=== PATIENT | female | born 1950 | race Caucasian/White ===

== ENCOUNTER → 2018-12-07 | Outpatient (CLI) | payer BC, MEDICAID, SELFPAY ==
[2018-10-13 13:27] VITALS: BMI 35.2
[2018-12-07 11:23] LABS: AST(SGOT) 17 U/L (15-37); Alanine Aminotransfer ALT/SGPT 18 U/L (13-56); Albumin, Serum 3.9 g/dL (3.2-5.0); Alkaline Phosphatase 107 U/L (45-117); Anion Gap 4 (5-15); BUN 11 mg/dL (7-18); Calcium,Total 8.9 mg/dL (8.5-10.1); Chloride 107 mmol/L (98-107); Cholesterol 301 mg/dL (200); Creatinine, Serum 0.79 mg/dL (0.55-1.02); EST Glomerular Filtration Rate 77 mL/min (>60); Est Glom Filt Rate - Afr Amer 93 mL/min (>60); Globulin 4.1 g/dL (2.2-4.2); Glucose 105 mg/dL (74-106); High Density Lipoprotein 47 mg/dL; Potassium 3.7 mmol/L (3.5-5.1); Sodium Level 140 mmol/L (136-145); Triglycerides 137 mg/dL; Very Low Density Lipoprotein 27 mg/dL (5-40)
== END | disposition home or self-care (01) ==
LOC: LAB 09:51
PROVIDERS: Family Provider Family Medicine; PCP Family Medicine; Referring Provider Family Medicine; Visit Provider Family Medicine
DX: I10 Essential (primary) hypertension (principal); E78.00 Pure hypercholesterolemia, unspecified
CPT/HCPCS: 36415; 80053; 80061

== ENCOUNTER → 2019-06-09 | Outpatient (CLI) | payer BC, SELFPAY ==
[2019-06-09 09:52] VITALS: BMI 37.5
[2019-06-09 12:40] LABS: Cholesterol 184 mg/dL (200); High Density Lipoprotein 41 mg/dL; Triglycerides 148 mg/dL; Very Low Density Lipoprotein 30 mg/dL (5-40)
== END | disposition home or self-care (01) ==
LOC: BIMLAB 10:22
PROVIDERS: Family Provider Family Medicine; PCP Family Medicine; Visit Provider Family Medicine
DX: E78.00 Pure hypercholesterolemia, unspecified (principal)
CPT/HCPCS: 36415; 80061

== ENCOUNTER → 2020-01-20 | Outpatient (CLI) | payer BC, MEDICAID, SELFPAY ==
[2020-01-20 14:13] VITALS: BMI 37.5
[2020-01-20 16:53] LABS: ALB/GLOB Ratio 0.9 RATIO (0.9-2.4); AST(SGOT) 10 U/L (15-37); Alanine Aminotransfer ALT/SGPT 20 U/L (13-56); Alkaline Phosphatase 133 U/L (45-117); Anion Gap 8 (5-15); BUN 8 mg/dL (7-18); BUN/Creat Ratio 10.8 RATIO (10-20); Calcium,Total 9.2 mg/dL (8.5-10.1); Chloride 102 mmol/L (98-107); Cholesterol 190 mg/dL (200); Creatinine, Serum 0.74 mg/dL (0.55-1.02); EST Glomerular Filtration Rate 82 mL/min (>60); Est Glom Filt Rate - Afr Amer 99 mL/min (>60); Globulin 4.5 g/dL (2.2-4.2); Glucose 97 mg/dL (74-106); High Density Lipoprotein 41 mg/dL; Potassium 3.7 mmol/L (3.5-5.1); Protein, Total 8.5 g/dL (6.4-8.2); Sodium Level 138 mmol/L (136-145); Triglycerides 192 mg/dL; Very Low Density Lipoprotein 38 mg/dL (5-40)
== END | disposition home or self-care (01) ==
LOC: BIMLAB 14:30
PROVIDERS: PCP Family Medicine; Referring Provider Family Medicine; Visit Provider Family Medicine
DX: E78.00 Pure hypercholesterolemia, unspecified (principal)
CPT/HCPCS: 36415; 80053; 80061

== ENCOUNTER → 2020-01-31 10:42 | Outpatient (CLI) | payer MEDICARE, MEDICAID, SELFPAY ==
[2020-01-20 14:13] VITALS: BMI 37.5
== END ==
PROVIDERS: PCP Family Medicine; Referring Provider Family Medicine; Visit Provider Family Medicine
DX: R00.2 Palpitations (principal)
CPT/HCPCS: 93225; 93226

== ENCOUNTER 2020-06-01 12:57 | Emergency (ER) | payer MEDICARE, MEDICAID, SELFPAY ==
[2020-01-20 14:13] VITALS: BMI 37.5
[2020-06-01 12:58] VITALS: BP 162/101; PULSE 70; RESP 18; TEMP 37; O2SAT 97; BMI 36.1
--- NOTE | 2020-06-01 14:14 | ED.VIS.GEN ---
History of Present Illness Chief Complaint: Cold Sx Informant: Patient Onset: Days - 2 Narrative: Patient presents requesting Covid testing. 2 days noted slight tickle in her throat. She has really minimal dry cough. No fevers. No loss of taste or smell. No headache or dizziness. No vomiting or diarrhea. Denies asthma or COPD history. No direct Covid exposures that are known. She called her PCP office today and appointment at 4 PM however did not want a wait. Prior similar symptoms: No Past Medical History - Allergies and Home Meds Allergies/Adverse Reactions: Allergies No Known Allergies Allergy (Verified 06/01/20 12:58) Primary Care Physician: Mane Lugo DO [Primary Care Provider] - Past Medical History: - - Hypertension, hypercholesterolemia Smoking Status: Never smoker Review of Systems General: Denies: Chills, Fever, Sweats Eyes: Denies: Visual changes - bilaterally, Diplopia ENT: Denies: Rhinorrhea, Sore throat Cardiovascular: Denies: Chest pain, Palpitations Respiratory: Reports: Cough. Denies: Dyspnea, Dyspnea on exertion Gastrointestinal: Denies: Abdominal pain, Nausea, Vomiting, Diarrhea, Melena, Hematochezia Genitourinary: Denies: Dysuria, Hematuria, Frequency Musculoskeletal: Denies: Back pain, Extremity Pain Skin: Denies: Rash, Wounds Neurological: Denies: Headache, Weakness, Numbness Physical Exam Vital Signs/Narrative: Vital Signs Temp Pulse Resp BP Pulse Ox 06/01/20 12:58 98.6 F 70 18 162/101 H 97 Inital Vital Signs reviewed: Yes General: Well nourished, Well developed, No Acute Distress Head: Normocephalic, Atraumatic Eyes: Perrl, EOMI ENT: Moist mucous membranes, No rhinorrhea Neck: Supple, Nontender Cardiovascular: Regular rate, Regular rhythm, No murmurs Respiratory: No distress, CTA bilaterally, Chest nontender Abdomen: Soft, Nontender, Nondistended, Normal bowel sounds Back: Nontender, Normal Inspection Extremities: Nontender, No edema Skin: Normal color, No rash Neurological: Alert, Oriented x3, Cranial nerves II-XII grossly intact, Normal Strength, Normal Sensation Psychological: Normal affect, Normal Mood Diagnostic/Tx/Re-eval - Medical Decision Making Patient vitals stable nontoxic. Pulse ox stable no acute distress. Covid testing obtained and sent. I do not feel imaging studies are necessary at this time with very minimal symptoms. Strict signs and symptom discussed to return. All questions were answered. ED Disposition - Plan for ED Patient: Disposition: Home or Assisted Living Diagnosis: Suspected COVID-19 virus infection, Cough Referrals: Mane Lugo, DO [Primary Care Provider] - 3-5 Days if not improving Additional Instructions: Covid test pending
== END 2020-06-01 14:57 | disposition home or self-care (01) ==
LOC: ED 14:54
PROVIDERS: Emergency Provider Emergency Medicine; PCP Family Medicine
DX: U07.1 COVID-19 (principal); I10 Essential (primary) hypertension; E78.00 Pure hypercholesterolemia, unspecified
CPT/HCPCS: 87635; 99281; U0003

== ENCOUNTER → 2021-02-06 11:54 | Outpatient (CLI) | payer MEDICARE, MEDICAID, SELFPAY ==
[2021-02-06 11:26] VITALS: BMI 37.5
[2021-02-06 15:33] LABS: ALB/GLOB Ratio 0.9 RATIO (0.9-2.4); AST(SGOT) 11 U/L (15-37); Alanine Aminotransfer ALT/SGPT 17 U/L (13-56); Albumin, Serum 3.9 g/dL (3.2-5.0); Alkaline Phosphatase 127 U/L (45-117); Anion Gap 5 (5-15); BUN 8 mg/dL (7-18); BUN/Creat Ratio 9.9 RATIO (10-20); Calcium,Total 9.1 mg/dL (8.5-10.1); Chloride 105 mmol/L (98-107); Cholesterol 183 mg/dL (200); Creatinine, Serum 0.81 mg/dL (0.55-1.02); EST Glomerular Filtration Rate 74 mL/min (>60); Est Glom Filt Rate - Afr Amer 89 mL/min (>60); Globulin 4.4 g/dL (2.2-4.2); Glucose 140 mg/dL (74-106); High Density Lipoprotein 45 mg/dL; Potassium 3.6 mmol/L (3.5-5.1); Protein, Total 8.3 g/dL (6.4-8.2); Sodium Level 137 mmol/L (136-145); Triglycerides 124 mg/dL; Very Low Density Lipoprotein 25 mg/dL (5-40)
== END ==
PROVIDERS: PCP Family Medicine; Visit Provider Family Medicine
DX: E78.00 Pure hypercholesterolemia, unspecified (principal); I10 Essential (primary) hypertension
CPT/HCPCS: 36415; 80053; 80061

== ENCOUNTER → 2022-03-06 | Outpatient (CLI) | payer MEDICARE, MEDICAID, SELFPAY ==
[2022-03-06 14:58] LABS: Absolute Lymphocyte Count 2.08 X10^3/uL (0.83-4.51); Absolute Neutrophil Count 4.8 X10^3/uL (2.0-7.7); Basophil# 0.05 X10^3/uL; Basophil% 0.6 % (0-1); Eosinophil# 0.39 X10^3/uL; Eosinophils% 4.9 % (0-5); Hematocrit 39.9 % (37-47); Hemoglobin 13.5 g/dL (12.0-15.0); Lymphocyte # 2.08 X10^3/ul (0.83-4.51); Lymphocyte % 26.1 % (19-41); Mean Corp Hgb Conc 33.8 g/dL (32-36); Mean Corpuscular Volume 91.5 fL (81-99); Mean Platelet Vol. 10.6 fl (6.2-12.0); Monocyte# 0.59 X10^3/uL; Monocyte% 7.4 % (0-10); NRBC Flagged by Analyzer 0 % (0-5); Neutrophil # 4.82 X10^3/uL (2.7-7.7); Neutrophil % 60.5 % (47-70); Platelet Count 350 K/mm3 (150-450); RBC Distribution Width CV 12.2 % (11.6-14.6); RBC Distribution Width SD 40.6 fl (35.1-43.9); Red Blood Count 4.36 M/mm3 (4.2-5.4)
[2022-03-06 15:48] LABS: AST(SGOT) 15 U/L (15-37); Alanine Aminotransfer ALT/SGPT 20 U/L (13-56); Albumin, Serum 3.9 g/dL (3.2-5.0); Alkaline Phosphatase 109 U/L (45-117); Anion Gap 4 (5-15); BUN 16 mg/dL (7-18); BUN/Creat Ratio 15.4 RATIO (10-20); Calcium,Total 9.1 mg/dL (8.5-10.1); Chloride 108 mmol/L (98-107); Cholesterol 193 mg/dL (200); Creatinine, Serum 1.04 mg/dL (0.55-1.02); EST Glomerular Filtration Rate 55 mL/min (>60); Est Glom Filt Rate - Afr Amer 67 mL/min (>60); Glucose 110 mg/dL (74-106); High Density Lipoprotein 41 mg/dL; Potassium 4.1 mmol/L (3.5-5.1); Protein, Total 7.9 g/dL (6.4-8.2); Sodium Level 138 mmol/L (136-145); Thyroid Stim Hormone (TSH) 1.23 uIU/mL (0.358-3.74); Triglycerides 246 mg/dL; Very Low Density Lipoprotein 49 mg/dL (5-40)
== END | disposition home or self-care (01) ==
LOC: BIMLAB 14:24
PROVIDERS: PCP Family Medicine; Visit Provider Nurse Practitioner Family
DX: I10 Essential (primary) hypertension (principal); E78.00 Pure hypercholesterolemia, unspecified; H81.10 Benign paroxysmal vertigo, unspecified ear
CPT/HCPCS: 36415; 80053; 80061; 84443; 85025

== ENCOUNTER 2022-11-30 20:32 | Inpatient (IN) | payer MEDICARE, MEDICAID, SELFPAY ==
[2022-11-30] VITALS (12 sets, daily range): BP systolic 132–158; BP diastolic 83–113; PULSE 99–114; RESP 18–28; TEMP 36.6–37; O2SAT 93–97; BMI 37.0
--- NOTE | 2022-11-30 19:58 | NURSING ---
Patient states that a doctor not sure of which one? They told her to stop taking all of her medication and only take Cardizem and Losartan.
--- NOTE | 2022-11-30 20:36 | CT_ITS ---
STUDY: CTA CHEST REASON FOR EXAM: Female, 72 years old. hypoxia RADIATION DOSAGE (If Supplied By Facility): CTDIvol = ( 24.36 ) mGy, DLP = ( 714.18 ) mGycm TECHNIQUE: The examination was performed with the intravenous administration of IV 100mL Isovue-370. Post-processing of the angiographic images was performed, with multiplanar reformation and 3D reconstruction. Individualized dose optimization techniques were used for this CT. COMPARISON: None. FINDINGS: Normal enhancement of the main pulmonary artery and right and left pulmonary arteries. Normal enhancement of the bilateral peripheral pulmonary arteries. There is no demonstrated pulmonary embolism. Normal thoracic aorta and visualized great vessels. There is no demonstrated aortic dissection. Normal heart and pericardium. Normal mediastinum. Normal hilar regions. Normal visualized trachea and bronchi. The lungs are well expanded. Normal pulmonary parenchyma. Moderate bilateral pleural effusions with bibasilar atelectasis. Normal chest wall structures. Normal osseous structures. Normal visualized upper abdomen. CT/CTA Chest W/WO Contrast IMPRESSION: No CT evidence of pulmonary embolism. Moderate bilateral pleural effusions with bibasilar atelectasis. Electronically Signed: Koko Castillo MD at 22:26 EDT ,
--- NOTE | 2022-11-30 20:42 | HP.PCM.HOS_ITS ---
HPI - General General Date of Admission: 11/30/22 Date of Service: 11/30/22 Chief Complaint: Shortness of breath HPI Narrative LACI REDDING, is a 72 F who presented to [facility] emergency department complaining of acute onset shortness of breath that started at 2 PM this afternoon. She lives with her daughter and she states her daughter bathes and perfumes. She states when she was exposed today she developed acute shortness of breath. She has no history of asthma or COPD and was never smoker. She has been diagnosed with A-fib with RVR and was recently seen (approximately 1 month ago) and Dr. Gallo's office. Her heart rate at that time was 136 and he had recommended increasing her metoprolol to 100 mg daily and he added Cardizem 120 mg. She was on Xarelto at that time. Upon presentation over it [facility] ED she was only taking Cardizem and losartan. I did question her about this and she states that someone told her to stop the other medications but was unable to tell me who did so. She indicated it was not the lime vat tender. She reported she felt fine before that. She has had no chest pain. She was having no shortness of breath previous to that. She has had no swelling in her legs or significant cough, fevers, or chills. Upon my exam she has significant increased work of breathing with tachycardia and tachypnea. Vital signs on presentation here demonstrated temperature of 98.6, heart rate 114 (heart rate at outside hospital was between 110 and 140), blood pressure is 154/113, respiratory rate 26, oxygen saturation is 95% on room air. She was documented to be in the 80s on room air prior to being transferred. Her CBC on presentation outside facility was unremarkable, chemistry panel was unremarkable, troponin was 785.9 and coags were normal. Chest x-ray and brain natruretic peptide were not done outside facility however I have ordered a CTA of the chest and a BNP here. EKG shows atrial fibrillation with very mild lateral T wave flattening and normal intervals but no changes consistent with acute ischemia. She was started on a Cardizem drip and a heparin drip prior to transfer. [facility] Medical History Atrial fibrillation BPPV (benign paroxysmal positional vertigo) Confusion Dizziness Essential hypertension Gait disturbance High cholesterol Hyperlipidemia Hypertension Intermittent palpitations Near syncope Nevus Non-smoker Thyroid nodule Home Medications losartan 100 mg tablet 100 mg PO QDAY #90 tabs 10/31/22 [Rx Last Taken Unknown] diltiazem HCl 120 mg capsule,extended release 24 hr (Cardizem CD) 120 mg PO DAILY heart rate 11/30/22 [History Last Taken Unknown] Allergy/AdvReac Type Severity Reaction Status Date / Time No Known Allergies Allergy Verified 10/31/22 13:10 Family History Father Hypertension High cholesterol Brother Parkinson disease Sister Seizures Sister Seizures Surgical History History of appendectomy History of cholecystectomy History of D&C History of foot surgery History of hysterectomy Social History (Updated 11/30/22 @ 20:[address] Autumn Villarreal DO) household members: family housing: house Smoking Status: Never smoker alcohol intake: never substance use type: does not use caffeine: Yes Type: carbonated beverages and tea Number of servings: 1 what type of physical activity do you participate in: none ROS Constitutional Constitutional: Denies anorexia, change in weight, chills, fatigue, fever(s), m alaise, night sweats, weakness or other Eyes Eyes: Denies blurry vision, change in eye color, change in vision, discharge from eye(s), double vision, erythema, eye pain, loss of vision or other ENT HEENT: Denies abnormal hearing, dysphagia, ear pain, epistaxis, headache(s), hearing loss, nasal congestion, nasal discharge, post nasal drip, sinus pressure, sore throat or other Cardiovascular Cardiovascular: Reports dyspnea on exertion; Denies chest pain, claudication, edema, lightheadedness, orthopnea, palpitations, paroxysmal nocturnal dyspnea, rapid heart rate, syncope or other Respiratory/Chest Respiratory/Chest: Reports shortness of breath at rest and shortness of breath with exertion; Denies cough, dyspnea, excessive phlegm production, hemoptysis, productive cough, wheezing or other Gastrointestinal Gastrointestinal: Denies abdominal pain, coffee ground emesis, constipation, diarrhea, dyspepsia, hematemesis, hematochezia, loose stools, melena, nausea, vomiting or other Genitourinary Genitourinary: Denies burning urination, difficulty urinating, dysuria, hematuria, nocturia, urinary frequency, urinary hesitancy, urinary incontinence, urinary urgency or other Musculoskeletal Musculoskeletal: Denies arthralgias, back pain, joint pain, joint stiffness, joint swelling, myalgias, neck pain or other Neurologic Neurologic: Denies abnormal gait, abnormal speech, confusion, disequilibrium, di zziness, focal weakness, headache(s), numbness, paresthesias, seizure-like activity, seizures, syncope, tingling, tremor(s) or other Psychiatric Psychiatric: Denies anxiety, depression, homicidal ideation, suicidal ideation or other Endocrine Endocrinology: Denies change in body appearance, cold intolerance, excessive sweating, heat intolerance, polydipsia, polyuria or other Hematologic/Lymphatic Hematologic/Lymphatic: Denies anemia, easy bleeding, easy bruising, lymphadenopathy or other Allergic/Immunologic Allergic/Immunologic: Denies rhinitis, hives, eczemia, asthma or other Vital Signs Vital Signs Vital Signs: 11/30/22 20:00 Temperature 98.6 F Temperature Source Oral Pulse Rate 114 H Respiratory Rate 26 H Blood Pressure 154/113 H Blood Pressure Mean 126 Blood Pressure Source Monitor Blood Pressure Position Semi-Fowlers Blood Pressure Location Right Forearm Pulse Ox 95 Oxygen Delivery Method Nasal Cannula Oxygen Flow Rate (L/min) 4 Weight Weight: 110.7 kg Body Mass Index (BMI) 37.0 Physical Exam Const alert, oriented x3 and well nourished; Negative for no apparent distress Constitutional Narrative: Obese, older white female, sitting up in bed, patient is significantly dyspneic at rest and with conversation on exam however she is quite talkative General Appearance: cooperative HEENT normocephalic, head/scalp atraumatic, hearing grossly normal bilaterally and moist oral mucous membranes HEENT Narrative: Edentulous with dentures in place, Mallampati 2, no thrush Eyes PERRL, EOMs intact bilaterally and conjunctivae normal Eyes Narrative: No scleral icterus Neck no lymphadenopathy, supple, No no JVD and no carotid bruits Neck Narrative: Positive JVD Resp no retractions and no use of accessory muscles Resp Narrative: Patient is a mild aspiratory distress with no signs of extremis, significant conversational dyspnea and dyspnea at rest, bibasilar crackles Auscultation: crackles; Negative for rhonchi or wheezes Cardio S1 normal heart sound, S2 normal heart sound, no murmurs, no rub, no gallops and no clicks Cardio Narrative: Tachycardia with irregularly irregular rhythm GI normal to inspection, nondistended, normoactive bowel sounds, soft to palpation and non-tender Extremity no clubbing, cyanosis or edema Extremity Narrative: 2+ pedal pulses Skin no rashes or lesions noted, no wounds, skin turgor normal, no jaundice, no petechiae and no mottling Neuro oriented x3, CN's II-XII intact bilaterally, moves all extremities and no focal motor deficits Speech: speech normal Motor Exam: strength 5/5 throughout Psych affect normal Psych Narrative: Patient pleasant, appropriate but seems somewhat anxious Assessment & Plan Assessment/Plan (1) Atrial fibrillation: (2) NSTEMI, initial episode of care: (3) Acute respiratory failure with hypoxia: (4) Medical non-compliance: PLAN: Plan A-fib with RVR -We will start home medications with metoprolol and oral Cardizem in hopes that we can wean the Cardizem drip -Continue heparin drip for now with transition to Xarelto once definitive management for NSTEMI has been decided -Check TSH -Check echocardiogram -Consult cardiology -Patient follows with Dr. Gallo at baseline NSTEMI -Unclear if this is demand ischemia with a type II NSTEMI related to her A-fib with RVR versus type I -Cycle cardiac enzymes -Check echocardiogram -Check lipids -Start atorvastatin 80 mg -Start aspirin daily -Continue metoprolol -Consult cardiology--> if needs cardiac catheterization will need to wait till Friday and less symptomatic Acute hypoxic respiratory failure -Patient without history of asthma or COPD so I highly doubt that this is irritant mediated hypoxia -I am more suspicious with heart failure with the above -Stat BMP and CTA pending to rule out heart failure and PE -Patient has not been compliant with her Xarelto -Continue supplemental oxygen and wean as able -Currently requiring 4 L -If looks like heart failure we will go ahead and start Lasix -If PE patient is already on a heparin drip and will continue Hypertension -Continue metoprolol and Cardizem as ordered -Discontinue losartan BPPV -It appears that patient is supposed to be an outpatient meclizine -Daughter is bringing and home medications to help with medic reconciliation -We will start on discharge if she is on this medication Hyperlipidemia -Patient is not currently on any medication -Check lipids as above -Atorvastatin for NSTEMI DVT prophylaxis -Patient is fully anticoagulated with heparin drip and will be on Xarelto subsequently CODE STATUS -Full code as verified on admission Charges/Coding Visit Charges Inpatient E&M: 30046 Init Hosp L3
[2022-11-30] MEDS: Atorvastatin Calcium 80 MG Tablet PO (21:28)
[2022-11-30] MEDS: Metoprolol(XL)Succ 100 MG Tablet PO (21:28)
[2022-11-30] MEDS: dilTIAZem CD 120 MG Capsule PO (21:28)
[2022-11-30] MEDS: Albuterol 2.5 MG/3 ML VIAL.NEB. INHALATION (21:36)
[2022-11-30 21:45] LABS: Troponin-I HS 2934 pg/mL (3.0-54.0)
[2022-11-30 21:46] LABS: BNP,B-Type NATRIURETIC PEPTIDE 252.3 pg/mL (0-100)
[2022-11-30] MEDS: Furosemide 40 MG/4 ML Vial IV (22:46)
[2022-11-30] MEDS: 0.9% Saline Lock 10 ML Syringe IV (22:46)
[2022-12-01] VITALS (11 sets, daily range): BP systolic 111–146; BP diastolic 64–100; PULSE 68–115; RESP 16–20; TEMP 36.4–37.1; O2SAT 85–99; BMI 36.8
[2022-12-01 00:36] LABS: Partial Thromboplast Time 36.7 Seconds (24.1-36.2)
[2022-12-01] MEDS: MELATONIN 3 MG TABLET PO (00:50)
[2022-12-01] MEDS: Heparin Injection (Vial) 5,000 UNIT/ML VIAL IV (00:50)
[2022-12-01] MEDS: HEPARIN/D5w 25,000 UNITS 25,000 UNITS/250 ML IV.SOLN. 12 UNITS CONT INF ×2 (00:50→21:22)
[2022-12-01 00:57] LABS: Troponin-I HS 3271 pg/mL (3.0-54.0)
[2022-12-01 02:44] LABS: Absolute Lymphocyte Count 2.33 X10^3/uL (0.83-4.51); Absolute Neutrophil Count 7.1 X10^3/uL (2.0-7.7); Basophil# 0.04 X10^3/uL; Basophil% 0.4 % (0-1); Eosinophil# 0.16 X10^3/uL; Eosinophils% 1.5 % (0-5); Hematocrit 37.4 % (37-47); Hemoglobin 11.9 g/dL (12.0-15.0); Lymphocyte # 2.33 X10^3/ul (0.83-4.51); Lymphocyte % 22.2 % (19-41); Mean Corp Hgb Conc 31.8 g/dL (32-36); Mean Corpuscular Hgb 28.7 pg (27.0-32.0); Mean Corpuscular Volume 90.1 fL (81-99); Monocyte# 0.82 X10^3/uL; Monocyte% 7.8 % (0-10); NRBC Flagged by Analyzer 0 % (0-5); Neutrophil % 67.6 % (47-70); Platelet Count 373 K/mm3 (150-450); RBC Distribution Width CV 12.7 % (11.6-14.6); RBC Distribution Width SD 41.4 fl (35.1-43.9); Red Blood Count 4.15 M/mm3 (4.2-5.4); White Blood Count 10.5 K/mm3 (4.4-11.0)
[2022-12-01 03:06] LABS: ALB/GLOB Ratio 0.9 RATIO (0.9-2.4); AST(SGOT) 40 U/L (15-37); Alanine Aminotransfer ALT/SGPT 27 U/L (13-56); Albumin, Serum 3.3 g/dL (3.2-5.0); Alkaline Phosphatase 113 U/L (45-117); Anion Gap 6 (5-15); BUN 8 mg/dL (7-18); BUN/Creat Ratio 10.4 RATIO (10-20); Calcium,Total 8.5 mg/dL (8.5-10.1); Chloride 101 mmol/L (98-107); Cholesterol 209 mg/dL (200); Creatinine, Serum 0.77 mg/dL (0.55-1.02); EST Glomerular Filtration Rate 78 mL/min (>60); Est Glom Filt Rate - Afr Amer 94 mL/min (>60); Estimated Creatinine Clearance 49.79 ml/min; Globulin 3.7 g/dL (2.2-4.2); Glucose 138 mg/dL (74-106); High Density Lipoprotein 38 mg/dL; Magnesium 1.9 mg/dL (1.6-2.6); Phosphorus 3.7 mg/dL (2.5-4.9); Potassium 3.6 mmol/L (3.5-5.1); Sodium Level 132 mmol/L (136-145); Thyroid Stim Hormone (TSH) 1.26 uIU/mL (0.358-3.74); Triglycerides 122 mg/dL; Very Low Density Lipoprotein 24 mg/dL (5-40)
[2022-12-01 03:41] LABS: Troponin-I HS 3193 pg/mL (3.0-54.0)
--- NOTE | 2022-12-01 05:55 | ECHOD_ITS ---
Reason For Study: Afib/Flutter Procedure This was a 2D Doppler, Color Flow transthoracic echocardiogram. Exam performed portable in patient room. Left Ventricle Normal LV size. Moderate concentric left ventricular hypertrophy. Moderate global left ventricular systolic dysfunction. The left ventricular ejection fraction is 40 %. Right Ventricle Normal RV size. Mild to moderate global right ventricular systolic dysfunction. Atria The left atrium is severely enlarged. The right atrium is moderately enlarged. Mitral Valve Mild mitral annular calcification. Mild (1+) mitral valve insufficiency. Tricuspid Valve Moderate (2+) tricuspid valve insufficiency. Normal pulmonary artery pressure. Aortic Valve Aortic sclerosis, no stenosis. Mild (1+) aortic valve insufficiency. Pulmonic Valve The pulmonic valve is not well visualized. Great Vessels Normal sized aortic root. Pericardium/Pleural No pericardial effusion. MMode/2D Measurements & Calculations LVIDd: 4.7 cm IVSd: 1.7 cm Ao root diam: 3.3 cm LVIDs: 3.6 cm LVPWd: 1.3 cm LA dimension: 4.4 cm RVDd: 3.5 cm FS: 24.4 % LAV(MOD-bp): 82.7 ml LA A4 area: 27.4 cm2 RA A4 area: 22.3 cm2 LAV(MOD-bp) Indexed: 37.4 ml/m2 LAV(MOD-sp2): 62.6 ml LAV(MOD-sp4): 87.8 ml Doppler Measurements & Calculations MV E max joe: 73.3 cm/sec MV V2 max: 91.9 cm/sec Ao V2 max: 118.6 cm/sec MV max P.4 mmHg Ao max P.8 mmHg MV V2 mean: 45.1 cm/sec Ao V2 mean: 88.0 cm/sec MV mean P.0 mmHg Ao mean P.6 mmHg MV V2 VTI: 16.4 cm Ao V2 VTI: 22.0 cm AV (velocity ratio): 0.74 LV V1 max: 78.0 cm/sec PA V2 max: 59.9 cm/sec TR max joe: 267.6 cm/sec LV V1 max P.5 mmHg TR max P.6 mmHg LV V1 mean P.8 mmHg LV V1 mean: 63.1 cm/sec LV V1 VTI: 16.3 cm ECHO/Echo Complete Interpretation Summary Moderate concentric left ventricular hypertrophy. Moderate global left ventricular systolic dysfunction. The left ventricular ejection fraction is 40 %. Mild to moderate global right ventricular systolic dysfunction. The left atrium is severely enlarged. The right atrium is moderately enlarged. Mild mitral annular calcification. Mild (1+) mitral valve insufficiency. Moderate (2+) tricuspid valve insufficiency. Aortic sclerosis, no stenosis. Mild (1+) aortic valve insufficiency. Ordering Physician: Autumn Villarreal Referring Physician: Epi Lugo M.D. Performed By: Dino Devries RCS
[2022-12-01 06:42] LABS: Partial Thromboplast Time 56.5 Seconds (24.1-36.2)
[2022-12-01] MEDS: Aspirin E.C. 81 MG Tablet PO (09:00)
--- NOTE | 2022-12-01 09:04 | EKG12_ITS ---
Test Reason : INITIAL Blood Pressure : / mmHG Vent. Rate : 088 BPM Atrial Rate : 000 BPM P-R Int : 000 ms QRS Dur : 090 ms QT Int : 424 ms P-R-T Axes : 000 055 214 degrees QTc Int : 513 ms Atrial fibrillation T wave abnormality, consider anterolateral ischemia Prolonged QT Abnormal ECG No previous ECGs available Confirmed by MIKE PEARL, ANA ([id number]), development editor HARMONY MONTEMAYOR ([id number]) on 12/03/2022 11:48:54 AM Referred By: KINJAL Confirmed By:ANA MCKEON MD
--- NOTE | 2022-12-01 09:24 | PCM.CONS.C ---
Assessment & Plan Assessment/Plan (1) NSTEMI, initial episode of care: PLAN: Presently asymptomatic. Continue medications. Discussed with patient regarding further course of action. Coronary angiography with possible revascularization offered. Risks benefits and alternatives discussed. She understand these and wishes to proceed. We will schedule her for coronary angiography in the morning. (2) Atrial fibrillation: PLAN: Continue rate control with metoprolol and diltiazem. (3) Essential hypertension: PLAN: Controlled. Continue diltiazem and metoprolol. (4) Hyperlipidemia: PLAN: On atorvastatin. HPI Consult Data Date of Consult: 12/01/22 HPI Narrative Reason for Consultation: NSTEMI HPI Narrative: The patient presented to the emergency room with complaints of acute onset shortness of breath. Since, her blood work-up has revealed elevated troponins ruling her in for non-ST elevation myocardial infarction. Patient denies any chest pains. [facility] Medical History Atrial fibrillation BPPV (benign paroxysmal positional vertigo) Confusion Dizziness Essential hypertension Gait disturbance High cholesterol Hyperlipidemia Hypertension Intermittent palpitations Near syncope Nevus Non-smoker Thyroid nodule Home Medications losartan 100 mg tablet 100 mg PO QDAY #90 tabs 10/31/22 [Rx Last Taken Unknown] diltiazem HCl 120 mg capsule,extended release 24 hr (Cardizem CD) 120 mg PO DAILY heart rate 11/30/22 [History Last Taken Unknown] Allergy/AdvReac Type Severity Reaction Status Date / Time No Known Allergies Allergy Verified 10/31/22 13:10 Family History Father Hypertension High cholesterol Brother Parkinson disease Sister Seizures Sister Seizures Surgical History History of appendectomy History of cholecystectomy History of D&C History of foot surgery History of hysterectomy Social History (Updated 11/30/22 @ 20:[address] Autumn Villarreal DO) household members: family housing: house Smoking Status: Never smoker alcohol intake: never substance use type: does not use caffeine: Yes Type: carbonated beverages and tea Number of servings: 1 what type of physical activity do you participate in: none Physical Exam Narrative Comfortable. No distress. No JVD. Heart sounds 1 and 2 are noted. Irregularly irregular. Chest clear to auscultation bilaterally. Abdomen soft. Alert oriented x3. No ankle edema. Risk Stratification Risk Stratification Applicable: No Objective Data Vital Signs: Vital Signs Temp Pulse Resp BP Pulse Ox O2 Del Method O2 Flow Rate 98.8 F 70 18 126/72 H 99 Nasal Cannula 5 12/01/22 04:00 12/01/22 04:00 12/01/22 04:00 12/01/22 04:00 12/01/22 04:00 12/01/22 07:35 12/01/22 07:35 FiO2 96 11/30/22 21:55 Oxygen Flow Rate (L/min) 5 Oxygen Delivery Method Nasal Cannula Weight: 242 lb 4.608 oz Body Mass Index (BMI) 36.8 Intake & Output: Intake and Output for Last 24 Hours 11/29/22 11/30/22 12/01/22 23:59 23:59 23:59 Intake Total 229.25 / 229.25 Output Total 1800 / 1800 Balance -1570.75 / -1570.75 Lab / Micro Data Result Diagrams: 12/01/22 02:37 12/01/22 02:37 Labs: Laboratory Results - last 24 hr 11/30/22 21:05: B-Natriuretic Peptide 252.3 H 11/30/22 21:05: Troponin I High Sens 2934 H* 12/01/22 00:10: APTT 36.7 H 12/01/22 00:10: Troponin I High Sens 3271 H* 12/01/22 02:37: WBC 10.5, RBC 4.15 L, Hgb 11.9 L, Hct 37.4, MCV 90.1, MCH 28.7, MCHC 31.8 L, RDW Std Deviation 41.4, RDW Coeff of Brianna 12.7, Plt Count 373, MPV 10.0, Immature Gran % (Auto) 0.500, Neut % (Auto) 67.6, Lymph % (Auto) 22.2, Mcdonough % (Auto) 7.8, Eos % (Auto) 1.5, Baso % (Auto) 0.4, Absolute Neuts (auto) 7.1, Absolute Lymphs (auto) 2.33, Nucleated RBC % 0 12/01/22 02:37: Sodium 132 L, Potassium 3.6, Chloride 101, Carbon Dioxide 25.0, Anion Gap 6, BUN 8, Creatinine 0.77, Estim Creat Clear Calc 49.79, Est GFR (MDRD) Af Amer 94, Est GFR (MDRD) Non-Af 78, BUN/Creatinine Ratio 10.4, Glucose 138 H, Calcium 8.5, Phosphorus 3.7, Magnesium 1.9, Total Bilirubin 1.00, AST 40 H, ALT 27, Alkaline Phosphatase 113, Total Protein 7.0, Albumin 3.3, Globulin 3.7, Albumin/Globulin Ratio 0.9, Triglycerides 122, Cholesterol 209 H, LDL Cholesterol 147 H, VLDL Cholesterol 24, HDL Cholesterol 38 L, TSH 1.26 12/01/22 02:37: Troponin I High Sens 3193 H* 12/01/22 06:20: APTT 56.5 H Cardiology Labs/Tests 11/30/22 21:05: B-Natriuretic Peptide 252.3 H 12/01/22 00:10: APTT 36.7 H 12/01/22 02:37: WBC 10.5, RBC 4.15 L, Hgb 11.9 L, Hct 37.4, MCV 90.1, MCH 28.7, MCHC 31.8 L, Plt Count 373, MPV 10.0, Immature Gran % (Auto) 0.500, Neut % (Auto) 67.6, Lymph % (Auto) 22.2, Mcdonough % (Auto) 7.8, Eos % (Auto) 1.5, Baso % (Auto) 0.4, Absolute Neuts (auto) 7.1, Nucleated RBC % 0 12/01/22 02:37: Sodium 132 L, Potassium 3.6, Chloride 101, Carbon Dioxide 25.0, Anion Gap 6, BUN 8, Creatinine 0.77, Est GFR (MDRD) Af Amer 94, Est GFR (MDRD) Non-Af 78, BUN/Creatinine Ratio 10.4, Glucose 138 H, Calcium 8.5, Phosphorus 3.7, Magnesium 1.9, Total Bilirubin 1.00, Triglycerides 122, Cholesterol 209 H, LDL Cholesterol 147 H, VLDL Cholesterol 24, HDL Cholesterol 38 L 12/01/22 06:20: APTT 56.5 H Rhythm: EKG: ECHO: Stress Test: Cardiac Cath: PCI: CT Surgery: Holter monitor: EPS: PPM: CXR: Chest CT Scan: Radiography Diagnostic Testing: Radiology Impression Chest CTA 11/30/22 20:36 IMPRESSION: No CT evidence of pulmonary embolism. Moderate bilateral pleural effusions with bibasilar atelectasis. Electronically Signed: Koko Castillo MD at 22:26 EDT ,
[2022-12-01] MEDS: 0.9% Saline Lock 10 ML Syringe IV ×2 (10:47→21:22)
[2022-12-01] MEDS: Furosemide 40 MG/4 ML Vial IV ×2 (10:48→17:47)
[2022-12-01] MEDS: dilTIAZem CD 120 MG Capsule PO (10:48)
[2022-12-01] MEDS: Metoprolol(XL)Succ 100 MG Tablet PO (10:48)
--- NOTE | 2022-12-01 12:50 | PN.HOSP_ITS ---
Reason for Visit Reason for Visit: Diagnoses Hyperlipidemia, unspecified (11/30/22) Essential (primary) hypertension (11/30/22) Non-ST elevation (NSTEMI) myocardial infarction (11/30/22) Unspecified atrial fibrillation (11/30/22) Acute respiratory failure with hypoxia (11/30/22) Patient's noncompliance with other medical treatment and regimen due to unspecified reason (11/30/22) Subjective Subjective Patient was seen and examined today, she is currently on 5 L of oxygen via nasal cannula and appears comfortable, I talked briefly with cardiology about her care, they are planning on doing a heart catheterization tomorrow. Objective Data Objective Data Vital Signs: Vital Signs Temp Pulse Resp BP Pulse Ox O2 Del Method O2 Flow Rate 98.8 F 89 18 131/84 H 99 Nasal Cannula 5 12/01/22 04:00 12/01/22 10:48 12/01/22 04:00 12/01/22 10:48 12/01/22 04:00 12/01/22 07:35 12/01/22 07:35 FiO2 96 11/30/22 21:55 Oxygen Flow Rate (L/min) 5 Oxygen Delivery Method Nasal Cannula Weight: 109.9 kg Body Mass Index (BMI) 36.8 Intake & Output: Intake and Output for Last 24 Hours 11/29/22 11/30/22 12/01/22 23:59 23:59 23:59 Intake Total 229.25 / 229.25 Output Total 1800 / 1800 Balance -1570.75 / -1570.75 Lab / Micro Data Result Diagrams: 12/01/22 02:37 12/01/22 02:37 Labs: Laboratory Results - last 24 hr 11/30/22 21:05: B-Natriuretic Peptide 252.3 H 11/30/22 21:05: Troponin I High Sens 2934 H* 12/01/22 00:10: APTT 36.7 H 12/01/22 00:10: Troponin I High Sens 3271 H* 12/01/22 02:37: WBC 10.5, RBC 4.15 L, Hgb 11.9 L, Hct 37.4, MCV 90.1, MCH 28.7, MCHC 31.8 L, RDW Std Deviation 41.4, RDW Coeff of Brianna 12.7, Plt Count 373, MPV 10.0, Immature Gran % (Auto) 0.500, Neut % (Auto) 67.6, Lymph % (Auto) 22.2, Gaines % (Auto) 7.8, Eos % (Auto) 1.5, Baso % (Auto) 0.4, Absolute Neuts (auto) 7.1, Absolute Lymphs (auto) 2.33, Nucleated RBC % 0 12/01/22 02:37: Sodium 132 L, Potassium 3.6, Chloride 101, Carbon Dioxide 25.0, Anion Gap 6, BUN 8, Creatinine 0.77, Estim Creat Clear Calc 49.79, Est GFR (MDRD ) Af Amer 94, Est GFR (MDRD) Non-Af 78, BUN/Creatinine Ratio 10.4, Glucose 138 H , Calcium 8.5, Phosphorus 3.7, Magnesium 1.9, Total Bilirubin 1.00, AST 40 H, ALT 27, Alkaline Phosphatase 113, Total Protein 7.0, Albumin 3.3, Globulin 3.7, Albumin/Globulin Ratio 0.9, Triglycerides 122, Cholesterol 209 H, LDL Cholesterol 147 H, VLDL Cholesterol 24, HDL Cholesterol 38 L, TSH 1.26 12/01/22 02:37: Troponin I High Sens 3193 H* 12/01/22 06:20: APTT 56.5 H Radiography Diagnostic Testing: Radiology Impression Chest CTA 11/30/22 20:36 IMPRESSION: No CT evidence of pulmonary embolism. Moderate bilateral pleural effusions with bibasilar atelectasis. Electronically Signed: Koko Castillo MD at 22:26 EDT , Physical Exam Const alert, oriented x3, no apparent distress and healthy appearing General Appearance: cooperative, well kempt and well developed Orientation / Consciousness: awake, oriented to person, oriented to place and oriented to time HEENT normocephalic, head/scalp atraumatic and moist oral mucous membranes Eyes PERRL, EOMs intact bilaterally and conjunctivae normal Neck supple, no JVD, thyroid normal and no carotid bruits General: trachea midline Resp normal respiratory effort, no retractions and no use of accessory muscles Resp Narrative: Breath sounds are diminished bilaterally at the base Auscultation: Negative for rales, rhonchi or wheezes Cardio S1 normal heart sound, S2 normal heart sound, no murmurs, no rub and no gallops Cardio Narrative: Heart rate and rhythm is irregular GI normal to inspection, nondistended, normoactive bowel sounds, soft to palpation, non-tender and non-distended Extremity no clubbing, cyanosis or edema Skin no rashes or lesions noted General Skin Exam: no breakdown Neuro oriented x3, CN's II-XII intact bilaterally, moves all extremities, no focal motor deficits and no sensory deficits noted Sensorium / Orientation: awake, alert, oriented to person, oriented to place and oriented to time Speech: speech normal Psych affect normal Assessment & Plan Assessment/Plan (1) Acute respiratory failure with hypoxia: PLAN: Plan 1. [id number] was seen by cardiology today, she will undergo cardiac catheterization tomorrow, she is under full anticoagulation at the present time #2 acute hypoxic respiratory failure secondary to congestive heart failure- patient is currently on IV Lasix #3 chronic A-fib with RVR-patient is on rate control medication at this time and she is on IV heparin, patient is not on a Cardizem drip any longer, cardiology is participating in her care #4 essential hypertension-patient will remain on her current medications #5 hyperlipidemia-patient is on a statin Total clinical time spent by myself addressing the patient's medical issues, reviewing all of her data, and collaborating with patient's care team 35 minutes Charges/Coding Visit Charges Inpatient E&M: 74584 Subs Hosp L2
[2022-12-01 12:58] LABS: Partial Thromboplast Time 57.1 Seconds (24.1-36.2)
[2022-12-01] MEDS: Atorvastatin Calcium 80 MG Tablet PO (21:22)
[2022-12-02] VITALS (11 sets, daily range): BP systolic 111–133; BP diastolic 74–115; PULSE 77–94; RESP 17–24; TEMP 36.3–36.8; O2SAT 93–98; BMI 36.8
--- NOTE | 2022-12-02 05:00 | EKG12_ITS ---
Test Reason : AM EKG Blood Pressure : / mmHG Vent. Rate : 092 BPM Atrial Rate : 000 BPM P-R Int : 000 ms QRS Dur : 090 ms QT Int : 384 ms P-R-T Axes : 000 036 240 degrees QTc Int : 474 ms Atrial fibrillation T wave abnormality, consider inferior ischemia T wave abnormality, consider anterolateral ischemia Prolonged QT Abnormal ECG When compared with ECG of 01-DEC-2022 09:43, MANUAL COMPARISON REQUIRED, DATA IS UNCONFIRMED Confirmed by MIKE PEARL, ANA ([id number]), visual effects editor HARMONY MONTEMAYOR ([id number]) on 12/03/2022 11:45:41 AM Referred By: Confirmed By:ANA MCKEON MD
[2022-12-02] MEDS: 0.9% Saline Lock 10 ML Syringe IV (05:12)
[2022-12-02] MEDS: 0.9% Normal Saline 1,000 ML 15 ML IV (05:12)
[2022-12-02] MEDS: Metoprolol(XL)Succ 100 MG Tablet PO (05:14)
[2022-12-02] MEDS: Aspirin E.C. 81 MG Tablet PO (05:14)
[2022-12-02] MEDS: dilTIAZem CD 120 MG Capsule PO (05:15)
[2022-12-02 07:35] LABS: Anion Gap 6 (5-15); BUN 15 mg/dL (7-18); BUN/Creat Ratio 18.7 RATIO (10-20); Calcium,Total 9.2 mg/dL (8.5-10.1); Chloride 102 mmol/L (98-107); EST Glomerular Filtration Rate 74 mL/min (>60); Est Glom Filt Rate - Afr Amer 90 mL/min (>60); Estimated Creatinine Clearance 62.24 ml/min; Glucose 123 mg/dL (74-106); Potassium 3.4 mmol/L (3.5-5.1); Sodium Level 135 mmol/L (136-145)
--- NOTE | 2022-12-02 07:48 | PN.HOSP_ITS ---
Reason for Visit Reason for Visit: Diagnoses Hyperlipidemia, unspecified (11/30/22) Essential (primary) hypertension (11/30/22) Non-ST elevation (NSTEMI) myocardial infarction (11/30/22) Unspecified atrial fibrillation (11/30/22) Acute respiratory failure with hypoxia (11/30/22) Patient's noncompliance with other medical treatment and regimen due to unspecified reason (11/30/22) Subjective Subjective Follow-up for non-STEMI. Scheduled for cardiac cath in the morning today. Objective Data Objective Data Vital Signs: Vital Signs Temp Pulse Resp BP Pulse Ox O2 Del Method O2 Flow Rate 97.3 F L 93 18 133/97 H 96 Nasal Cannula 3 12/02/22 05:10 12/02/22 05:14 12/02/22 05:10 12/02/22 05:10 12/02/22 05:10 12/02/22 05:10 12/02/22 05:10 FiO2 96 11/30/22 21:55 Oxygen Flow Rate (L/min) 3 Oxygen Delivery Method Nasal Cannula Weight: 241 lb 13.553 oz Body Mass Index (BMI) 36.8 Intake & Output: Intake and Output for Last 24 Hours 11/30/22 12/01/22 12/02/22 23:59 23:59 23:59 Intake Total 895.65 / 1045.65 254.35 / 254.35 Output Total 2400 / 2400 Balance -1504.35 / -1354.35 254.35 / 254.35 Lab / Micro Data Result Diagrams: 12/01/22 02:37 12/02/22 06:40 Labs: Laboratory Results - last 24 hr 12/01/22 12:40: APTT 57.1 H 12/02/22 06:40: Sodium 135 L, Potassium 3.4 L, Chloride 102, Carbon Dioxide 27.0, Anion Gap 6, BUN 15, Creatinine 0.80, Estim Creat Clear Calc 62.24, Est GFR (MDRD) Af Amer 90, Est GFR (MDRD) Non-Af 74, BUN/Creatinine Ratio 18.7, Glucose 123 H, Calcium 9.2 Physical Exam Narrative Seen and examined. Patient was admitted with acute shortness of breath. Troponins elevated. She also has history of chronic A-fib heart failure. Currently patient does not have chest pain or shortness of breath. color television console monitor shows A-fib. Physical exam General: Alert, Oriented x3, Cooperative HEENT: Atraumatic, PERRLA, EOMI, Normocephalic Oral: Oral mucosa moist. No Gingival or Mucosal Lesions/ Ulcerations Neck: Supple, No JVD, Negative Carotid Bruits Lungs: Air entry diminished in bilateral lung bases. No crepitation/rhonchi Cardiovascular: A-fib, Normal S1, Normal S2, No murmurs Abdomen: Bowel Sounds Present, Soft, Non Tender, Non-Distended : No renal angle tenderness. No suprapubic tenderness. Extremities: No edema, Capillary Refill Less than 3 Seconds Skin: No rashes, No breakdown Musculoskeletal: No Tenderness to Palpation of Joints or Extremities. Range of motion intact. Neurological: Cranial nerves II-XII grossly intact, DTR 2+/4 and Symmetrical, Neuro grossly intact Psych/Mental Status: Normal Affect, Appropriate. Assessment & Plan Assessment/Plan (1) Acute respiratory failure with hypoxia: PLAN: Plan 1. [id number] was evaluated by pipeline construction inspector. Patient had cardiac cath. LAD tubular 40% mid lesion. Circumflex luminal 20% proximal, ramus 50%. Conclusion mild nonobstructive coronary artery disease medical therapy recommended. 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 Patient on room air pulse ox 93%. Normotensive. Mild hypokalemia potassium replaced. Creatinine normal. 2D echo reported EF 40%, mild to moderate global RV systolic dysfunction, LA severely enlarged RA moderately enlarged mild MR, moderate TR mild AI. #3 chronic A-fib with RVR: Patient on Eliquis. Hold tonight's dose as patient had cardiac catheter today. Rate is controlled.. Blood pressure is controlled. #4 essential hypertension-patient her current medications #5 hyperlipidemia-patient is on a statin Laboratory Results 12/02/22 06:40: Hemoglobin A1c 5.8 H 12/02/22 06:40: Sodium 135 L, Potassium 3.4 L, Chloride 102, Carbon Dioxide 27.0, Anion Gap 6, BUN 15, Creatinine 0.80, Estim Creat Clear Calc 62.24, Est GFR (MDRD) Af Amer 90, Est GFR (MDRD) Non-Af 74, BUN/Creatinine Ratio 18.7, Glucose 123 H, Calcium 9.2 Charges/Coding Visit Charges Inpatient E&M: 06717 Subs Hosp L2
[2022-12-02 07:49] LABS: Hemoglobin A1c 5.8 % (3.8-5.6)
[2022-12-02] MEDS: Potassium Chloride Oral Tablet 20 MEQ 40 MEQ PO ×2 (09:22→16:44)
--- NOTE | 2022-12-02 10:15 | CASEMGMT ---
RN CM Face to Face with patient for initial transition planning/care coordination assessment. RN CM introduced self and role at [facility]. Patient lying in bed, alert and oriented, daughters at bedside. Patient willing to participate in assessment and is able to answer all questions appropriately. Care providers, pharmacy, and demographics verified. Patient wishes to discharge home, denies need for home health at this time. Patient states she has no further needs or concerns at this time. CM to follow for discharge planning needs that may arise. PCP: Mane Lugo Specialists: Sabino, venetian blind machine operator Preferred Pharmacy: [facility] Insurance: TODD Najera Prescription Benefit: yes Living Will/HPOA: none LNOK: Daughters Living Arrangements: Patient lives with daughter in a single story home with ramp to enter. Patient states she is independent at home. Transportation: self, daughter DME/HHC: Thomas has shower chair, raised toilet, grab bars, walker at home. Will monitor for home oxygen, patient would like [employer]. No prevoius HHC or SNF. Disposition Plan: Patient to discharge home with family support and follow-up plans in place. Unique KINGSTON, RN, CM
--- NOTE | 2022-12-02 11:10 | NURSING ---
This RN called and gave report to FAINA Donovan at lab aide.
--- NOTE | 2022-12-02 12:31 | CL.D_ITS ---
Patient Name: LACI REDDING Study Date: 12/02/2022 Performing: Swetha Gallo MD Ht: 68 inches 172.72 cm : 1950 Wt: 241.85 lbs 109.7 kg Age: 72 Gender: female BSA: 2.22 PROCEDURE(S) PERFORMED [id number]-([id number])[facility] CLINICAL PROFILE AND INDICATIONS Indications: ACS > 24 hrs, Cardiomyopathy Heart Failure: None Angina Classification Anginal Classification w/in 2 Weeks: No symptoms CAD Presentations: Non-STEMI. Symptom onset Date/Time: Time Not Available CONCLUSIONS Mild non-obstructive CAD RECOMMENDATIONS Risk factor modification Medical therapy DESCRIPTION OF PROCEDURE The patient arrived to the procedure lab. The risks and benefits of the procedure as well as a full description of our services here and current unavailability of surgical backup were fully explained to the patient and/or their significant other prior to the catheterization. The Timeout was completed, verifying the correct patient and procedure. The patient's procedural site was prepped and draped in the usual fashion. Local anesthetic was given subcutaneously to right radial region with Lidocaine 2%. Using a modified Seldinger technique, Left Coronary Artery selective angiography was performed in multiple views using a 5 Fr. 4.0 [place] catheter. Right Coronary Artery selective angiography was then performed in multiple views using a 5 Fr. 4.0 [place] catheter.The arterial sheath was pulled and a TR Band was applied for hemostasis. 8cc air inserted. CORONARY ANGIOGRAPHY DOMINANCE: Right Dominant LEFT ANTERIOR DESCENDING ARTERY: LAD: Tubular 40% Mid lesion in LAD CIRCUMFLEX ARTERY: CIRCUMFLEX: Luminal Irregularities 20% Proximal lesion in Circumflex RAMUS: Tubular 50% Proximal lesion in Ramus COMPLICATIONS No Complications PROCEDURE MEDICATIONS Fentanyl 50 mcg IV Versed 1 mg IV Oxygen: 2 L/min via nasal cannula Heparin given IA 12/02/2022 12:10:36 Verapamil 2.5mg, Ntg 200mcgs, 2000 units of Heparin given IA 12/02/2022 12:10:36 SUMMARY OF HEMODYNAMIC DATA Time AIR REST ECG 11:38:56 AO 123/81 (98) SA 12:14:38 AIR REST 12:30:20 Signed By Swetha Gallo MD On 12/02/2022 12:31:08 Swetha Gallo MD
[2022-12-02] MEDS: Spironolactone 25 MG Tablet 12.5 MG PO (13:27)
[2022-12-02] MEDS: Empagliflozin 10 MG Tablet PO (13:28)
--- NOTE | 2022-12-02 16:20 | CHAPLAIN ---
Type of Pastoral Visit _x__ Initial Visit ___ Follow-up Visit ___ On-call Visit ___ General Patient Visit ___ Spiritual Assessment ___ Family Conference ___ Bereavement ___ Rapid Response ___ Code Blue ___ Other (describe below) Pastoral Care Referral From _x__ Patient _x__ Family ___ Nurse ___ Physician ___ Accounting Advisory Services Manager ___ Cigarette Making Machine Catcher ___ Other (describe below) Sacrament/Intervention ___ Active listening ___ Anointing ___ Islam ___ Bereavement ___ Communion ___ Macy exploration ___ ___ Life review _x__ Prayer ___ Reconciliation ___ Sacrament of Sick _x__ Supportive presence ___ Wedding ___ Other (describe below) Pastoral Comments patient was in the Potato [employer] at time of visit but two daughters were in the room; daughters state that pt was anxious and that prayer would be welcomed for her as she is in procedure now; offer of support for family and for pt in the future given
[2022-12-02] MEDS: APIXABAN 5 MG TABLET PO (21:44)
[2022-12-02] MEDS: Atorvastatin Calcium 80 MG Tablet PO (21:45)
[2022-12-03 04:00] VITALS: BP 132/78; PULSE 76; RESP 18; TEMP 36.5; O2SAT 97; BMI 36.6
[2022-12-03 07:48] VITALS: O2SAT 96
[2022-12-03 08:29] VITALS: BP 140/84; PULSE 99; RESP 18; TEMP 36.6; O2SAT 97
[2022-12-03 08:33] VITALS: BP 140/84; PULSE 99
[2022-12-03] MEDS: Metoprolol(XL)Succ 100 MG Tablet 200 MG PO (08:33)
[2022-12-03] MEDS: Empagliflozin 10 MG Tablet PO (08:33)
[2022-12-03] MEDS: Aspirin E.C. 81 MG Tablet PO (08:33)
[2022-12-03] MEDS: dilTIAZem CD 120 MG Capsule PO (08:34)
[2022-12-03] MEDS: Furosemide 40 MG Tablet PO (08:34)
[2022-12-03] MEDS: APIXABAN 5 MG TABLET PO (08:34)
[2022-12-03] MEDS: Spironolactone 25 MG Tablet 12.5 MG PO (08:34)
--- NOTE | 2022-12-03 09:25 | DCINST_ITS ---
Discharge Instructions Diet Discharge Diet: Low fat / Low cholesterol, 8 Cup Fluid Restriction and 2000 mg Sodium Diet Activity Discharge Activity: Return to Normal Activity Weight Bearing Status: Weight bearing as tolerated Dressing / Incision Call your doctor if you observe: Fever of 101 or Higher, Coldness, Increased Pain, Numbness or Tingling, Change in Color, Inability to urinate, Inability to have a bowel movement, Using more than 1 pad per hour, Shortness of breath, Dizziness, Fainting spells, Swelling in the ankles, Chest pain, Prolonged hiccupping, Increased palpitations (irregular heartbeat) and Calf discomfort Follow Up Care When: IN 2 WEEKS Test Results: Test results from this visit will be discussed in further detail at your follow- up appointment, if applicable. Discharge Plan Admission Admit Date/Time: 11/30/22 20:32 Primary Reason for Your Visit: NSTEMI, CHF exa Attending Provider: Devon Burleson Primary Care Provider: Mane Lugo Consulting Providers: Ashok Larson ; Autumn Villarreal ; Jerry Zelaya Discharge Orders/Prescriptions Prescriptions: New Eliquis 5 mg Tablet 5 mg PO BID 30 Days Qty: 60 2RF atorvastatin 80 mg Tablet 80 mg PO QHS 30 Days Qty: 30 2RF aspirin 81 mg Tablet,Delayed Release (Dr/Ec) 81 mg PO BREAKFAST 30 Days Qty: 30 2RF Jardiance 10 mg Tablet 10 mg PO DAILY 30 Days Qty: 30 2RF furosemide 40 mg Tablet 40 mg PO DAILY 30 Days Qty: 30 2RF metoprolol succinate 100 mg Tablet Extended Release 24 Hr 200 mg PO DAILY 30 Days Qty: 60 2RF Rx Instructions: Hold for heart less than 50 or systolic blood pressure less than 100 mmHg. spironolactone 25 mg Tablet 25 mg PO DAILY 30 Days Qty: 30 1RF Rx Instructions: Hold if potassium more than 5.0 Continued losartan 100 mg tablet 100 mg PO QDAY Qty: 90 1RF diltiazem HCl [Cardizem CD] 120 mg capsule,extended release 24hr 120 mg PO DAILY Referrals / Follow Up: Swetha Gallo MD [Med Staff - Active Staff] - Within 2 Weeks Mane Lugo DO [Primary Care Provider] - In 1 Week Disposition Disposition (needs filled in before D/C Order can be placed): Home, Self Care
[2022-12-03 09:31] VITALS: BP 134/63; PULSE 94; RESP 18; TEMP 36.4; O2SAT 93
--- NOTE | 2022-12-03 10:31 | PCM.DC.SUM ---
Providers Date of Admission: 11/30/22 Date of Discharge: 12/03/22 Primary Care Physician: Dr. Mane Lugo, DO Consultations 11/30/22 20:52 Consult: Cardiology Routine Consulting Provider: Ashok Larson Reason for Consult: NSTEMI EMERGENT Consult: No MD Notified: Yes Date Notified: 11/30/22 Time Notified: 20:37 Method of Notification: Text Reason For Visit: ACUTE HYPOXIC RESPIRATORY FAILURE/NSTEMI,AFIB Diagnosis Discharge Diagnosis (1) Acute respiratory failure with hypoxia: Status: Acute Code(s): J96.01 - Acute respiratory failure with hypoxia Plan This 72-year-old female admitted with acute shortness of breath from [facility] ED. Patient was recently diagnosed A-fib with RVR about a month ago and follows Dr. Smith. Patient on Cardizem CD, metoprolol XL 100 mg daily and losartan at home although was prescribed Xarelto also. 1. [id number] patient was admitted in PCU. Found to have non-STEMI with increased troponins.Twelve-lead EKG shows A-fib with mild T flattening in lateral leads but not remarkable for acute ischemia. Patient was evaluated by vp cardiovascular service line. Patient had cardiac cath. LAD tubular 40% mid lesion. Circumflex luminal 20% proximal, ramus 50%. Conclusion mild nonobstructive coronary artery disease medical therapy recommended. 5/2: Patient is discharged on aspirin, metoprolol XL 200 mg, high intensity statin, losartan and Eliquis. 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 Patient on room air pulse ox 93%. Normotensive. Mild hypokalemia potassium replaced. Creatinine normal. 2D echo reported EF 40%, mild to moderate global RV systolic dysfunction, LA severely enlarged RA moderately enlarged mild MR, moderate TR mild AI. 5/2: The patient is discharged on furosemide, spironolactone, and Jardiance. Advised to repeat BMP in 1 week and follow-up with PCP #3 chronic A-fib with RVR: Patient on Eliquis. Hold tonight's dose as patient had cardiac catheter today. Rate is controlled.. Blood pressure is controlled. #4 essential hypertension-patient her current medications #5 hyperlipidemia-patient is on a statin Medications at Discharge Home Medications losartan 100 mg tablet 100 mg PO QDAY #90 tabs 10/31/22 diltiazem HCl 120 mg capsule,extended release 24 hr (Cardizem CD) 120 mg PO DAILY heart rate 11/30/22 apixaban 5 mg tablet (Eliquis) 5 mg PO BID 30 days #60 tabs 12/03/22 aspirin 81 mg tablet,delayed release 81 mg PO BREAKFAST 30 days #30 tabs 12/03/22 atorvastatin 80 mg tablet 80 mg PO QHS 30 days #30 tabs 12/03/22 empagliflozin 10 mg tablet (Jardiance) 10 mg PO DAILY 30 days #30 tabs 12/03/22 furosemide 40 mg tablet 40 mg PO DAILY 30 days #30 tabs 12/03/22 metoprolol succinate 100 mg tablet,extended release 24 hr 200 mg PO DAILY 30 days #60 tabs 12/03/22 spironolactone 25 mg tablet 25 mg PO DAILY 30 days #30 tabs 12/03/22 Physical Exam Narrative Seen and examined. Shortness of breath is much improved. She also has history of chronic A-fib and biventricular heart failure. monitoring engineer shows A-fib, rate controlled. Physical exam General: Alert, Oriented x3, Cooperative HEENT: Atraumatic, PERRLA, EOMI, Normocephalic Oral: Oral mucosa moist. No Gingival or Mucosal Lesions/ Ulcerations Neck: Supple, No JVD, Negative Carotid Bruits Lungs: Air entry diminished in bilateral lung bases. No crepitation/rhonchi Cardiovascular: A-fib, Normal S1, Normal S2, systolic murmur LLSB and cardiac apex. Abdomen: Bowel Sounds Present, Soft, Non Tender, Non-Distended : No renal angle tenderness. No suprapubic tenderness. Extremities: Peripheral leg edema is improved, Capillary Refill Less than 3 Seconds Skin: No rashes, No breakdown Musculoskeletal: No Tenderness to Palpation of Joints or Extremities. Range of motion intact. Neurological: Cranial nerves II-XII grossly intact, DTR 2+/4 and Symmetrical, Neuro grossly intact Psych/Mental Status: Normal Affect, Appropriate. Weight / BMI Weight Weight: 241 lb 2.971 oz Body Mass Index (BMI) 36.6 ABG / Lab / Microbiology Data Result Diagrams: 12/01/22 02:37 12/02/22 06:40 Radiography Diagnostic Testing: Radiology Impression Echocardiogram 12/01/22 05:55 Interpretation Summary Moderate concentric left ventricular hypertrophy. Moderate global left ventricular systolic dysfunction. The left ventricular ejection fraction is 40 %. Mild to moderate global right ventricular systolic dysfunction. The left atrium is severely enlarged. The right atrium is moderately enlarged. Mild mitral annular calcification. Mild (1+) mitral valve insufficiency. Moderate (2+) tricuspid valve insufficiency. Aortic sclerosis, no stenosis. Mild (1+) aortic valve insufficiency. Ordering Physician: Autumn Villarreal Referring Physician: Epi Lugo M.D. Performed By: Dino Devries RCS Meaningful Use Info Meaningful Use Diagnoses (Choose all that apply): AMI and CHF AMI/Post PCI/Angioplasty Aspirin given w/in 24hrs of arrival?: Yes ASA at discharge?: Yes Statins at discharge?: Yes Shaka/ARB at discharge?: Yes Beta Andrew at discharge?: Yes Done w/ Acute NC measure.: Yes CHF SHAKA/ARB ordered at discharge?: Yes Documented LVEF (%): 40 Discharge Plan Admission Admit Date/Time: 11/30/22 20:32 Primary Reason for Your Visit: NSTEMI, CHF exa Attending Provider: Devon Burleson Primary Care Provider: Mane Lugo Consulting Providers: Ashok Larson ; Autumn Villarreal ; Jerry Zelaya Discharge Orders/Prescriptions Prescriptions: New Eliquis 5 mg Tablet 5 mg PO BID 30 Days Qty: 60 2RF atorvastatin 80 mg Tablet 80 mg PO QHS 30 Days Qty: 30 2RF aspirin 81 mg Tablet,Delayed Release (Dr/Ec) 81 mg PO BREAKFAST 30 Days Qty: 30 2RF Jardiance 10 mg Tablet 10 mg PO DAILY 30 Days Qty: 30 2RF furosemide 40 mg Tablet 40 mg PO DAILY 30 Days Qty: 30 2RF metoprolol succinate 100 mg Tablet Extended Release 24 Hr 200 mg PO DAILY 30 Days Qty: 60 2RF Rx Instructions: Hold for heart less than 50 or systolic blood pressure less than 100 mmHg. spironolactone 25 mg Tablet 25 mg PO DAILY 30 Days Qty: 30 1RF Rx Instructions: Hold if potassium more than 5.0 Continued losartan 100 mg tablet 100 mg PO QDAY Qty: 90 1RF diltiazem HCl [Cardizem CD] 120 mg capsule,extended release 24hr 120 mg PO DAILY Referrals / Follow Up: Swetha Gallo MD [Med Staff - Active Staff] - Within 2 Weeks Mane Lugo DO [Primary Care Provider] - In 1 Week Disposition Disposition (needs filled in before D/C Order can be placed): Home, Self Care Charges/Coding Visit Charges Inpatient E&M: 46134 Disch Hosp >30min
[2022-12-03 10:45] VITALS: O2SAT 97; O2SAT 99
--- NOTE | 2022-12-03 10:45 | CASEMGMT ---
RN CM called [facility] to verify cost for Jardiance and Eliquis. Per [facility] $0 cost for both medications. RN CM in to patient's room to discuss needs at discharge. Patient denied needs at discharge. Patient and daughter had no further questions or concerns at this time.
--- NOTE | 2022-12-03 11:40 | PHA.DC.MC ---
Pharmacy Service has performed discharge medication reconciliation and counseling for this patient. 1. APIXABAN 5MG PO BID 2. ASPIRIN 81MG PO BREAKFAST 3. FUROSEMIDE 40MG PO DAILY 4. SPIRONOLACTONE 25MG PO DAILY 5. EMPAGLIFLOZIN 10MG PO DAILY The patient's discharge medication list was reviewed for discrepancies and discrepancies were resolved. Home Medications losartan 100 mg tablet 100 mg PO QDAY #90 tabs 10/31/22 diltiazem HCl 120 mg capsule,extended release 24 hr (Cardizem CD) 120 mg PO DAILY heart rate 11/30/22 apixaban 5 mg tablet (Eliquis) 5 mg PO BID 30 days #60 tabs 12/03/22 aspirin 81 mg tablet,delayed release 81 mg PO BREAKFAST 30 days #30 tabs 12/03/22 atorvastatin 80 mg tablet 80 mg PO QHS 30 days #30 tabs 12/03/22 empagliflozin 10 mg tablet (Jardiance) 10 mg PO DAILY 30 days #30 tabs 12/03/22 furosemide 40 mg tablet 40 mg PO DAILY 30 days #30 tabs 12/03/22 metoprolol succinate 100 mg tablet,extended release 24 hr 200 mg PO DAILY 30 days #60 tabs 12/03/22 spironolactone 25 mg tablet 25 mg PO DAILY 30 days #30 tabs 12/03/22 The patient was counseled on the following discharge medications and changes in medications for homegoing were reviewed. The Reason for Use, instructions for use, and potential side effects were reviewed for all new medications. The patient's questions regarding all of their medications were answered. The patient was able to verbally demonstrate an understanding of their discharge medications.
== END 2022-12-03 11:48 | disposition home or self-care (01) | DRG 280 ==
PROVIDERS: Hospitalist; Admitting Provider Internal Medicine; PCP Family Medicine; Visit Provider Internal Medicine
DX: I21.4 Non-ST elevation (NSTEMI) myocardial infarction (principal); J96.01 Acute respiratory failure with hypoxia; I50.43 Acute on chronic combined systolic (congestive) and diastolic (congestive) heart failure; I48.20 Chronic atrial fibrillation, unspecified; I42.9 Cardiomyopathy, unspecified; I11.0 Hypertensive heart disease with heart failure; E78.00 Pure hypercholesterolemia, unspecified; I25.10 Atherosclerotic heart disease of native coronary artery without angina pectoris; E87.6 Hypokalemia; H81.10 Benign paroxysmal vertigo, unspecified ear; Z91.199 Patient's noncompliance with other medical treatment and regimen due to unspecified reason; Z79.899 Other long term (current) drug therapy
CPT/HCPCS: 36415; 71275; 80048; 80053; 80061; 83036; 83735; 83880; 84100; 84443; 84484; 85025; 85730; 93005; 93306; 93454; 94640; 99152; 99153; 99252; J7030; Q9967; A4216; C1769; C1894; G0463; J1940

== ENCOUNTER → 2023-07-02 | Outpatient (CLI) | payer MEDICARE, MEDICAID, SELFPAY ==
[2023-07-02 11:29] LABS: Mucous, Urine 0 SEEN /hpf (<or=2+)
[2023-07-02 12:37] LABS: Color, Urine Yellow (Yellow); Glucose, Dipstick Normal (Normal); Ketone-Dipstick Negative (Negative); Leukocyte Esterase-Dipstick 500 /ul (Negative); Nitrite-Dipstick Negative (Negative); Occult Blood-Urine 25 /ul (Negative); Protein-Dipstick 15 mg/dl (Negative); Specific Gravity, Urine 1.015 (1.002-1.030); Urine Bilirubin Dipstick Negative (Negative); Urine Clarity Sl. Cloudy (Clear); Urine Urobilinogen Normal (Normal)
[2023-07-02 12:54] LABS: Bacteria 1+ /hpf (None Seen); Red Blood Cells-Urine 0-5 SEEN /hpf (0-5); Squamous Epithelial Cells - UA 0-5 SEEN /hpf (5-10); White Blood Cells 25-50 SEEN /hpf (0-5)
== END | disposition home or self-care (01) ==
LOC: LABSPEC 11:10
PROVIDERS: PCP Family Medicine; Referring Provider Family Medicine; Visit Provider Family Medicine
DX: R41.3 Other amnesia (principal)
CPT/HCPCS: 81001

== ENCOUNTER → 2024-03-31 | Outpatient (CLI) | payer MEDICARE, MEDICAID, SELFPAY ==
[2024-03-31 17:40] LABS: AST(SGOT) 13 U/L (15-37); Alanine Aminotransfer ALT/SGPT 12 U/L (13-56); Albumin, Serum 3.8 g/dL (3.2-5.0); Alkaline Phosphatase 131 U/L (45-117); Anion Gap 8 (5-15); BUN 28 mg/dL (7-18); BUN/Creat Ratio 14.1 RATIO (10-20); Calcium,Total 9.3 mg/dL (8.5-10.1); Chloride 107 mmol/L (98-107); Cholesterol 112 mg/dL (200); Creatinine, Serum 1.98 mg/dL (0.55-1.02); EST Glomerular Filtration Rate 26 mL/min (>60); Est Glom Filt Rate - Afr Amer 32 mL/min (>60); Globulin 3.7 g/dL (2.2-4.2); Glucose 121 mg/dL (74-106); High Density Lipoprotein 42 mg/dL; Potassium 4.9 mmol/L (3.5-5.1); Protein, Total 7.5 g/dL (6.4-8.2); Sodium Level 137 mmol/L (136-145); Triglycerides 86 mg/dL; Very Low Density Lipoprotein 17 mg/dL (5-40)
== END | disposition home or self-care (01) ==
PROVIDERS: PCP Family Medicine; Referring Provider Family Medicine; Visit Provider Family Medicine
DX: I48.91 Unspecified atrial fibrillation (principal); E78.5 Hyperlipidemia, unspecified
CPT/HCPCS: 36415; 80053; 80061

== ENCOUNTER → 2024-06-23 | Outpatient (CLI) | payer MEDICARE, MEDICAID, SELFPAY ==
[2024-06-23 12:41] LABS: Absolute Lymphocyte Count 1.07 X10^3/uL (0.83-4.51); Absolute Neutrophil Count 8.1 X10^3/uL (2.0-7.7); Basophil# 0.04 X10^3/uL; Basophil% 0.4 % (0-1); Eosinophil# 0.09 X10^3/uL; Eosinophils% 0.9 % (0-5); Hematocrit 28.4 % (37-47); Hemoglobin 8.7 g/dL (12.0-15.0); Lymphocyte # 1.07 X10^3/ul (0.83-4.51); Lymphocyte % 10.8 % (19-41); Mean Corp Hgb Conc 30.6 g/dL (32-36); Mean Corpuscular Hgb 25.4 pg (27.0-32.0); Mean Platelet Vol. 10.3 fl (6.2-12.0); Monocyte# 0.49 X10^3/uL; Monocyte% 4.9 % (0-10); NRBC Flagged by Analyzer 0 % (0-5); Neutrophil # 8.14 X10^3/uL (2.7-7.7); Neutrophil % 82.3 % (47-70); Platelet Count 399 K/mm3 (150-450); RBC Distribution Width CV 13.7 % (11.6-14.6); RBC Distribution Width SD 41.8 fl (35.1-43.9); Red Blood Count 3.42 M/mm3 (4.2-5.4); White Blood Count 9.9 K/mm3 (4.4-11.0)
[2024-06-24 11:06] LABS: Anion Gap 10 (5-15); BUN 22 mg/dL (7-18); BUN/Creat Ratio 12.6 RATIO (10-20); Calcium,Total 9.2 mg/dL (8.5-10.1); Chloride 96 mmol/L (98-107); Creatinine, Serum 1.74 mg/dL (0.55-1.02); EST Glomerular Filtration Rate 30 mL/min (>60); Est Glom Filt Rate - Afr Amer 37 mL/min (>60); Glucose 152 mg/dL (74-106); Potassium 3.9 mmol/L (3.5-5.1); Sodium Level 129 mmol/L (136-145)
== END | disposition home or self-care (01) ==
LOC: BIMLAB 11:48
PROVIDERS: PCP Family Medicine; Referring Provider Family Medicine; Visit Provider Family Medicine
DX: I10 Essential (primary) hypertension (principal); R42 Dizziness and giddiness
CPT/HCPCS: 36415; 80048; 85025

== ENCOUNTER 2024-08-31 13:35 | Inpatient (IN) | payer MEDICARE, MEDICAID, SELFPAY ==
[2024-08-31] VITALS (9 sets, daily range): BP systolic 134–189; BP diastolic 52–105; PULSE 55–64; RESP 14–25; TEMP 36.8–37.1; O2SAT 93–100; BMI 32.5; BMI 32.8
--- NOTE | 2024-08-31 15:06 | EKG12_ITS ---
Test Reason : DIZZINESS Blood Pressure : */* mmHG Vent. Rate : 55 BPM Atrial Rate : 55 BPM P-R Int : 178 ms QRS Dur : 102 ms QT Int : 444 ms P-R-T Axes : 49 20 42 degrees QTcB Int : 424 ms Sinus bradycardia Nonspecific ST and T wave abnormality Abnormal ECG Confirmed by DEE PEARL, BREANNA ([id number]), photograph editor HARMONY MONTEMAYOR ([id number]) on 09/02/2024 6:37:49 AM Referred By: Confirmed By: BREANNA PRICE MD
--- NOTE | 2024-08-31 15:06 | CT_ITS ---
PROCEDURE: BRAIN/HEAD WITHOUT CONTRAST REASON FOR EXAM: Dizziness. Hypertension. TECHNIQUE: Contiguous axial scans of 3.75 mm slice thicknesses without intravenous contrast. Coronal and sagitt al reconstruction images were also obtained. IV CONTRAST: Not given. COMPARISON: No relevant prior. FINDINGS: An area of hypoattenuation in the right temporo-occipital region. No mass effect or midline shift. The ventricles are normal in size. No extra-axial fluid collections. Cerebellum is unremarkable. No other abnormalities in the posterior fossa. Mild senescent change. No vascular abnormalities. Paranasal sinuses unremarkable. Unremarkable calvariu m. Leftward deviation of the nasal septum. CT/Brain/Head without Contrast IMPRESSION: Right temporo-occipital nonhemorrhagic infarction. Mild senescent change. One or more dose reduction techniques were used (e.g., Automated exposure contr ol, adjustment of the mA and/or kV according to patient size, use of iterative reconstruction technique). Reading Location: [facility]
--- NOTE | 2024-08-31 15:23 | EX.ED.DYSGE1 ---
HPI History of Present Illness Chief Complaint: Dizziness Narrative Narrative: Patient is a 74-year-old female with a past medical history of CHF, CAD, atrial fibrillation on Eliquis, benign paroxysmal positional vertigo, hypertension, hypercholesteremia who presented to the emergency department from her family physician's office with a concern for low hemoglobin. According to family bedside they were at her primary care physician's office and had some blood work obtained and they noted that her hemoglobin was 7.8 therefore they advised them to come here for further evaluation management and potential transfusion. Patient is also complaining of dizziness as noted in the triage note but this has been going on for years patient states this is not new [facility] Medical History Memory loss, short term Chronic systolic (congestive) heart failure Coronary artery disease Nonrheumatic aortic (valve) insufficiency Non-rheumatic tricuspid valve insufficiency Non-rheumatic mitral regurgitation History of left heart catheterization (LHC) (~12/02/22) Medical non-compliance Non-smoker Thyroid nodule Essential hypertension Hyperlipidemia Near syncope Dizziness Gait disturbance Confusion Atrial fibrillation BPPV (benign paroxysmal positional vertigo) Nevus Intermittent palpitations High cholesterol Hypertension Home Medications ?Medication ?Instructions ?Recorded ?Last Taken ?Type aspirin 81 mg tablet,delayed 81 mg PO BREAKFAST 30 days #30 tabs 12/03/22 Unknown Rx release apixaban 5 mg tablet (Eliquis) 5 mg PO BID #180 tabs 04/23/23 Unknown Rx atorvastatin 80 mg tablet 80 mg PO QHS #90 tabs 04/23/23 Unknown Rx diltiazem HCl 120 mg 120 mg PO BID heart rate #180 caps 04/23/23 Unknown Rx capsule,extended release 24 hr (Cardizem CD) furosemide 40 mg tablet 40 mg PO DAILY #90 tabs 04/23/23 Unknown Rx losartan 100 mg tablet 100 mg PO QDAY #90 tabs 04/23/23 Unknown Rx donepezil 5 mg tablet (Aricept) 5 mg PO DAILY #30 tabs 04/24/23 Unknown Rx meclizine 50 mg tablet (Antivert) 50 mg PO BID PRN dizziness #30 tabs 07/24/23 Unknown Rx ferrous sulfate 325 mg (65 mg 325 mg PO BID #100 tabs 08/31/24 Unknown Rx iron) tablet Allergy/AdvReac Type Severity Reaction Status Date / Time No Known Allergies Allergy Verified 08/31/24 13:36 Family History Father Hypertension High cholesterol Brother Parkinson disease Sister Seizures Sister Seizures Surgical History History of cholecystectomy History of D&C History of foot surgery History of appendectomy History of hysterectomy Social History household members: family housing: house Smoking Status: Never smoker alcohol intake: never substance use type: does not use caffeine: Yes Type: carbonated beverages and tea Number of servings: 1 what type of physical activity do you participate in: none ROS ROS ED ROS Narrative Constitutional: Complains of dizziness as noted above denies any fevers or chills Eyes: Denies change in vision double vision blurry vision Cardiovascular: Denies chest pain or palpitations Respiratory: Denies coughing wheezing shortness of breath Abdomen: Denies abdominal pain nausea vomit diarrhea, denies black stools tarry stools, blood in her stool : Denies any urinary symptoms Neurological: Denies any numbness, weakness, tingling Musculoskeletal: Denies back pain Skin: Denies any rashes or lesions EXAM Physical Exam Narrative Exam Narrative: General: Patient lying in bed rest comfortably did not appear to be in acute distress Head: Atraumatic, normocephalic Eyes: PERRL bilaterally, EOMI bilaterally, no conjunctival injection noted Neck: Soft, supple, trachea midline Cardiovascular: Regular rate and rhythm no murmurs gallops rubs noted Respiratory: Clear to auscultation bilaterally no rales rhonchi or wheezes noted Abdomen: Soft, nondistended, no tenderness to palpation, bowel sounds present x 4 Extremities: +5/5 strength noted in the bilateral upper and lower extremities, radial pulses +2/4 in the bilateral extremities, no pedal edema on exam Neurological: Patient following commands knew that she was at [facility] year is 2024 Skin: Warm, dry, intact no rashes or lesions noted Const Vital Signs: 08/31/24 13:36 08/31/24 15:06 08/31/24 15:35 Temperature 98.7 F Temperature Source Oral Pulse Rate 64 55 L Respiratory Rate 18 14 Blood Pressure 134/78 H 154/105 H Blood Pressure Mean 96 121 Pulse Ox 98 94 Oxygen Delivery Method Room Air Room Air Room Air 08/31/24 17:00 Temperature Temperature Source Pulse Rate Respiratory Rate Blood Pressure 161/52 H Blood Pressure Mean 88 Pulse Ox Oxygen Delivery Method MDM MDM MDM Narrative Medical decision making narrative: Patient is a 74-year-old female who presents to the emergency department from her primary care physician office with a chief complaint of a hemoglobin of 7.8. On the differential diagnose includes but not limited to anemia, microcytic anemia, macrocytic anemia, electrolyte abnormality, benign paroxysmal positional vertigo. Once workup is obtained reviewed she will be reevaluated. Patient's EKG reviewed and independently turbid of myself showed sinus bradycardia with a rate of 55 bpm. Patient's CBC was reviewed and showed no evidence leukocytosis white blood count was 7.1, hemoglobin was noted to be 7.2 this was a drop from a previous blood draw on 06/23/2024 which was 8.7 then today was noted to be 7.8 and dropped down again. Patient's MCV was noted to be a microcytic anemia of 76.9. Patient sodium normal 137, potassium normal at 3.6, creatinine was 1.49 she has underlying chronic kidney disease. Patient's troponin was normal at 7. Patient TSH normal at 1.35. Patient's urinalysis pending. Patient's chest x-ray still pending as well as CT head and brain. Chest x-ray was reviewed by myself and overall showed no acute cardiopulmonary processes. I did perform rectal exam was brown stool noted however this was sent down for testing. Given the patient's CT scan chest x-ray and fecal occult as well as urinalysis are all pending did sign out the case to Dr. Dickinson to follow-up on these results. Once again the patient is on Eliquis with a significant drop in her hemoglobin. Lab Data Labs: Laboratory Results - last 24 hr 08/31/24 14:56 WBC 7.1 RBC 3.16 L Hgb 7.2 L Hct 24.3 L MCV 76.9 L MCH 22.8 L MCHC 29.6 L RDW Std Deviation 44.8 H RDW Coeff of Brianna 15.9 H Plt Count 410 MPV 10.0 Immature Gran % (Auto) 0.700 Neut % (Auto) 74.3 H Lymph % (Auto) 10.4 L [place] % (Auto) 10.3 H Eos % (Auto) 3.7 Baso % (Auto) 0.6 Absolute Neuts (auto) 5.3 Absolute Lymphs (auto) 0.74 L Nucleated RBC % 0 Sodium 137 Potassium 3.6 Chloride 104 Carbon Dioxide 23.0 Anion Gap 10 BUN 18 Creatinine 1.49 H Estim Creat Clear Calc 39.12 Est GFR (MDRD) Af Amer 44 L Est GFR (MDRD) Non-Af 36 L BUN/Creatinine Ratio 12.1 Glucose 149 H Calcium 9.0 Troponin I High Sens 7 TSH 1.350 Discharge Plan Triage Chief Complaint: Dizziness ED Provider: Eugenio Cullen Dx/Rx/DC Orders Prescriptions: No Action donepezil [Aricept] 5 mg tablet 5 mg PO DAILY Qty: 30 3RF meclizine [Antivert] 50 mg tablet 50 mg PO BID PRN (Reason: dizziness) Qty: 30 4RF ferrous sulfate 325 mg (65 mg iron) tablet 325 mg PO BID Qty: 100 4RF aspirin 81 mg Tablet,Delayed Release (Dr/Ec) 81 mg PO BREAKFAST 30 Days Qty: 30 2RF losartan 100 mg tablet 100 mg PO QDAY Qty: 90 3RF furosemide 40 mg tablet 40 mg PO DAILY Qty: 90 3RF atorvastatin 80 mg tablet 80 mg PO QHS Qty: 90 3RF Eliquis 5 mg tablet 5 mg PO BID Qty: 180 3RF diltiazem HCl [Cardizem CD] 120 mg capsule,extended release 24hr 120 mg PO BID Qty: 180 3RF Primary Care Provider: Mane Lugo Referrals: Mane Lugo, [Primary Care Provider] - Print Language: Bengali
[2024-08-31] MEDS: 0.9% Normal Saline (1000mL) 1,000 ML 999 ML IV (15:37)
[2024-08-31 16:00] LABS: Absolute Lymphocyte Count 0.74 X10^3/uL (0.83-4.51); Absolute Neutrophil Count 5.3 X10^3/uL (2.0-7.7); Basophil# 0.04 X10^3/uL; Basophil% 0.6 % (0-1); Eosinophil# 0.26 X10^3/uL; Eosinophils% 3.7 % (0-5); Hematocrit 24.3 % (37-47); Hemoglobin 7.2 g/dL (12.0-15.0); Lymphocyte # 0.74 X10^3/ul (0.83-4.51); Lymphocyte % 10.4 % (19-41); Mean Corp Hgb Conc 29.6 g/dL (32-36); Mean Corpuscular Hgb 22.8 pg (27.0-32.0); Mean Corpuscular Volume 76.9 fL (81-99); Monocyte# 0.73 X10^3/uL; Monocyte% 10.3 % (0-10); NRBC Flagged by Analyzer 0 % (0-5); Neutrophil % 74.3 % (47-70); Platelet Count 410 K/mm3 (150-450); RBC Distribution Width CV 15.9 % (11.6-14.6); RBC Distribution Width SD 44.8 fl (35.1-43.9); Red Blood Count 3.16 M/mm3 (4.2-5.4); White Blood Count 7.1 K/mm3 (4.4-11.0)
--- NOTE | 2024-08-31 16:15 | RAD_ITS ---
PROCEDURE: CHEST PA AND LATERAL REASON FOR EXAM: Chest pain. TECHNIQUE: Frontal and lateral views of the chest. COMPARISON: CTA chest from 11/30/2022. FINDINGS: Cardiac size and pulmonary vasculature are within normal limits. No consolidation, pleural effusion, or pneumothorax is present. Degenerative changes are identified. RAD/Chest PA and Lateral IMPRESSION: No acute cardiopulmonary process. Reading [facility]
[2024-08-31 16:22] LABS: Anion Gap 10 (5-15); BUN 18 mg/dL (7-18); BUN/Creat Ratio 12.1 RATIO (10-20); Chloride 104 mmol/L (98-107); Creatinine, Serum 1.49 mg/dL (0.55-1.02); EST Glomerular Filtration Rate 36 mL/min (>60); Est Glom Filt Rate - Afr Amer 44 mL/min (>60); Estimated Creatinine Clearance 39.12 ml/min; Glucose 149 mg/dL (74-106); Potassium 3.6 mmol/L (3.5-5.1); Sodium Level 137 mmol/L (136-145); Troponin-I HS 7 pg/mL (3.0-54.0)
[2024-08-31 16:46] LABS: Bacteria 0 SEEN /hpf (None Seen); Mucous, Urine 0 SEEN /hpf (<or=2+); Squamous Epithelial Cells - UA 0 SEEN /hpf (5-10)
--- NOTE | 2024-08-31 17:30 | ED.RN ---
This RN called lab about delay in hemoccult, they stated they needed 10 more minutes.
[2024-08-31 18:34] LABS: Color, Urine Yellow (Yellow); Glucose, Dipstick Normal (Normal); Ketone-Dipstick Negative (Negative); Leukocyte Esterase-Dipstick Negative /ul (Negative); Nitrite-Dipstick Negative (Negative); Occult Blood-Urine Negative /ul (Negative); Protein-Dipstick Negative (Negative); Urine Bilirubin Dipstick Negative (Negative); Urine Clarity Clear (Clear); Urine Urobilinogen Normal (Normal)
--- NOTE | 2024-08-31 18:41 | PCM.HP.STD ---
HPI - General General Date of Admission: 08/31/24 Date of Service: 08/31/24 Chief Complaint: Fatigue and dizziness, acute on chronic anemia HPI Narrative LACI REDDING, is a 74 F who presented to [facility] ED on 08/31/2024 with fatigue and dizziness and acute on chronic anemia. Patient saw her PCP earlier today and had labs that showed hemoglobin 7.8. Previous hemoglobin was 8.7 in June and around 12 back in 2022. Does not appear any anemia studies were done in June, though PCP plan to start patient on oral iron supplementation but patient never started this. Patient has chronic vertigo and states the dizziness is about at baseline but she is more fatigued than normal. She is on Eliquis for paroxysmal A-fib. Denies any dark or bloody stools. In the ED she was mildly hypertensive but otherwise hemodynamically stable on room air. Labs notable for hemoglobin 7.2, MCV 76. Stool guaiac was positive. Case was discussed with Dr. Davies who was agreeable with admission and recommended upper and lower scopes. Hospitalist was then contacted for admission. I saw the patient at bedside in the ED. Patient was mildly fatigued appearing but otherwise sitting up comfortably in bed and in no acute distress. Notably, nursing staff reported that patient had bedbugs found on her and she was placed on contact precautions. Patient was not aware that she had bedbugs. She did report feeling slightly more fatigued than normal but denied any other acute concerns currently. Her dizziness is stable at rest. Denies any fevers or chills. No other acute concerns this time. [facility] Medical History Memory loss, short term Chronic systolic (congestive) heart failure Coronary artery disease Nonrheumatic aortic (valve) insufficiency Non-rheumatic tricuspid valve insufficiency Non-rheumatic mitral regurgitation History of left heart catheterization (LHC) (~12/02/22) Medical non-compliance Non-smoker Thyroid nodule Essential hypertension Hyperlipidemia Near syncope Dizziness Gait disturbance Confusion Atrial fibrillation BPPV (benign paroxysmal positional vertigo) Nevus Intermittent palpitations High cholesterol Hypertension Home Medications ?Medication ?Instructions ?Recorded ?Last Taken ?Type aspirin 81 mg tablet,delayed 81 mg PO BREAKFAST 30 days #30 tabs 12/03/22 08/30/24 Rx release apixaban 5 mg tablet (Eliquis) 5 mg PO BID #180 tabs 04/23/23 08/30/24 Rx atorvastatin 80 mg tablet 80 mg PO QHS #90 tabs 04/23/23 08/30/24 Rx diltiazem HCl 120 mg 120 mg PO BID heart rate #180 caps 04/23/23 08/30/24 Rx capsule,extended release 24 hr (Cardizem CD) furosemide 40 mg tablet 40 mg PO DAILY #90 tabs 04/23/23 08/30/24 Rx donepezil 5 mg tablet (Aricept) 5 mg PO DAILY #30 tabs 04/24/23 08/30/24 Rx meclizine 50 mg tablet (Antivert) 50 mg PO BID PRN dizziness #30 tabs 07/24/23 Unknown Rx ferrous sulfate 325 mg (65 mg 325 mg PO BID #100 tabs 08/31/24 08/30/24 Rx iron) tablet losartan 100 mg tablet 100 mg PO DAILY 08/31/24 08/30/24 History metoprolol succinate 25 mg 25 mg PO DAILY 08/31/24 08/30/24 History tablet,extended release 24 hr Allergy/AdvReac Type Severity Reaction Status Date / Time No Known Allergies Allergy Verified 08/31/24 13:36 Family History Father Hypertension High cholesterol Brother Parkinson disease Sister Seizures Sister Seizures Surgical History History of cholecystectomy History of D&C History of foot surgery History of appendectomy History of hysterectomy Social History household members: family housing: house Smoking Status: Never smoker alcohol intake: never substance use type: does not use caffeine: Yes Type: carbonated beverages and tea Number of servings: 1 what type of physical activity do you participate in: none ROS Constitutional Constitutional: Reports fatigue; Denies chills, fever(s) or weakness Eyes Eyes: Denies change in vision Cardiovascular Cardiovascular: Denies chest pain Respiratory/Chest Respiratory/Chest: Denies shortness of breath at rest Gastrointestinal Gastrointestinal: Denies abdominal pain, constipation, diarrhea, hematochezia, loose stools, melena, nausea or vomiting Musculoskeletal Musculoskeletal: Denies arthralgias or myalgias Neurologic Neurologic: Denies dizziness, headache(s), numbness or paresthesias Vital Signs Vital Signs Vital Signs: 08/31/24 13:36 08/31/24 15:06 08/31/24 15:35 Temperature 98.7 F Temperature Source Oral Pulse Rate 64 55 L Respiratory Rate 18 14 Blood Pressure 134/78 H 154/105 H Blood Pressure Mean 96 121 Pulse Ox 98 94 Oxygen Delivery Method Room Air Room Air Room Air 08/31/24 17:00 Temperature Temperature Source Pulse Rate Respiratory Rate Blood Pressure 161/52 H Blood Pressure Mean 88 Pulse Ox Oxygen Delivery Method Weight Weight: 97 kg Body Mass Index (BMI) 32.5 Physical Exam Const alert and no apparent distress Constitutional Narrative: Elderly female, class I obesity, mildly fatigued appearing, alert and answering questions short appropriate responses, in no acute distress. General Appearance: cooperative and comfortable HEENT normocephalic, head/scalp atraumatic, hearing grossly normal bilaterally, nasal mucous membranes and turbinates normal and moist oral mucous membranes Eyes PERRL, EOMs intact bilaterally and conjunctivae normal Neck full ROM Chest inspection of chest normal Resp normal respiratory effort, normal air movement, no use of accessory muscles and clear to auscultation bilaterally Cardio regular rate, regular rhythm, no murmurs and peripheral pulses 2+ throughout GI normal to inspection, nondistended, normoactive bowel sounds, soft to palpation, non-tender and non-distended Back/Spine normal ROM Extremity normal to inspection, full ROM and no pedal edema Skin no rashes or lesions noted Neuro moves all extremities and no focal motor deficits Speech: speech normal Psych mental status grossly normal Results Lab / Micro Data 08/31/24 14:56 08/31/24 14:56 Labs: Laboratory Results - last 24 hr 08/31/24 14:56: WBC 7.1, RBC 3.16 L, Hgb 7.2 L, Hct 24.3 L, MCV 76.9 L, MCH 22.8 L, MCHC 29.6 L, RDW Std Deviation 44.8 H, RDW Coeff of Brianna 15.9 H, Plt Count 410, MPV 10.0, Immature Gran % (Auto) 0.700, Neut % (Auto) 74.3 H, Lymph % (Auto) 10.4 L, [place] % (Auto) 10.3 H, Eos % (Auto) 3.7, Baso % (Auto) 0.6, Absolute Neuts (auto) 5.3, Absolute Lymphs (auto) 0.74 L, Nucleated RBC % 0, Sodium 137, Potassium 3.6, Chloride 104, Carbon Dioxide 23.0, Anion Gap 10, BUN 18, Creatinine 1.49 H, Estim Creat Clear Calc 39.12, Est GFR (MDRD) Af Amer 44 L, Est GFR (MDRD) Non-Af 36 L, BUN/Creatinine Ratio 12.1, Glucose 149 H, Calcium 9.0, Troponin I High Sens 7, TSH 1.350 Micro: Microbiology 08/31/24 16:25 Stool Stool Occult Blood (MELISSA) - Final Occult Blood Positive Imaging Radiology Impression Brain CT 08/31/24 15:06 IMPRESSION: Right temporo-occipital nonhemorrhagic infarction. Mild senescent change. One or more dose reduction techniques were used (e.g., Automated exposure control, adjustment of the mA and/or kV according to patient size, use of iterative reconstruction technique). Reading Location: [facility] Chest X-Ray 08/31/24 16:15 IMPRESSION: No acute cardiopulmonary process. Reading Location: [facility] Assessment & Plan Assessment/Plan (1) Acute on chronic anemia: PLAN: Plan Patient is a 74-year-old female who presented [facility] ED on 08/31/2024 with fatigue with dizziness and acute on chronic anemia. 1. Acute on chronic anemia with concern for occult GI bleed ? Admit under inpatient status to PCU. GI consulted. Hemoglobin 7.2 on admit, appears to be slowly decreasing over past few months. Iron studies, B12 and folate ordered. Will keep n.p.o. with plan for upper and lower scopes tomorrow. Follow-up a.m. CBC. Given IV Protonix bolus in the ED, will start IV PPI twice daily for now. Holding home Eliquis. 2. Paroxysmal A-fib on Eliquis ? In normal sinus rhythm on admit. Holding Eliquis as above. Continue home Toprol and diltiazem. 3. History of CVA, nonobstructive CAD, HFrEF with nonischemic cardiomyopathy, hypertension, hyperlipidemia ? CT brain on admit showed right temporal occipital nonhemorrhagic infarction with mild senescent changes. On review of prior CT brain from 2022, appears this lesion was present at that time. Last echo in 2022 showed EF 40% with global LV dysfunction. Mildly hypertensive in the ED. Continue home aspirin, statin, diltiazem, losartan, Lasix and Toprol. 4. BPPV ? Suspected that dizziness on admit was due to vertigo as patient reports it is similar to her baseline. Could be mild exacerbated by worsening anemia. Continue home meclizine as needed. 5. Bedbug infestation ? Noted in the ED. Contact cautions in place. 6. Cognitive impairment ? Alert and answering questions appropriately on admit. Continue home donepezil. 7. Class I obesity ? BMI 32 on admit. Complicates hospital course, care and prognosis. DVT prophylaxis: SCDs CODE STATUS: Full code, verified Expected disposition: TBD Total clinical time spent by myself addressing the patient's medical issues, reviewing all the data, and collaborating with patient's care team: 75 minutes. Charges/Coding Visit Charges Inpatient E&M: 68290 Init Hosp L3
[2024-08-31] MEDS: Pantoprazole Sodium 80 MG in 0.9% Normal Saline (50mL Bag) 15 ML 420 MG IV BOLUS (19:00)
[2024-08-31 20:03] LABS: Red Blood Cells-Urine 0-5 SEEN /hpf (0-5); White Blood Cells 0-5 SEEN /hpf (0-5)
--- NOTE | 2024-08-31 21:33 | CON.PCM.GI_ITS ---
HPI Consult Data Date of Consult: 08/31/24 HPI Narrative Reason for Consultation: Anemia possible GI bleed HPI Narrative: LACI REDDING, is a 74 F who presented to [facility] ED on 08/31/2024 with fatigue and dizziness and acute on chronic anemia. Patient saw her PCP earlier today and had labs that showed hemoglobin 7.8. Previous hemoglobin was 8.7 in June and around 12 back in 2022. Does not appear any anemia studies were done in June, though PCP plan to start patient on oral iron supplementation but patient never started this. Patient has chronic vertigo and states the dizziness is about at baseline but she is more fatigued than normal. She is on Eliquis for paroxysmal A-fib. Denies any dark or bloody stools. In the ED she was mildly hypertensive but otherwise hemodynamically stable on room air. Labs notable for hemoglobin 7.2, MCV 76. Stool guaiac was positive. She has never had an upper or lower scope in the past. [facility] Medical History Memory loss, short term Chronic systolic (congestive) heart failure Coronary artery disease Nonrheumatic aortic (valve) insufficiency Non-rheumatic tricuspid valve insufficiency Non-rheumatic mitral regurgitation History of left heart catheterization (LHC) (~12/02/22) Medical non-compliance Non-smoker Thyroid nodule Essential hypertension Hyperlipidemia Near syncope Dizziness Gait disturbance Confusion Atrial fibrillation BPPV (benign paroxysmal positional vertigo) Nevus Intermittent palpitations High cholesterol Hypertension Home Medications ?Medication ?Instructions ?Recorded ?Last Taken ?Type apixaban 5 mg tablet (Eliquis) 5 mg PO BID #180 tabs 04/23/23 08/30/24 Rx atorvastatin 80 mg tablet 80 mg PO QHS #90 tabs 04/23/23 08/30/24 Rx donepezil 5 mg tablet (Aricept) 5 mg PO DAILY #30 tabs 04/24/23 08/30/24 Rx meclizine 50 mg tablet (Antivert) 50 mg PO BID PRN dizziness #30 tabs 07/24/23 Unknown Rx ferrous sulfate 325 mg (65 mg 325 mg PO BID #100 tabs 08/31/24 08/30/24 Rx iron) tablet losartan 100 mg tablet 100 mg PO DAILY 08/31/24 08/30/24 History metoprolol succinate 25 mg 25 mg PO DAILY 08/31/24 08/30/24 History tablet,extended release 24 hr amiodarone 200 mg tablet 200 mg PO DAILY hr 09/01/24 Unknown History spironolactone 50 mg tablet 50 mg PO DAILY hf 09/01/24 Unknown History Allergy/AdvReac Type Severity Reaction Status Date / Time No Known Allergies Allergy Verified 08/31/24 13:36 Family History Father Hypertension High cholesterol Brother Parkinson disease Sister Seizures Sister Seizures Surgical History History of cholecystectomy History of D&C History of foot surgery History of appendectomy History of hysterectomy Social History household members: family housing: house Smoking Status: Never smoker alcohol intake: never substance use type: does not use caffeine: Yes Type: carbonated beverages and tea Number of servings: 1 what type of physical activity do you participate in: none ROS Constitutional Constitutional: Reports fatigue; Denies chills, fever(s) or weakness Eyes Eyes: Denies change in vision Cardiovascular Cardiovascular: Denies chest pain Respiratory/Chest Respiratory/Chest: Denies shortness of breath at rest Gastrointestinal Gastrointestinal: Denies abdominal pain, constipation, diarrhea, hematochezia, loose stools, melena, nausea or vomiting Musculoskeletal Musculoskeletal: Denies arthralgias or myalgias Neurologic Neurologic: Denies dizziness, headache(s), numbness or paresthesias Physical Exam Narrative Seen and examined. Physical exam General: Alert, Oriented x3, Cooperative HEENT: Atraumatic, PERRLA, EOMI, Normocephalic Oral: Oral mucosa moist. No Gingival or Mucosal Lesions/ Ulcerations Neck: Supple, No JVD, Negative Carotid Bruits Lungs: Air entry diminished in bilateral lung bases. No crepitation/rhonchi Cardiovascular: A-fib, Normal S1, Normal S2, systolic murmur LLSB and cardiac apex. Abdomen: Bowel Sounds Present, Soft, Non Tender, Non-Distended : No renal angle tenderness. No suprapubic tenderness. Extremities: Peripheral leg edema is improved, Capillary Refill Less than 3 Seconds Skin: No rashes, No breakdown Musculoskeletal: No Tenderness to Palpation of Joints or Extremities. Range of motion intact. Neurological: Cranial nerves II-XII grossly intact, DTR 2+/4 and Symmetrical, Neuro grossly intact Psych/Mental Status: Normal Affect, Appropriate. Lab / Micro Data 09/01/24 05:30 09/01/24 05:30 Labs: Laboratory Results - last 24 hr 08/31/24 14:45: Blood Type A POSITIVE, Antibody Screen NEGATIVE, Crossmatch See Detail 08/31/24 14:56: WBC 7.1, RBC 3.16 L, Hgb 7.2 L, Hct 24.3 L, MCV 76.9 L, MCH 22.8 L, MCHC 29.6 L, RDW Std Deviation 44.8 H, RDW Coeff of Brianna 15.9 H, Plt Count 410, MPV 10.0, Immature Gran % (Auto) 0.700, Neut % (Auto) 74.3 H, Lymph % (Auto) 10.4 L, [place] % (Auto) 10.3 H, Eos % (Auto) 3.7, Baso % (Auto) 0.6, Absolute Neuts (auto) 5.3, Absolute Lymphs (auto) 0.74 L, Nucleated RBC % 0, Sodium 137, Potassium 3.6, Chloride 104, Carbon Dioxide 23.0, Anion Gap 10, BUN 18, Creatinine 1.49 H, Estim Creat Clear Calc 39.12, Est GFR (MDRD) Af Amer 44 L , Est GFR (MDRD) Non-Af 36 L, BUN/Creatinine Ratio 12.1, Glucose 149 H, Calcium 9.0, Iron 18 L, TIBC 373, Iron Saturation 4.8 L, Ferritin 6 L, Troponin I High Sens 7, Folate 10.60, TSH 1.350 08/31/24 16:33: Urine Color Yellow, Urine Clarity Clear, Urine pH 5.0, Ur Specific [place] 1.010, Urine Protein Negative, Urine Glucose (UA) Normal, Urine Ketones Negative, Urine Occult Blood Negative, Urine Nitrite Negative, Urine Bilirubin Negative, Urine Urobilinogen Normal, Ur Leukocyte Esterase Negative, Urine RBC 0-5 SEEN, Urine WBC 0-5 SEEN, Ur Squamous Epith Cells 0 SEEN, Urine Bacteria 0 SEEN, Urine Mucus 0 SEEN 09/01/24 05:30: WBC 6.4, RBC 2.71 L, Hgb 6.2 L, Hct 21.0 L, MCV 77.5 L, MCH 22.9 L, MCHC 29.5 L, RDW Std Deviation 45.2 H, RDW Coeff of Brianna 16.0 H, Plt Count 402, MPV 9.9, PT 15.9 H, INR 1.2, APTT 28.4, Sodium 140, Potassium 3.7, Chloride 110 H, Carbon Dioxide 21.0, Anion Gap 9, BUN 13, Creatinine 1.35 H, Estim Creat Clear Calc 41.93, Est GFR (MDRD) Af Amer 49 L, Est GFR (MDRD) Non-Af 41 L, B UN/Creatinine Ratio 9.6 L, Glucose 101, Calcium 8.5, Vitamin B12 229 Micro: Microbiology 08/31/24 16:33 Urine Catheter - Soto Urine Culture - Preliminary Culture exhibits no growth. 08/31/24 16:25 Stool Stool Occult Blood (MELISSA) - Final Occult Blood Positive Imaging Radiology Impression Brain CT 08/31/24 15:06 IMPRESSION: Right temporo-occipital nonhemorrhagic infarction. Mild senescent change. One or more dose reduction techniques were used (e.g., Automated exposure control, adjustment of the mA and/or kV according to patient size, use of iterative reconstruction technique). Reading Location: [facility] Chest X-Ray 08/31/24 16:15 IMPRESSION: No acute cardiopulmonary process. Reading Location: [facility] Assessment & Plan Assessment/Plan (1) Acute on chronic anemia: PLAN: Plan Patient is a 74-year-old female who presented [facility] ED on 08/31/2024 with fatigue with dizziness and acute on chronic anemia. Differential diagnosis for acute on chronic anemia would be occult GI malignancy, gastric antral vascular ectasia, telangiectasia, peptic ulcer disease, iron deficiency anemia secondary to celiac disease. Patient is at risk for GI bleed due to poor nutrition and administration of Eliquis. She should undergo an upper and lower endoscopy evaluate upper lower GI tract. She was explained alternatives, risk and benefits include understanding bleeding, infection, sepsis, perforation, need for emergent urgent . She have an ASA of 3. Charges/Coding Visit Charges Inpatient E&M: 60850 Init Hosp L2
[2024-08-31] MEDS: Bisacodyl 5 MG Tablet 20 MG PO (21:38)
[2024-08-31] MEDS: dilTIAZem CD 120 MG Capsule PO (21:38)
[2024-08-31] MEDS: Atorvastatin Calcium 80 MG Tablet PO (21:38)
[2024-08-31] MEDS: Pantoprazole Sodium 40 MG in 0.9% Normal Saline (100mL MB+) 100 ML 330 MG IV (21:44)
[2024-08-31] MEDS: 0.9% Saline Lock 10 ML Syringe IV (21:44)
[2024-08-31] MEDS: Polyethylene Glycol 3350 BOWEL PREP PO (22:32)
[2024-08-31 23:23] LABS: Ferritin 6 ng/mL (8-252); Iron 18 ug/dL (50-170); Iron Binding Capacity,Total 373 ug/dL (250-450); PERCENT IRON SATURATION 4.8 % (15.0-55.0)
[2024-09-01] VITALS (15 sets, daily range): BP systolic 111–157; BP diastolic 42–80; PULSE 46–79; RESP 16–18; TEMP 36.4–37.1; O2SAT 93–100; BMI 32.8
--- NOTE | 2024-09-01 05:55 | EKG12_ITS ---
Test Reason : PRE-OP Blood Pressure : */* mmHG Vent. Rate : 64 BPM Atrial Rate : 64 BPM P-R Int : 202 ms QRS Dur : 96 ms QT Int : 446 ms P-R-T Axes : 66 40 35 degrees QTcB Int : 460 ms Normal sinus rhythm Nonspecific ST and T wave abnormality Abnormal ECG When compared with ECG of 31-Aug-2024 15:30, MANUAL COMPARISON REQUIRED DATA IS UNCONFIRMED Confirmed by DEE PEARL, BREANNA ([id number]), photographic editor HARMONY MONTEMAYOR ([id number]) on 09/02/2024 6:41:43 AM Referred By: Confirmed By: BREANNA PRICE MD
[2024-09-01 06:36] LABS: Hemoglobin 6.2 g/dL (12.0-15.0); Mean Corp Hgb Conc 29.5 g/dL (32-36); Mean Corpuscular Hgb 22.9 pg (27.0-32.0); Mean Corpuscular Volume 77.5 fL (81-99); Mean Platelet Vol. 9.9 fl (6.2-12.0); Platelet Count 402 K/mm3 (150-450); RBC Distribution Width SD 45.2 fl (35.1-43.9); Red Blood Count 2.71 M/mm3 (4.2-5.4); White Blood Count 6.4 K/mm3 (4.4-11.0)
[2024-09-01 06:52] LABS: Anion Gap 9 (5-15); BUN 13 mg/dL (7-18); BUN/Creat Ratio 9.6 RATIO (10-20); Calcium,Total 8.5 mg/dL (8.5-10.1); Chloride 110 mmol/L (98-107); Creatinine, Serum 1.35 mg/dL (0.55-1.02); EST Glomerular Filtration Rate 41 mL/min (>60); Est Glom Filt Rate - Afr Amer 49 mL/min (>60); Estimated Creatinine Clearance 41.93 ml/min; Glucose 101 mg/dL (74-106); Potassium 3.7 mmol/L (3.5-5.1); Sodium Level 140 mmol/L (136-145)
[2024-09-01 07:47] LABS: Vitamin B12 229 pg/mL (211-911)
[2024-09-01 08:45] LABS: Partial Thromboplast Time 28.4 Seconds (24.1-36.2)
[2024-09-01 08:47] LABS: International Normalized Ratio 1.2; Prothrombin Time (Protime)PT. 15.9 SECONDS (11.7-14.9)
[2024-09-01] MEDS: Pantoprazole Sodium 40 MG in 0.9% Normal Saline (100mL MB+) 100 ML 330 MG IV ×2 (10:05→21:50)
[2024-09-01] MEDS: Donepezil HCl 5 MG Tablet PO (10:07)
[2024-09-01] MEDS: Metoprolol(XL)Succ 25 MG Tablet PO (10:07)
[2024-09-01] MEDS: dilTIAZem CD 120 MG Capsule PO (10:07)
[2024-09-01] MEDS: 0.9% Saline Lock 10 ML Syringe IV ×2 (10:10→21:48)
--- NOTE | 2024-09-01 11:40 | CASEMGMT ---
RN CM flame cutting machine operator CM to room to meet with patient for initial transition planning/care coordination assessment. RN CM introduced self and role at [facility]. Patient sitting up in chair in room, alert and oriented. DaughterAlexa, at bedside and pt agreeable to her being present during assessment. Patient willing to participate in assessment and is able to answer all questions appropriately. Care providers, pharmacy, and demographics verified. PCP: Dr Mane Lugo Specialists: Dr Escobar, insurance claims clerk @ [facility] Pharmacy: [facility] Pr[facility] Insurance: [facility] DUAL, [facility] Prescription Benefit: yes Living Will/HPOA: Pt does not have these. She was made aware AD can be completed as an In-patient or OP. She states she will think about it. LNOK: Daughters Ben and Alexa Living Arrangements: Patient lives with daughterBen, in a single story home with ramp to enter. Patient states she is independent with ADL's and IADL's. Dtr, Alexa, sets up monthly pill containers. Transportation: self, daughter DME: Thomas has shower chair, raised toilet, grab bars, walker (available, but does not use) at home. HHC/SNF: No prevoius HHC or SNF. Patient wishes to discharge home, denies need for home health at this time. Patient states she has no further needs or concerns at this time. CM to follow for discharge planning needs that may arise. Daria KINGSTON RN, CM
--- NOTE | 2024-09-01 13:49 | PCM.PRE.AN2 ---
ASA Classification* ASA Classification ASA Classification: 3 Assessment & Plan Anesthesia* Anesthesia Assessment Anesthesia Assessment: Discussed sedation and/or anesthesia options, risks, benefits, and alternatives with patient/parents/legal guardian/POA. Questions invited. The patient/parents/legal guardian/POA seems to understand and agrees to proceed with anesthesia plan. Reviewed the physical assessment, medical history, allergy history and patient home medications list prior to surgery/procedure/anesthetic and documented any changes. Performed airway and anesthesia risk assessments. Procedural Plan Add'l anesthesia plan details: Anemia: being transfused Anesthesia Type Anesthesia Type: MAC History Source History Obtained from:: Patient and Chart Anesthesia Focused Assessment* Temperature: 98.2 F Pulse Rate: 79 Blood Pressure: 130/68 Respiratory Rate: 18 Pulse Ox: 94 Oxygen Delivery Method: Room Air Airway Assessment Mouth opens: >3 cm Mallampati Score: II Teeth Condition: Dentures Neck Range of motion (ROM): Full ROM Focused Labs Anesthesia Preop lab: CBC WBC 6.4 K/mm3 (4.4-11.0) 09/01/24 05:30 RBC 2.71 M/mm3 (4.2-5.4) L 09/01/24 05:30 Hgb 6.2 g/dL (12.0-15.0) L 09/01/24 05:30 Hct 21.0 % (37-47) L 09/01/24 05:30 Plt Count 402 K/mm3 (150-450) 09/01/24 05:30 CHEMISTRY Potassium 3.7 mmol/L (3.5-5.1) 09/01/24 05:30 Sodium 140 mmol/L (136-145) 09/01/24 05:30 Magnesium 1.9 mg/dL (1.6-2.6) 12/01/22 02:37 Phosphorus 3.7 mg/dL (2.5-4.9) 12/01/22 02:37 BUN 13 mg/dL (7-18) 09/01/24 05:30 Creatinine 1.35 mg/dL (0.55-1.02) H 09/01/24 05:30 Glucose 101 mg/dL (74-106) 09/01/24 05:30 TSH 1.350 uIU/mL (0.358-3.740) 08/31/24 14:56 COAG PT 15.9 SECONDS (11.7-14.9) H 09/01/24 05:30 Pre-Assessment Diagnosis/Proposed Procedure Planned Operative Procedure(s): EGD/Colonoscopy Anesthesia History Anesthesia History - cyber ops planner: Anesthesia History - cyber ops planner Hx Hospitalization Any Problems With Anesthesia No 09/01/24 00:12 Cholinesterase deficiency No 09/01/24 00:12 You/Your Family Experience No 09/01/24 00:12 fever (hyperthermia) with Relationship Recent Exposure to Contagious No 09/01/24 00:12 Disease Does patient have nerve No 09/01/24 00:12 stimulator Patient instructed to have device shut off --Does patient have Pacemaker No 09/01/24 00:12 or ICD? When Was Last Pacemaker Check QUESTION #4 FULL TEXT: You/Your Family Experience fever (hyperthermia) with Anesthesia Last Oral Intake Last Oral intake: Last Oral Intake NPO since 00:00 09/01/24 00:12 Meds taken in AM with sips of No 09/01/24 00:12 water? Meds patient instructed to take am of surgery PONV PONV - cyber ops planner: PONV - cyber ops planner Female HX of Motion Sickness HX of N/V After Surgery Non-Smoker Duration of Surgery greater than 60 minutes Number of Risk Factors PONV Score Height & Weight Height & Weight: Anesthesia: Height & Weight Height 5 ft 7 in 09/01/24 12:54 Weight: 94.9 kg 09/01/24 12:54 Body Mass Index (BMI) 32.8 09/01/24 00:12 Respiratory Assessment Respiratory Assessment - cyber ops planner: Respiratory Tract Infection Hx - cyber ops planner Hx Respiratory Tract Infection No 09/01/24 00:12 STOP Sleep Apnea STOP Sleep Apnea - cyber ops planner: STOP Sleep Apnea - cyber ops planner Hx Hypertension Yes 09/01/24 12:43 Hx Sleep Apnea No 08/31/24 19:55 CPAP BIPAP Do you snore loudly (louder No 08/31/24 19:55 than talking or can be heard Do you often feel tired/ No 08/31/24 19:55 fatigued/ sleepy during daytime? Has anyone observed you stop No 08/31/24 19:55 breathing during sleep? STOP Results Negative 08/31/24 19:55 QUESTION #5 FULL TEXT : Do you snore loudly (louder than talking or can be heard through closed doors)? Tobacco Use History Tobacco Use History - cyber ops planner: Tobacco Use History - cyber ops planner Tobacco Use Smoking Status Never smoker 08/31/24 19:55 Hx Tobacco Use No 08/31/24 19:55 Years Smoking Packs Smoked per Day Smoking Cessation Date was within the last 15 years Hx Smoking Cessation Date Hx Smoking Cessation Counseling Hematologic Medial History Hematologic Hx - cyber ops planner: Hematologic Medical Hx - police officer Hx of Blood Transfusion No 08/31/24 19:55 Hx of Transfusion in last 3 No 08/31/24 19:55 Months Date of Last Transfusion (if within last 3 months) Ever experience any problems No 08/31/24 19:55 with transfusion(s)? Specify any problems Hx of Preganancy in last 3 No 08/31/24 19:55 Months Nurse Filling Out Transfusion DCORPORAL 08/31/24 19:55 & Questions: Date: 08/31/24 08/31/24 19:55 Time: 19:56 08/31/24 19:55 Patient unable to answer at this time (ie. confused, unrespo /Reproduction History /Reproductive History - cyber ops planner: /Reproductive Hx- cyber ops planner Hx Now No 09/01/24 00:12 Gestational Age (in weeks): EDC: Hx Hx Para Hx Section SAB No 09/01/24 00:12 Active Medications Active Medications: Current Medications Generic Name Dose Route Start Last Admin Trade Name Freq PRN Reason Stop Dose Admin Acetaminophen 650 mg 08/31/24 19:45 Acetaminophen 325 Mg Tablet PO Q6H PRN PRN Pain 1-10 Or Fever>100.7 Aspirin 81 mg 09/01/24 08:00 09/01/24 09:55 Aspirin E.C. 81 Mg Tablet PO Not Given BREAKFAST DON Atorvastatin Calcium 80 mg 08/31/24 22:00 08/31/24 21:38 Atorvastatin Calcium 80 Mg Tablet PO 80 mg QHS DON Administration Diltiazem HCl 120 mg 08/31/24 22:00 09/01/24 10:07 Diltiazem Cd 120 Mg Capsule PO 120 mg BID DON Administration Protocol Donepezil HCl 5 mg 09/01/24 10:00 09/01/24 10:07 Donepezil Hcl 5 Mg Tablet PO 5 mg DAILY DON Administration Furosemide 40 mg 09/01/24 10:00 09/01/24 09:55 Furosemide 40 Mg Tablet PO Not Given DAILY DON Protocol Pantoprazole Sodium 40 mg/ 110 mls @ 330 mls/hr 08/31/24 22:00 09/01/24 11:13 Sodium Chloride IV Infused Q12 DON Infusion Sodium Chloride 100 mls @ 15 mls/hr 08/31/24 19:46 IV .Q6H40M PRN Saline Flush Sodium Chloride 100 mls @ 15 mls/hr 08/31/24 19:46 IV .Q6H40M PRN Additional IVPB Infusion Meclizine HCl 50 mg 08/31/24 19:59 Meclizine Hcl 25 Mg Tablet PO BID PRN dizziness Melatonin 3 mg 08/31/24 19:45 Melatonin 3 Mg Tablet PO QHS PRN PRN INSOMNIA Metoprolol Succinate 25 mg 09/01/24 10:00 09/01/24 10:07 Metoprolol(Xl)Succ 25 Mg Tablet PO 25 mg DAILY DON Administration Protocol Ondansetron HCl 4 mg 08/31/24 19:45 Ondansetron 4 Mg/2 Ml Vial IV Q8H PRN PRN NAUSEA/VOMITING Sodium Chloride 10 - 40 ml 08/31/24 19:46 09/01/24 10:10 0.9% Saline Lock 10 Ml Syringe IV 10 ml UD PRN Administration SALINE FLUSH PFSH Medical History Memory loss, short term Chronic systolic (congestive) heart failure Coronary artery disease Nonrheumatic aortic (valve) insufficiency Non-rheumatic tricuspid valve insufficiency Non-rheumatic mitral regurgitation History of left heart catheterization (LHC) (~12/02/22) Medical non-compliance Non-smoker Thyroid nodule Essential hypertension Hyperlipidemia Near syncope Dizziness Gait disturbance Confusion Atrial fibrillation BPPV (benign paroxysmal positional vertigo) Nevus Intermittent palpitations High cholesterol Hypertension Home Medications ?Medication ?Instructions ?Recorded ?Last Taken ?Type apixaban 5 mg tablet (Eliquis) 5 mg PO BID #180 tabs 04/23/23 08/30/24 Rx atorvastatin 80 mg tablet 80 mg PO QHS #90 tabs 04/23/23 08/30/24 Rx donepezil 5 mg tablet (Aricept) 5 mg PO DAILY #30 tabs 04/24/23 08/30/24 Rx meclizine 50 mg tablet (Antivert) 50 mg PO BID PRN dizziness #30 tabs 07/24/23 Unknown Rx ferrous sulfate 325 mg (65 mg 325 mg PO BID #100 tabs 08/31/24 08/30/24 Rx iron) tablet losartan 100 mg tablet 100 mg PO DAILY 08/31/24 08/30/24 History metoprolol succinate 25 mg 25 mg PO DAILY 08/31/24 08/30/24 History tablet,extended release 24 hr amiodarone 200 mg tablet 200 mg PO DAILY hr 09/01/24 Unknown History spironolactone 50 mg tablet 50 mg PO DAILY hf 09/01/24 Unknown History Allergy/AdvReac Type Severity Reaction Status Date / Time No Known Allergies Allergy Verified 08/31/24 13:36 Family History Father Hypertension High cholesterol Brother Parkinson disease Sister Seizures Sister Seizures Surgical History History of cholecystectomy History of D&C History of foot surgery History of appendectomy History of hysterectomy Social History household members: family housing: house Smoking Status: Never smoker alcohol intake: never substance use type: does not use caffeine: Yes Type: carbonated beverages and tea Number of servings: 1 what type of physical activity do you participate in: none Review of Systems (Anesthesia) ROS Narrative System reviewed and no additional complaints, except as documented.
--- NOTE | 2024-09-01 14:00 | COLBX_PTH ---
PATIENT: LACI REDDING LOC: [facility] U#:[id number] AGE/SX: 74/F ROOM: [facility] RE08/31/[address]: Dr. Devon Burleson MD : [id number] BED: 1 DIS: 09/04/2024 SPEC #: [id number] RECD: 09/02/24 08:03 STATUS: YONATAN REAnupam #: [id number] BALJEET: 09/01/24 14:[address]: Victor Manuel Davies DEPT: SURGICAL PATHOLOGY RECD BY: Jennifer Romero ENTERED: 09/02/24 10:54 SP TYPE: COLON BX OTHR DR: Dr. Otilio Abel, DO Dr. Mane Lugo, MD Dr. Devon Hussein Dr., MD Tissues: COLON BIOPSY Procedures: Surgery Specimen Level IV Comments: @ Ordering doctor for SUIV edited from to @ by MORENO at 09/02/24 1116 @ Submitting doctor edited from to @ by MORENO at 09/02/24 1116 HEADER OPERATION: Colonoscopy, EGD, biopsy PRE-OP DIAGNOSIS: Occult GI bleeding TISSUE SUBMITTED: Hepatic flexure polyp biopsy MICROSCOPIC DIAGNOSIS Hepatic flexure polyp, biopsy: Tubular adenoma, focal mild cryptitis. No dysplasia identified. 09/03/2024 MICROSCOPIC DESCRIPTION Slides are reviewed. GROSS DESCRIPTION Received in fixative is one container labeled with the patient's name and designated Hepatic flexure polyp biopsy. The specimen consists of one irregular fragment of light barnett soft tissue that measures 0.5 x 0.4 x 0.1 cm. The specimen is totally submitted in one cassette. MS/ 09/02/2024 TC:1 CPT:12462
--- NOTE | 2024-09-01 14:36 | PN.GI_ITS ---
Subjective Subjective Patient prep was not clear as per nursing. I requested that she get 3 subset enemas. Objective Data Objective Data Vital Signs: Vital Signs Temp Pulse Resp BP Pulse Ox O2 Del Method 98.2 F 79 18 130/68 H 94 Room Air 09/01/24 13:53 09/01/24 13:53 09/01/24 13:53 09/01/24 13:53 09/01/24 13:53 09/01/24 13:53 Oxygen Delivery Method Room Air Weight: 209 lb 3.499 oz Body Mass Index (BMI) 32.8 Intake & Output: Intake and Output for Last 24 Hours 08/30/24 08/31/24 09/01/24 23:59 23:59 23:59 Intake Total 1145 / 1145 110 / 110 Balance 1145 / 1145 110 / 110 Lab / Micro Data 09/01/24 05:30 09/01/24 05:30 Labs: Laboratory Results - last 24 hr 08/31/24 14:45: Blood Type A POSITIVE, Antibody Screen NEGATIVE, Crossmatch See Detail 08/31/24 14:56: WBC 7.1, RBC 3.16 L, Hgb 7.2 L, Hct 24.3 L, MCV 76.9 L, MCH 22.8 L, MCHC 29.6 L, RDW Std Deviation 44.8 H, RDW Coeff of Brianna 15.9 H, Plt Count 410, MPV 10.0, Immature Gran % (Auto) 0.700, Neut % (Auto) 74.3 H, Lymph % (Auto) 10.4 L, [place] % (Auto) 10.3 H, Eos % (Auto) 3.7, Baso % (Auto) 0.6, Absolute Neuts (auto) 5.3, Absolute Lymphs (auto) 0.74 L, Nucleated RBC % 0, Sodium 137, Potassium 3.6, Chloride 104, Carbon Dioxide 23.0, Anion Gap 10, BUN 18, Creatinine 1.49 H, Estim Creat Clear Calc 39.12, Est GFR (MDRD) Af Amer 44 L , Est GFR (MDRD) Non-Af 36 L, BUN/Creatinine Ratio 12.1, Glucose 149 H, Calcium 9.0, Iron 18 L, TIBC 373, Iron Saturation 4.8 L, Ferritin 6 L, Troponin I High Sens 7, Folate 10.60, TSH 1.350 08/31/24 16:33: Urine Color Yellow, Urine Clarity Clear, Urine pH 5.0, Ur Specific [place] 1.010, Urine Protein Negative, Urine Glucose (UA) Normal, Urine Ketones Negative, Urine Occult Blood Negative, Urine Nitrite Negative, Urine Bilirubin Negative, Urine Urobilinogen Normal, Ur Leukocyte Esterase Negative, Urine RBC 0-5 SEEN, Urine WBC 0-5 SEEN, Ur Squamous Epith Cells 0 SEEN, Urine Bacteria 0 SEEN, Urine Mucus 0 SEEN 09/01/24 05:30: WBC 6.4, RBC 2.71 L, Hgb 6.2 L, Hct 21.0 L, MCV 77.5 L, MCH 22.9 L, MCHC 29.5 L, RDW Std Deviation 45.2 H, RDW Coeff of Brianna 16.0 H, Plt Count 402, MPV 9.9, PT 15.9 H, INR 1.2, APTT 28.4, Sodium 140, Potassium 3.7, Chloride 110 H, Carbon Dioxide 21.0, Anion Gap 9, BUN 13, Creatinine 1.35 H, Estim Creat Clear Calc 41.93, Est GFR (MDRD) Af Amer 49 L, Est GFR (MDRD) Non-Af 41 L, B UN/Creatinine Ratio 9.6 L, Glucose 101, Calcium 8.5, Vitamin B12 229 Micro: Microbiology 08/31/24 16:33 Urine Catheter - [place] Urine Culture - Preliminary Culture exhibits no growth. 08/31/24 16:25 Stool Stool Occult Blood (MELISSA) - Final Occult Blood Positive Radiography Diagnostic Testing: Radiology Impression Brain CT 08/31/24 15:06 IMPRESSION: Right temporo-occipital nonhemorrhagic infarction. Mild senescent change. One or more dose reduction techniques were used (e.g., Automated exposure control, adjustment of the mA and/or kV according to patient size, use of iterative reconstruction technique). Reading Location: [facility] Chest X-Ray 08/31/24 16:15 IMPRESSION: No acute cardiopulmonary process. Reading [facility] Physical Exam Narrative Seen and examined. Physical exam General: Alert, Oriented x3, Cooperative HEENT: Atraumatic, PERRLA, EOMI, Normocephalic Oral: Oral mucosa moist. No Gingival or Mucosal Lesions/ Ulcerations Neck: Supple, No JVD, Negative Carotid Bruits Lungs: Air entry diminished in bilateral lung bases. No crepitation/rhonchi Cardiovascular: A-fib, Normal S1, Normal S2, systolic murmur LLSB and cardiac apex. Abdomen: Bowel Sounds Present, Soft, Non Tender, Non-Distended : No renal angle tenderness. No suprapubic tenderness. Extremities: Peripheral leg edema is improved, Capillary Refill Less than 3 Seconds Skin: No rashes, No breakdown Musculoskeletal: No Tenderness to Palpation of Joints or Extremities. Range of motion intact. Neurological: Cranial nerves II-XII grossly intact, DTR 2+/4 and Symmetrical, Neuro grossly intact Psych/Mental Status: Normal Affect, Appropriate. Assessment & Plan Assessment/Plan (1) Acute on chronic anemia: PLAN: Plan Patient is a 74-year-old female who presented [facility] [place] ED on 08/31/2024 with fatigue with dizziness and acute on chronic anemia. Differential diagnosis for acute on chronic anemia would be occult GI malignancy, gastric antral vascular ectasia, telangiectasia, peptic ulcer disease, iron deficiency anemia secondary to celiac disease. Patient is at risk for GI bleed due to poor nutrition and administration of Eliquis. She should undergo an upper and lower endoscopy evaluate upper lower GI tract. She was explained alternatives, risk and benefits include understanding bleeding, infection, sepsis, perforation, need for emergent urgent . She have an ASA of 3. Charges/Coding Visit Charges Inpatient E&M: 03777 Subs Hosp L2
--- NOTE | 2024-09-01 15:12 | PCM.POST.ANE ---
Anesthesia: Postop Eval I Current Vital Signs Temperature: 97.8 F Pulse Rate: 67 Blood Pressure: 118/47 Respiratory Rate: 18 Pulse Ox: 98 Oxygen Delivery Method: Room Air Assessment Airway patent: Yes Spontaneous unlabored respirations: Yes Mental status: Asleep nausea: No Vomiting: No Anesthesia Complication: No Fluid Hydration Crystalloid volume administer (ml): 60 Total IV fluid infused: 60 Progress Note Anesthesia document: Postop Eval 1 completed: Yes
--- NOTE | 2024-09-01 15:25 | PCM.POSTANE2 ---
Anesthesia Postop Eval I Sum Postop Eval Completion status Anesthesia document: Postop Eval 1 completed: Yes Anesthesia Postop Eval I Summary Anesthesia Postop Eval I Summary: Anesthesia Postop Eval I: Assessment Summary Airway patent Yes 09/01/24 15:13 [email or web address] Spontaneous unlabored Yes 09/01/24 15:13 [email or web address] respirations Mental status Asleep 09/01/24 15:13 [email or web address] nausea No 09/01/24 15:13 [email or web address] Vomiting No 09/01/24 15:13 [email or web address] Anesthesia Postop Eval I: Fluid Summary Crystalloid volume administer 60 09/01/24 15:13 [email or web address] (ml) Colloids volume administered ( ml) Blood Product volume administered (ml) Total IV fluid infused 60 09/01/24 15:13 [email or web address] Anesthesia Postop Eval I: Summary Notes Anesthesia Complication No 09/01/24 15:13 [email or web address] Anesthesia Complication Comment: Post-operative progress note Anesthesia: Postop Eval II Evaluation Mental status: Awake Pain Level: 0 nausea: No Vomiting: No Complications Anesthesia Complication: No
--- NOTE | 2024-09-01 15:50 | PCM.PN.HOSP ---
Reason for Visit Reason for Visit: Diagnoses Anemia, unspecified (08/31/24) Objective Data Objective Data Vital Signs: Vital Signs Temp Pulse Resp BP Pulse Ox O2 Del Method 98.1 F 58 L 16 126/43 H 98 Room Air 09/01/24 15:30 09/01/24 15:30 09/01/24 15:30 09/01/24 15:30 09/01/24 15:30 09/01/24 15:30 Oxygen Delivery Method Room Air Weight: 209 lb 3.499 oz Body Mass Index (BMI) 32.8 Intake & Output: Intake and Output for Last 24 Hours 08/30/24 08/31/24 09/01/24 23:59 23:59 23:59 Intake Total 1145 / 1145 610 / 610 Balance 1145 / 1145 610 / 610 Lab / Micro Data 09/01/24 05:30 09/01/24 05:30 Labs: Laboratory Results - last 24 hr 08/31/24 14:45: Blood Type A POSITIVE, Antibody Screen NEGATIVE, Crossmatch See Detail 08/31/24 14:56: WBC 7.1, RBC 3.16 L, Hgb 7.2 L, Hct 24.3 L, MCV 76.9 L, MCH 22.8 L, MCHC 29.6 L, RDW Std Deviation 44.8 H, RDW Coeff of Brianna 15.9 H, Plt Count 410, MPV 10.0, Immature Gran % (Auto) 0.700, Neut % (Auto) 74.3 H, Lymph % (Auto) 10.4 L, [place] % (Auto) 10.3 H, Eos % (Auto) 3.7, Baso % (Auto) 0.6, Absolute Neuts (auto) 5.3, Absolute Lymphs (auto) 0.74 L, Nucleated RBC % 0, Sodium 137, Potassium 3.6, Chloride 104, Carbon Dioxide 23.0, Anion Gap 10, BUN 18, Creatinine 1.49 H, Estim Creat Clear Calc 39.12, Est GFR (MDRD) Af Amer 44 L, Est GFR (MDRD) Non-Af 36 L, BUN/Creatinine Ratio 12.1, Glucose 149 H, Calcium 9.0, Iron 18 L, TIBC 373, Iron Saturation 4.8 L, Ferritin 6 L, Troponin I High Sens 7, Folate 10.60, TSH 1.350 08/31/24 16:33: Urine Color Yellow, Urine Clarity Clear, Urine pH 5.0, Ur Specific [place] 1.010, Urine Protein Negative, Urine Glucose (UA) Normal, Urine Ketones Negative, Urine Occult Blood Negative, Urine Nitrite Negative, Urine Bilirubin Negative, Urine Urobilinogen Normal, Ur Leukocyte Esterase Negative, Urine RBC 0-5 SEEN, Urine WBC 0-5 SEEN, Ur Squamous Epith Cells 0 SEEN, Urine Bacteria 0 SEEN, Urine Mucus 0 SEEN 09/01/24 05:30: WBC 6.4, RBC 2.71 L, Hgb 6.2 L, Hct 21.0 L, MCV 77.5 L, MCH 22.9 L, MCHC 29.5 L, RDW Std Deviation 45.2 H, RDW Coeff of Brianna 16.0 H, Plt Count 402, MPV 9.9, PT 15.9 H, INR 1.2, APTT 28.4, Sodium 140, Potassium 3.7, Chloride 110 H, Carbon Dioxide 21.0, Anion Gap 9, BUN 13, Creatinine 1.35 H, Estim Creat Clear Calc 41.93, Est GFR (MDRD) Af Amer 49 L, Est GFR (MDRD) Non-Af 41 L, BUN/Creatinine Ratio 9.6 L, Glucose 101, Calcium 8.5, Vitamin B12 229 Micro: Microbiology 08/31/24 16:33 Urine Catheter - [place] Urine Culture - Preliminary Culture exhibits no growth. 08/31/24 16:25 Stool Stool Occult Blood (MELISSA) - Final Occult Blood Positive Radiography Diagnostic Testing: Radiology Impression Brain CT 08/31/24 15:06 IMPRESSION: Right temporo-occipital nonhemorrhagic infarction. Mild senescent change. One or more dose reduction techniques were used (e.g., Automated exposure control, adjustment of the mA and/or kV according to patient size, use of iterative reconstruction technique). Reading Location: [facility] Chest X-Ray 08/31/24 16:15 IMPRESSION: No acute cardiopulmonary process. Reading Location: [facility] Physical Exam Narrative Seen and examined. Patient denies any external obvious bleeding including hematemesis, hematochezia/melena. No hematuria/menorrhagia/ bleed or other epistaxis Hemoglobin dropped to 6.2. No abdominal pain. Physical exam General: Alert, Oriented x3, Cooperative HEENT: Atraumatic, PERRLA, EOMI, Normocephalic Oral: No Gingival or Mucosal Lesions/ Ulcerations Neck: Supple, No JVD, Negative Carotid Bruits Chest wall/Lungs: Air entry diminished in bilateral lung bases. No crepitation/rhonchi Cardiovascular: Regular rate, Regular Rhythm, Normal S1, Normal S2, No M/G/R Abdomen: Bowel Sounds Present, Soft, Non Tender, Non-Distended : No dysuria. No renal angle tenderness. No suprapubic tenderness. Extremities: No edema, Capillary Refill Less than 3 Seconds Skin: No rashes, No breakdown Musculoskeletal: No Tenderness to Palpation of Joints or Extremities Neurological: Cranial nerves II-XII grossly intact, DTR 2+/4. No acute focal neurological deficit. Psych/Mental Status: Normal Affect, Appropriate. Assessment & Plan Assessment/Plan (1) Acute on chronic anemia: PLAN: Plan Patient is a 74-year-old female who presented [facility] ED on 08/31/2024 with fatigue with dizziness and acute on chronic anemia. Denies bleeding 1. Acute on chronic anemia with concern for occult GI bleed ? Admit under inpatient status to PCU. GI consulted. Hemoglobin 7.2 on admit, appears to be slowly decreasing over past few months. 09/01: Hemoglobin dropped to 6.2 g%. 1 unit PRBC ordered. Her hemoglobin was about 12 g in 2022 then dropped to 8.7 in July 2024. Hemodynamically blood pressure and heart rate in acceptable range. No hypoxia Iron studies shows very low ferritin 6, iron saturation 4.8%. Serum iron 18. Suggestive of iron deficiency anemia. B12 low at 229. Folic acid normal TSH normal. Continue IV PPI twice daily for now. Holding home Eliquis. Plan for EGD and colonoscopy 2. Paroxysmal A-fib on Eliquis ? In normal sinus rhythm on admit. Holding Eliquis as above. Continue home Toprol and diltiazem. 3. History of CVA, nonobstructive CAD, HFrEF with nonischemic cardiomyopathy, hypertension, hyperlipidemia ? CT brain on admit showed right temporal occipital nonhemorrhagic infarction with mild senescent changes. On review of prior CT brain from 2022, appears this lesion was present at that time. Last echo in 2022 showed EF 40% with global LV dysfunction. Mildly hypertensive in the ED. Continue home aspirin, statin, diltiazem, losartan, Lasix and Toprol. 4. BPPV ? Suspected that dizziness on admit was due to vertigo as patient reports it is similar to her baseline. Could be mild exacerbated by worsening anemia. Continue home meclizine as needed. 5. Bedbug infestation ? Noted in the ED. Contact cautions in place. 6. Cognitive impairment ? Alert and answering questions appropriately on admit. Continue home donepezil. 7. Class I obesity ? BMI 32 on admit. Complicates hospital course, care and prognosis. DVT prophylaxis: SCDs CODE STATUS: Full code, verified Charges/Coding Visit Charges Inpatient E&M: 91821 Subs Hosp L2
[2024-09-01 20:46] LABS: Hemoglobin 7.5 g/dL (12.0-15.0)
[2024-09-01] MEDS: Atorvastatin Calcium 80 MG Tablet PO (21:48)
[2024-09-02] VITALS (9 sets, daily range): BP systolic 96–120; BP diastolic 39–54; PULSE 40–49; RESP 14–27; TEMP 36.2–36.9; O2SAT 92–100
[2024-09-02 07:20] LABS: Absolute Lymphocyte Count 1.02 X10^3/uL (0.83-4.51); Absolute Neutrophil Count 4.5 X10^3/uL (2.0-7.7); Basophil# 0.05 X10^3/uL; Basophil% 0.7 % (0-1); Eosinophil# 0.41 X10^3/uL; Hematocrit 22.8 % (37-47); Hemoglobin 7.1 g/dL (12.0-15.0); Lymphocyte # 1.02 X10^3/ul (0.83-4.51); Mean Corp Hgb Conc 31.1 g/dL (32-36); Mean Corpuscular Hgb 24.2 pg (27.0-32.0); Mean Corpuscular Volume 77.8 fL (81-99); Mean Platelet Vol. 9.9 fl (6.2-12.0); Monocyte% 11.8 % (0-10); NRBC Flagged by Analyzer 0 % (0-5); Neutrophil # 4.48 X10^3/uL (2.7-7.7); Neutrophil % 65.9 % (47-70); Platelet Count 385 K/mm3 (150-450); RBC Distribution Width CV 16.1 % (11.6-14.6); RBC Distribution Width SD 45.7 fl (35.1-43.9); Red Blood Count 2.93 M/mm3 (4.2-5.4); White Blood Count 6.8 K/mm3 (4.4-11.0)
[2024-09-02 07:50] LABS: Anion Gap 7 (5-15); BUN 10 mg/dL (7-18); BUN/Creat Ratio 6.9 RATIO (10-20); Calcium,Total 8.5 mg/dL (8.5-10.1); Chloride 110 mmol/L (98-107); Creatinine, Serum 1.45 mg/dL (0.55-1.02); EST Glomerular Filtration Rate 37 mL/min (>60); Est Glom Filt Rate - Afr Amer 45 mL/min (>60); Estimated Creatinine Clearance 39.04 ml/min; Glucose 102 mg/dL (74-106); Potassium 3.7 mmol/L (3.5-5.1); Sodium Level 138 mmol/L (136-145)
[2024-09-02] MEDS: Pantoprazole Sodium 40 MG in 0.9% Normal Saline (100mL MB+) 100 ML 330 MG IV ×2 (09:16→22:45)
[2024-09-02] MEDS: Lactated Ringers 500 ML 999 ML IV (10:23)
[2024-09-02] MEDS: Aspirin E.C. 81 MG Tablet PO (10:23)
--- NOTE | 2024-09-02 12:26 | PCM.CONS.C ---
Assessment & Plan Assessment/Plan (1) Atrial fibrillation: QUALIFIERS: Atrial fibrillation type: paroxysmal Qualified Code(s): I48.0 - Paroxysmal atrial fibrillation PLAN: Patient has been in sinus rhythm for the most part. Occasionally she goes into junctional rhythm. We are holding the Toprol-XL, Cardizem and Aricept for now. Once the heart rate recovers we can add medications slowly at a lower dose. We can start with Toprol-XL at 25 mg p.o. daily, continuing to hold Cardizem. (2) Bradycardia: PLAN: Could be related to patient's medications. We are holding her medications as described above. It is unclear if her symptoms are from her bradycardia. HPI Consult Data Date of Consult: 09/02/24 HPI Narrative Reason for Consultation: Bradycardia, dizziness HPI Narrative: LACI REDDING, is a 74 F who presents after she was found to have significantly low hemoglobin and testing done by her primary care physician. Patient was seen by her PCP on August 23, 2024. At the time she complained of dizziness. Blood work was ordered and her metoprolol was stopped according to the PCP notes. Patient went for follow-up on the and was found to have severe anemia and was sent to the emergency room where she was found to be Hemoccult positive. She was admitted to the PCU. It is unclear if she ever stopped her metoprolol or if she was continuing to take it. On August 23 patient's heart rate was in the low 50s and she was complaining of dizziness. On her follow-up visit also it was around the same. Going by PCP notes it appears that she was on Cardizem CD as well. Prior notes indicate that she was taking Cardizem CD. Upon admission patient was started on Cardizem CD 120 mg daily and Toprol-XL. Her heart rate was in the low 50s to 60s upon presentation and she has had further worsening of her bradycardia with a heart rate sometimes going to the 30s. Her Cardizem, Toprol and Aricept are on hold. Patient's dizziness has been going on for a long time. There is a note from her PCP in July 2023 when she was complaining of dizziness as well. At that time it appeared to be vertigo from her description. [facility] Medical History Memory loss, short term Chronic systolic (congestive) heart failure Coronary artery disease Nonrheumatic aortic (valve) insufficiency Non-rheumatic tricuspid valve insufficiency Non-rheumatic mitral regurgitation History of left heart catheterization (LHC) (~12/02/22) Medical non-compliance Non-smoker Thyroid nodule Essential hypertension Hyperlipidemia Near syncope Dizziness Gait disturbance Confusion Atrial fibrillation BPPV (benign paroxysmal positional vertigo) Nevus Intermittent palpitations High cholesterol Hypertension Home Medications ?Medication ?Instructions ?Recorded ?Last Taken ?Type apixaban 5 mg tablet (Eliquis) 5 mg PO BID #180 tabs 04/23/23 08/30/24 Rx atorvastatin 80 mg tablet 80 mg PO QHS #90 tabs 04/23/23 08/30/24 Rx donepezil 5 mg tablet (Aricept) 5 mg PO DAILY #30 tabs 04/24/23 08/30/24 Rx meclizine 50 mg tablet (Antivert) 50 mg PO BID PRN dizziness #30 tabs 07/24/23 Unknown Rx ferrous sulfate 325 mg (65 mg 325 mg PO BID #100 tabs 08/31/24 08/30/24 Rx iron) tablet losartan 100 mg tablet 100 mg PO DAILY 08/31/24 08/30/24 History metoprolol succinate 25 mg 25 mg PO DAILY 08/31/24 08/30/24 History tablet,extended release 24 hr amiodarone 200 mg tablet 200 mg PO DAILY hr 09/01/24 Unknown History spironolactone 50 mg tablet 50 mg PO DAILY hf 09/01/24 Unknown History Allergy/AdvReac Type Severity Reaction Status Date / Time No Known Allergies Allergy Verified 08/31/24 13:36 Family History Father Hypertension High cholesterol Brother Parkinson disease Sister Seizures Sister Seizures Surgical History History of cholecystectomy History of D&C History of foot surgery History of appendectomy History of hysterectomy Social History household members: family housing: house Smoking Status: Never smoker alcohol intake: never substance use type: does not use caffeine: Yes Type: carbonated beverages and tea Number of servings: 1 what type of physical activity do you participate in: none Physical Exam Narrative Patient was not examined and consult was provided based on review of the chart, talking to patient's hospitalist and review of telemetry and other records. Risk Stratification Risk Stratification Applicable: No Objective Data Vital Signs: Vital Signs Temp Pulse Resp BP Pulse Ox O2 Del Method 98.4 F 42 L 14 108/50 L 97 Room Air 09/02/24 09:12 09/02/24 09:12 09/02/24 09:12 09/02/24 09:12 09/02/24 09:12 09/02/24 09:12 Oxygen Delivery Method Room Air Weight: 209 lb 3.499 oz Body Mass Index (BMI) 32.8 Intake & Output: Intake and Output for Last 24 Hours 08/31/24 09/01/24 09/02/24 23:59 23:59 23:59 Intake Total 1145 / 1145 1240 / 1240 610 / 610 Balance 1145 / 1145 1240 / 1240 610 / 610 Lab / Micro Data 09/02/24 04:48 09/02/24 04:48 Labs: Laboratory Results - last 24 hr 08/31/24 14:45: Blood Type A POSITIVE, Antibody Screen NEGATIVE, Crossmatch See Detail 08/31/24 14:45: Crossmatch See Detail 09/01/24 20:32: Hgb 7.5 L, Hct 24.0 L 09/02/24 04:48: WBC 6.8, RBC 2.93 L, Hgb 7.1 L, Hct 22.8 L, MCV 77.8 L, MCH 24.2 L, MCHC 31.1 L D, RDW Std Deviation 45.7 H, RDW Coeff of Brianna 16.1 H, Plt Count 385, MPV 9.9, Immature Gran % (Auto) 0.600, Neut % (Auto) 65.9, Lymph % (Auto) 15.0 L, [place] % (Auto) 11.8 H, Eos % (Auto) 6.0 H, Baso % (Auto) 0.7, Absolute Neuts (auto) 4.5, Absolute Lymphs (auto) 1.02, Nucleated RBC % 0, Sodium 138, Potassium 3.7, Chloride 110 H, Carbon Dioxide 22.0, Anion Gap 7, BUN 10, Creatinine 1.45 H, Estim Creat Clear Calc 39.04, Est GFR (MDRD) Af Amer 45 L, Est GFR (MDRD) Non-Af 37 L, BUN/Creatinine Ratio 6.9 L, Glucose 102, Calcium 8.5 Micro: Microbiology 08/31/24 16:33 Urine Catheter - [place] Urine Culture - Preliminary Culture exhibits no growth. Cardiology Labs/Tests 09/01/24 20:32: Hgb 7.5 L, Hct 24.0 L 09/02/24 04:48: WBC 6.8, RBC 2.93 L, Hgb 7.1 L, Hct 22.8 L, MCV 77.8 L, MCH 24.2 L, MCHC 31.1 L D, Plt Count 385, MPV 9.9, Immature Gran % (Auto) 0.600, Neut % (Auto) 65.9, Lymph % (Auto) 15.0 L, [place] % (Auto) 11.8 H, Eos % (Auto) 6.0 H, Baso % (Auto) 0.7, Absolute Neuts (auto) 4.5, Nucleated RBC % 0, Sodium 138, Potassium 3.7, Chloride 110 H, Carbon Dioxide 22.0, Anion Gap 7, BUN 10, Creatinine 1.45 H, Est GFR (MDRD) Af Amer 45 L, Est GFR (MDRD) Non-Af 37 L, BUN/Creatinine Ratio 6.9 L, Glucose 102, Calcium 8.5 Rhythm: EKG: ECHO: Stress Test: Cardiac Cath: PCI: CT Surgery: Holter monitor: EPS: PPM: CXR: Chest CT Scan:
--- NOTE | 2024-09-02 16:40 | PCM.PN.HOSP ---
Reason for Visit Reason for Visit: Diagnoses Anemia, unspecified (08/31/24) Paroxysmal atrial fibrillation (08/31/24) Bradycardia, unspecified (08/31/24) Objective Data Objective Data Vital Signs: Vital Signs Temp Pulse Resp BP Pulse Ox O2 Del Method 98.5 F 40 L 24 H 108/39 L 95 Room Air 09/02/24 14:00 09/02/24 15:00 09/02/24 15:00 09/02/24 15:00 09/02/24 15:00 09/02/24 15:00 Oxygen Delivery Method Room Air Weight: 209 lb 3.499 oz Body Mass Index (BMI) 32.8 Intake & Output: Intake and Output for Last 24 Hours 08/31/24 09/01/24 09/02/24 23:59 23:59 23:59 Intake Total 1145 / 1145 1240 / 1240 1360 / 1360 Balance 1145 / 1145 1240 / 1240 1360 / 1360 Lab / Micro Data 09/02/24 04:48 09/02/24 04:48 Labs: Laboratory Results - last 24 hr 08/31/24 14:45: Crossmatch See Detail 09/01/24 20:32: Hgb 7.5 L, Hct 24.0 L 09/02/24 04:48: WBC 6.8, RBC 2.93 L, Hgb 7.1 L, Hct 22.8 L, MCV 77.8 L, MCH 24.2 L, MCHC 31.1 L D, RDW Std Deviation 45.7 H, RDW Coeff of Brianna 16.1 H, Plt Count 385, MPV 9.9, Immature Gran % (Auto) 0.600, Neut % (Auto) 65.9, Lymph % (Auto) 15.0 L, [place] % (Auto) 11.8 H, Eos % (Auto) 6.0 H, Baso % (Auto) 0.7, Absolute Neuts (auto) 4.5, Absolute Lymphs (auto) 1.02, Nucleated RBC % 0, Sodium 138, Potassium 3.7, Chloride 110 H, Carbon Dioxide 22.0, Anion Gap 7, BUN 10, Creatinine 1.45 H, Estim Creat Clear Calc 39.04, Est GFR (MDRD) Af Amer 45 L, Est GFR (MDRD) Non-Af 37 L, BUN/Creatinine Ratio 6.9 L, Glucose 102, Calcium 8.5 Micro: Microbiology 08/31/24 16:33 Urine Catheter - Soto Urine Culture - Preliminary Culture exhibits no growth. 08/31/24 16:25 Stool Stool Occult Blood (MELISSA) - Final Occult Blood Positive Physical Exam Narrative Seen and examined. Patient heart rate in low 40s. Toprol-XL, Cardizem and Aricept held. Claim Review Medical Director consulted and discussed with him. As per nursing staff, she felt mildly dizzy. BP was 108/50., 96/54 Patient denies any external obvious bleeding including hematemesis, hematochezia/melena. No hematuria/menorrhagia/ bleed or other epistaxis Hemoglobin 7.1. No abdominal pain. Physical exam General: Alert, Oriented x3, Cooperative HEENT: Atraumatic, PERRLA, EOMI, Normocephalic Oral: No Gingival or Mucosal Lesions/ Ulcerations Neck: Supple, No JVD, Negative Carotid Bruits Chest wall/Lungs: Air entry diminished in bilateral lung bases. No crepitation/rhonchi Cardiovascular: Sinus bradycardia sometimes junctional rhythm. Normal S1, Normal S2, No M/G/R Abdomen: Bowel Sounds Present, Soft, Non Tender, Non-Distended : No dysuria. No renal angle tenderness. No suprapubic tenderness. Extremities: No edema, Capillary Refill Less than 3 Seconds Skin: No rashes, No breakdown Musculoskeletal: No Tenderness to Palpation of Joints or Extremities Neurological: Cranial nerves II-XII grossly intact, DTR 2+/4. No acute focal neurological deficit. Psych/Mental Status: Normal Affect, Appropriate. Assessment & Plan Assessment/Plan (1) Acute on chronic anemia: PLAN: Plan Patient is a 74-year-old female who presented [facility] ED on 08/31/2024 with fatigue with dizziness and acute on chronic anemia. Denies bleeding 1. Acute on chronic anemia with concern for occult GI bleed ? Admit under inpatient status to PCU. GI consulted. Hemoglobin 7.2 on admit, appears to be slowly decreasing over past few months. 09/01: Hemoglobin dropped to 6.2 g%. 1 unit PRBC ordered. Her hemoglobin was about 12 g in 2022 then dropped to 8.7 in July 2024. Hemodynamically blood pressure and heart rate in acceptable range. No hypoxia Iron studies shows very low ferritin 6, iron saturation 4.8%. Serum iron 18. Suggestive of iron deficiency anemia. B12 low at 229. Folic acid normal TSH normal. Continue IV PPI twice daily for now. Holding home Eliquis. Plan for EGD and colonoscopy 09/02: Hemoglobin 7.1. 1 more unit of PRBC ordered. 2. Paroxysmal A-fib on Eliquis ? In normal sinus rhythm on admit. Holding Eliquis as above. Continue home Toprol and diltiazem. 09/02: Severe bradycardia, heart rate in 40s with low blood pressure 100/50, 96/54.BP 108/60 mmHg after 500 mL bolus. Toprol, diltiazem and Aricept held. Claim Review Medical Director consult reviewed and appreciated. No need to repeat echo 3. History of CVA, nonobstructive CAD, HFrEF with nonischemic cardiomyopathy, hypertension, hyperlipidemia ? CT brain on admit showed right temporal occipital nonhemorrhagic infarction with mild senescent changes. On review of prior CT brain from 2022, appears this lesion was present at that time. Last echo in 2022 showed EF 40% with global LV dysfunction. Mildly hypertensive in the ED. Continue home aspirin, statin, diltiazem, losartan, Lasix and Toprol. 4. BPPV ? Suspected that dizziness on admit was due to vertigo as patient reports it is similar to her baseline. Could be mild exacerbated by worsening anemia. Continue home meclizine as needed. 5. Bedbug infestation ? Noted in the ED. Contact cautions in place. 6. Cognitive impairment ? Alert and answering questions appropriately on admit. Continue home donepezil. 7. Class I obesity ? BMI 32 on admit. Complicates hospital course, care and prognosis. DVT prophylaxis: SCDs CODE STATUS: Full code, verified Total time of the visit including total time spent in counseling or coordination of care, (more than 50% of the total time, spent in obtaining medical information from nurses and other ancillary care providers ,explaining to the patient about labs, imaging, diagnosis and management of active complex medical conditions), discussion with cardiology, review of labs and imaging is 40 minutes. Charges/Coding Visit Charges Inpatient E&M: 18214 Subs Hosp L3
--- NOTE | 2024-09-02 17:24 | OP.CCLET_ITS ---
09/02/2024 Mane Lugo Re : Upper GI endoscopy procedure for Tea Aguilar Dear Dr. Lugo This procedure was performed on Sunday, September 01, 2024. My impressions and recommendations are as follows: Impressions : - Normal esophagus. - Medium-sized hiatal hernia. - Normal fourth portion of the duodenum. - No specimens collected. Recommendations : - [facility]. - Resume previous diet. - Continue present medications. My findings are described in the full procedure note, which is enclosed. If I can be of further assistance, please feel free to contact me at . Sincerely, Victor Manuel Davies, 09/02/2024 5:23:44 PM This report has been signed electronically.
--- NOTE | 2024-09-02 17:24 | OP.EGD_ITS ---
Patient Name: Tea Aguilar Procedure Date: 09/01/2024 2:22 PM Date of : 1950 Age: 74 Procedure: Upper GI endoscopy Indications: Epigastric abdominal pain, Iron deficiency anemia, Melena, Recent gastrointestinal bleeding, Suspected upper gastrointestinal bleeding Providers: Victor Manuel Davies DO Medicines: Monitored Anesthesia Care Patient Profile: This is a 74 year old female. Refer to note in patient chart for documentation of history and physical. Patient has symptoms of acute epigastric abdominal pain. Complications: No immediate complications. Procedure: Pre-Anesthesia Assessment: - Prior to the procedure, a History and Physical was performed, and patient medications and allergies were reviewed. The patient is competent. The risks and benefits of the procedure and the sedation options and risks were discussed with the patient. All questions were answered and informed consent was obtained. Patient identification and proposed procedure were verified by the physician in the pre-procedure area. Mental Status Examination: alert and oriented. Respiratory Examination: clear to auscultation. CV Examination: normal. Prophylactic Antibiotics: The patient does not require prophylactic antibiotics. Prior Anticoagulants: The patient has taken no anticoagulant or antiplatelet agents. ASA Grade Assessment: II - A patient with mild systemic disease. After reviewing the risks and benefits, the patient was deemed in satisfactory condition to undergo the procedure. The anesthesia plan was to use monitored anesthesia care (MAC). Immediately prior to administration of medications, the patient was re-assessed for adequacy to receive sedatives. The heart rate, respiratory rate, oxygen saturations, blood pressure, adequacy of pulmonary ventilation, and response to care were monitored throughout the procedure. The physical status of the patient was re-assessed after the procedure. After obtaining informed consent, the endoscope was passed under direct vision. Throughout the procedure, the patient's blood pressure, pulse, and oxygen saturations were monitored continuously. The Colonoscope was introduced through the mouth, and advanced to the fourth part of the duodenum. Small bowel enteroscopy was deemed necessary. The upper GI endoscopy was accomplished without difficulty. The patient tolerated the procedure well. Scope In: 2:48:00 PM Scope Out: 2:49:09 PM Total Procedure Duration Time 0 hours 1 minute 9 seconds Findings: The examined esophagus was normal. A medium-sized hiatal hernia was present. The fourth portion of the duodenum was normal. Impression: - Normal esophagus. - Medium-sized hiatal hernia. - Normal fourth portion of the duodenum. - No specimens collected. Recommendation: - Return patient to [facility] for ongoing care. - Resume previous diet. - Continue present medications. Procedure Code(s): --- Professional --- 45191, Small intestinal endoscopy, enteroscopy beyond second portion of duodenum, not including ileum; diagnostic, including collection of specimen(s) by brushing or washing, when performed (separate procedure) CPT copyright 2021 [employer] [place] [employer]. All rights reserved. The codes documented in this report are preliminary and upon alterations workroom clerk review may be revised to meet current compliance requirements. Victor Manuel Davies DO 09/02/2024 5:23:44 PM This report has been signed electronically. Number of Addenda: 0 Note Initiated On: 09/01/2024 2:22 PM
--- NOTE | 2024-09-02 17:26 | PN.GI_ITS ---
Subjective Subjective The patient underwent upper and lower endoscopy yesterday for fatigue. There is no signs of acute or chronic GI blood loss see upper and lower endoscopy. He has not had any signs and symptoms of bleeding overnight. She is on Objective Data Objective Data Vital Signs: Vital Signs Temp Pulse Resp BP Pulse Ox O2 Del Method 98.5 F 40 L 24 H 108/39 L 95 Room Air 09/02/24 14:00 09/02/24 15:00 09/02/24 15:00 09/02/24 15:00 09/02/24 15:00 09/02/24 15:00 Oxygen Delivery Method Room Air Weight: 209 lb 3.499 oz Body Mass Index (BMI) 32.8 Intake & Output: Intake and Output for Last 24 Hours 08/31/24 09/01/24 09/02/24 23:59 23:59 23:59 Intake Total 1145 / 1145 1240 / 1240 1360 / 1360 Balance 1145 / 1145 1240 / 1240 1360 / 1360 Lab / Micro Data 09/02/24 04:48 09/02/24 04:48 Labs: Laboratory Results - last 24 hr 08/31/24 14:45: Crossmatch See Detail 09/01/24 20:32: Hgb 7.5 L, Hct 24.0 L 09/02/24 04:48: WBC 6.8, RBC 2.93 L, Hgb 7.1 L, Hct 22.8 L, MCV 77.8 L, MCH 24.2 L, MCHC 31.1 L D, RDW Std Deviation 45.7 H, RDW Coeff of Brianna 16.1 H, Plt Count 385, MPV 9.9, Immature Gran % (Auto) 0.600, Neut % (Auto) 65.9, Lymph % (Auto) 15.0 L, [place] % (Auto) 11.8 H, Eos % (Auto) 6.0 H, Baso % (Auto) 0.7, Absolute Neuts (auto) 4.5, Absolute Lymphs (auto) 1.02, Nucleated RBC % 0, Sodium 138, Potassium 3.7, Chloride 110 H, Carbon Dioxide 22.0, Anion Gap 7, BUN 10, C reatinine 1.45 H, Estim Creat Clear Calc 39.04, Est GFR (MDRD) Af Amer 45 L, Est GFR (MDRD) Non-Af 37 L, BUN/Creatinine Ratio 6.9 L, Glucose 102, Calcium 8.5 Micro: Microbiology 08/31/24 16:33 Urine Catheter - Soto Urine Culture - Preliminary Culture exhibits no growth. 08/31/24 16:25 Stool Stool Occult Blood (MELISSA) - Final Occult Blood Positive Assessment & Plan Assessment/Plan (1) Acute on chronic anemia: PLAN: . PLAN: Plan Patient is a 74-year-old female who presented [facility] ED on 08/31/2024 with fatigue with dizziness and acute on chronic anemia. Differential diagnosis for acute on chronic anemia would be occult GI malignancy, gastric antral vascular ectasia, telangiectasia, peptic ulcer disease, iron deficiency anemia secondary to celiac disease. Patient is at risk for GI bleed due to poor nutrition and administration of Eliquis. She should undergo an upper and lower endoscopy evaluate upper lower GI tract. She was explained alternatives, risk and benefits include understanding bleeding, infection, sepsis, perforation, need for emergent urgent . 09/02/2024- She denies any swelling. Hemoglobin is Currently 7.1 from 7.5. Charges/Coding Visit Charges Inpatient E&M: 82949 Subs Hosp L2
--- NOTE | 2024-09-02 17:26 | OP.CCLET_ITS ---
09/02/2024 Mane Lugo Re : Colonoscopy procedure for Tea Aguilar Dear Dr. Lugo This procedure was performed on Sunday, September 01, 2024. My impressions and recommendations are as follows: Impressions : - Diverticulosis in the recto-sigmoid colon and in the sigmoid colon. - The examined portion of the ileum was normal. Biopsied. Recommendations : - Discharge patient to home. - Resume previous diet. - Continue present medications. - Repeat colonoscopy in 5 years for surveillance. My findings are described in the full procedure note, which is enclosed. If I can be of further assistance, please feel free to contact me at . Sincerely, Victor Manuel Davies, 09/02/2024 5:26:08 PM This report has been signed electronically.
--- NOTE | 2024-09-02 17:26 | OP.COLON_ITS ---
Patient Name: Tea Aguilar Procedure Date: 09/01/2024 2:49 PM Date of : 1950 Age: 74 Procedure: Colonoscopy Indications: Iron deficiency anemia Providers: Victor Manuel Davies DO Medicines: Monitored Anesthesia Care Patient Profile: This is a 74 year old female. Refer to note in patient chart for documentation of history and physical. Patient has symptoms of acute epigastric abdominal pain. Last Colonoscopy: several years ago. Complications: No immediate complications. Procedure: Pre-Anesthesia Assessment: - Prior to the procedure, a History and Physical was performed, and patient medications and allergies were reviewed. The patient is competent. The risks and benefits of the procedure and the sedation options and risks were discussed with the patient. All questions were answered and informed consent was obtained. Patient identification and proposed procedure were verified by the physician in the pre-procedure area. Mental Status Examination: alert and oriented. Respiratory Examination: clear to auscultation. CV Examination: normal. Prophylactic Antibiotics: The patient does not require prophylactic antibiotics. Prior Anticoagulants: The patient has taken no anticoagulant or antiplatelet agents. ASA Grade Assessment: II - A patient with mild systemic disease. After reviewing the risks and benefits, the patient was deemed in satisfactory condition to undergo the procedure. The anesthesia plan was to use monitored anesthesia care (MAC). Immediately prior to administration of medications, the patient was re-assessed for adequacy to receive sedatives. The heart rate, respiratory rate, oxygen saturations, blood pressure, adequacy of pulmonary ventilation, and response to care were monitored throughout the procedure. The physical status of the patient was re-assessed after the procedure. After I obtained informed consent, the scope was passed under direct vision. Throughout the procedure, the patient's blood pressure, pulse, and oxygen saturations were monitored continuously. The Colonoscope was introduced through the anus and advanced to the terminal ileum. The colonoscopy was performed without difficulty. The patient tolerated the procedure well. The quality of the bowel preparation was adequate. The terminal ileum, ileocecal valve, appendiceal orifice, and rectum were photographed. Moderate Sedation: Moderate (conscious) sedation was personally administered by an anesthesia professional. The following parameters were monitored: oxygen saturation, heart rate, blood pressure, respiratory rate, EKG, adequacy of pulmonary ventilation, and response to care. Scope In: 2:51:34 PM Scope Withdrawal Time 0 hours 7 minutes 2 seconds Scope Out: 3:02:08 PM Total Procedure Duration Time 0 hours 10 minutes 34 seconds Findings: A few small and large-mouthed diverticula were found in the recto-sigmoid colon and sigmoid colon. The terminal ileum appeared normal. Biopsies were taken with a cold forceps for histology. Verification of patient identification for the specimen was done. Estimated blood loss was minimal. Impression: - Diverticulosis in the recto-sigmoid colon and in the sigmoid colon. - The examined portion of the ileum was normal. Biopsied. Recommendation: - Discharge patient to home. - Resume previous diet. - Continue present medications. - Repeat colonoscopy in 5 years for surveillance. Procedure Code(s): --- Professional --- 49380, Colonoscopy, flexible; with biopsy, single or multiple CPT copyright 2021 [employer]. All rights reserved. The codes documented in this report are preliminary and upon treating plant operator review may be revised to meet current compliance requirements. Victor Manuel Davies DO 09/02/2024 5:26:08 PM This report has been signed electronically. Number of Addenda: 0 Note Initiated On: 09/01/2024 2:49 PM
[2024-09-02] MEDS: Atorvastatin Calcium 80 MG Tablet PO (22:45)
[2024-09-03 03:35] VITALS: BP 106/45; PULSE 50; RESP 16; TEMP 36.8; O2SAT 97
[2024-09-03 07:30] LABS: Absolute Lymphocyte Count 0.96 X10^3/uL (0.83-4.51); Absolute Neutrophil Count 4.2 X10^3/uL (2.0-7.7); Basophil# 0.04 X10^3/uL; Basophil% 0.6 % (0-1); Eosinophils% 4.8 % (0-5); Hematocrit 25.1 % (37-47); Hemoglobin 7.8 g/dL (12.0-15.0); Lymphocyte # 0.96 X10^3/ul (0.83-4.51); Lymphocyte % 15.2 % (19-41); Mean Corp Hgb Conc 31.1 g/dL (32-36); Mean Corpuscular Hgb 24.4 pg (27.0-32.0); Mean Corpuscular Volume 78.4 fL (81-99); Mean Platelet Vol. 9.4 fl (6.2-12.0); Monocyte# 0.74 X10^3/uL; Monocyte% 11.7 % (0-10); NRBC Flagged by Analyzer 0 % (0-5); Neutrophil # 4.22 X10^3/uL (2.7-7.7); Neutrophil % 67.1 % (47-70); Platelet Count 365 K/mm3 (150-450); RBC Distribution Width CV 16.4 % (11.6-14.6); RBC Distribution Width SD 46.8 fl (35.1-43.9); White Blood Count 6.3 K/mm3 (4.4-11.0)
[2024-09-03 07:53] LABS: Anion Gap 5 (5-15); BUN 9 mg/dL (7-18); BUN/Creat Ratio 6.7 RATIO (10-20); Calcium,Total 8.3 mg/dL (8.5-10.1); Chloride 111 mmol/L (98-107); Creatinine, Serum 1.35 mg/dL (0.55-1.02); EST Glomerular Filtration Rate 41 mL/min (>60); Est Glom Filt Rate - Afr Amer 49 mL/min (>60); Estimated Creatinine Clearance 41.93 ml/min; Glucose 100 mg/dL (74-106); Potassium 3.9 mmol/L (3.5-5.1); Sodium Level 138 mmol/L (136-145)
[2024-09-03 08:14] VITALS: O2SAT 95
--- NOTE | 2024-09-03 08:39 | PN.CARD_ITS ---
<Statement entered by Tracy Ewing MD - 09/03/24 12:37> Pt seen & evaluated w/SANDEEP. I personally interviewed & exam the pt. I was involved in all aspects of pt's orders, interpretation of results & treatment To follow-up as an outpatient with event monitor versus loop recorder medical therapy Possibly evaluation for pacemaker We reviewed echocardiogram prior to discharge. Subjective Subjective Patient is not symptomatic currently. She does not have any lightheadedness or dizziness or worsening shortness of breath. Overnight it was noted that her heart rate did dip into the mid 20s. She has not been on any of her rate limiting medications. She is on her rate limiting medications for her atrial fibrillation. She also does have a history of mild coronary artery disease. Echocardiogram in 2022 demonstrated an ejection fraction of 40%. Objective Data Vital Signs: Vital Signs Temp Pulse Resp BP Pulse Ox O2 Del Method 98.2 F 50 L 16 106/45 L 95 Room Air 09/03/24 03:35 09/03/24 03:35 09/03/24 03:35 09/03/24 03:35 09/03/24 08:14 09/03/24 08:14 Oxygen Delivery Method Room Air Weight: 209 lb 3.499 oz Body Mass Index (BMI) 32.8 Intake & Output: Intake and Output for Last 24 Hours 09/01/24 09/02/24 09/03/24 23:59 23:59 23:59 Intake Total 1240 / 1240 1770 / 1770 Output Total 0 / 0 Balance 1240 / 1240 1770 / 1770 0 / 0 Lab / Micro Data 09/03/24 07:11 09/03/24 07:11 Labs: Laboratory Results - last 24 hr 08/31/24 14:45: Crossmatch See Detail 09/03/24 07:11: WBC 6.3, RBC 3.20 L, Hgb 7.8 L, Hct 25.1 L, MCV 78.4 L, MCH 24.4 L, MCHC 31.1 L, RDW Std Deviation 46.8 H, RDW Coeff of Brianna 16.4 H, Plt Count 365, MPV 9.4, Immature Gran % (Auto) 0.600, Neut % (Auto) 67.1, Lymph % (Auto) 15.2 L, [place] % (Auto) 11.7 H, Eos % (Auto) 4.8, Baso % (Auto) 0.6, Absolute Neuts (auto) 4.2, Absolute Lymphs (auto) 0.96, Nucleated RBC % 0, Sodium 138, Potassium 3.9, Chloride 111 H, Carbon Dioxide 22.0, Anion Gap 5, BUN 9, C reatinine 1.35 H, Estim Creat Clear Calc 41.93, Est GFR (MDRD) Af Amer 49 L, Est GFR (MDRD) Non-Af 41 L, BUN/Creatinine Ratio 6.7 L, Glucose 100, Calcium 8.3 L Rhythm Strip Rhythm Strip: Sinus bradycardia with a heart rate of 57. Cardiology Labs/Tests 09/03/24 07:11: WBC 6.3, RBC 3.20 L, Hgb 7.8 L, Hct 25.1 L, MCV 78.4 L, MCH 24.4 L, MCHC 31.1 L, Plt Count 365, MPV 9.4, Immature Gran % (Auto) 0.600, Neut % (Auto) 67.1, Lymph % (Auto) 15.2 L, [place] % (Auto) 11.7 H, Eos % (Auto) 4.8, Baso % (Auto) 0.6, Absolute Neuts (auto) 4.2, Nucleated RBC % 0, Sodium 138, Potassium 3.9, Chloride 111 H, Carbon Dioxide 22.0, Anion Gap 5, BUN 9, C reatinine 1.35 H, Est GFR (MDRD) Af Amer 49 L, Est GFR (MDRD) Non-Af 41 L, B UN/Creatinine Ratio 6.7 L, Glucose 100, Calcium 8.3 L Physical Exam Const alert, oriented x3 and no apparent distress HEENT normocephalic Head and Scalp: normal to inspection Face and Sinus: normal facial exam Nose: external nose normal General Ear: No hearing grossly impaired External Ear: external ears normal Eyes PERRL, EOMs intact bilaterally, conjunctivae normal and no scleral icterus Resp normal respiratory effort and clear to auscultation bilaterally Cardio Cardio Narrative: Bradycardic with a 2/6 systolic ejection murmur GI normal to inspection, nondistended, normoactive bowel sounds and soft to palpation Neuro oriented x3, CN's II-XII intact bilaterally and moves all extremities Assessment & Plan Assessment/Plan (1) Bradycardia: (2) Chronic systolic (congestive) heart failure: (3) Non-rheumatic mitral regurgitation: (4) Essential hypertension: (5) Atrial fibrillation: QUALIFIERS: Atrial fibrillation type: paroxysmal Qualified Code(s): I48.0 - Paroxysmal atrial fibrillation (6) Hyperlipidemia: PLAN: Plan * Recommend that we currently hold her rate limiting medications. Will continue to monitor her heart rate. Would recommend at discharge that we obtain a 14- day event monitor to continue to monitor her rhythm to make sure she does not require a pacemaker. * Patient does have history of congestive heart failure with a decreased ejection fraction of 40%. Would like to repeat an echocardiogram while she is here in the hospital so that we can further assess this. This will help us reinstitute which medications to start her on. She is not currently symptomatic. Her furosemide is currently on hold. * Patient does have a history of atrial fibrillation. She is currently in sinus rhythm with bradycardia. She is not anticoagulated due to her anemia and GI bleed. * Will follow-up with patient on an outpatient basis. Charges/Coding Visit Charges Inpatient E&M: 67757 Init Hosp L2
[2024-09-03 08:57] VITALS: BP 116/85; PULSE 97; RESP 16; TEMP 36.7; O2SAT 99
[2024-09-03] MEDS: Pantoprazole Sodium 40 MG in 0.9% Normal Saline (100mL MB+) 100 ML 330 MG IV ×2 (09:01→21:40)
[2024-09-03] MEDS: Aspirin E.C. 81 MG Tablet PO (09:01)
[2024-09-03 09:49] VITALS: O2SAT 97
--- NOTE | 2024-09-03 10:22 | ECHOCS_ITS ---
Reason For Study: MURMUR Procedure This was a 2D Doppler, Color Flow transthoracic echocardiogram. The study was technically difficult. Exam performed portable in patient room. Left Ventricle Mildly dilated left ventricle. The estimated ejection fraction is 45-50 %. Right Ventricle Normal right ventricle. Atria Normal left atrium. Normal right atrium. Mitral Valve There is mild mitral annular calcification. Tricuspid Valve The tricuspid valve is not well visualized. Aortic Valve The aortic valve is not well visualized. Pulmonic Valve The pulmonic valve is not well visualized. Great Vessels Normal aortic root. Medication Diluted definity 3ml given slow IV push to enhance endocardial definition. MMode/2D Measurements & Calculations LVIDd: 4.9 cm IVSd: 0.96 cm Ao root diam: 3.1 cm LVIDs: 3.5 cm LVPWd: 1.2 cm RVDd: 3.8 cm FS: 28.8 % _ LAV(MOD-bp): 52.9 ml LVAd ap4: 32.3 cm2 SV(MOD- sp4): 58.6 ml LAV(MOD-bp) Indexed: 25.7 ml/m2 LVLd ap4: 7.3 cm SI(MOD- sp4): 28.5 ml/m2 LAV(MOD-sp2): 55.7 ml EDV(MOD-sp4): 115.5 ml LAV(MOD-sp4): 51.7 ml EDV(sp4-el): 121.1 ml LVAs ap4: 20.6 cm2 LVLs ap4: 6.2 cm ESV(MOD-sp4): 56.9 ml ESV(sp4-el): 57.8 ml EF(MOD-sp4): 50.7 % EF(sp4-el): 52.2 % _ SV(sp4-el): 63.3 ml LA A4 area: 18.4 cm2 LA dimension(2D): 3.4 cm _ RA A4 area: 16.0 cm2 TAPSE: 2.2 cm Time Measurements MV dec time: 0.18 sec Doppler Measurements & Calculations MV E max iftikhar: 81.3 cm/sec Lat Peak E' Iftikhar: 16.4 cm/sec Med Peak E' Iftikhar: 12.6 cm/sec MV A max iftikhar: 59.0 cm/sec E/E' lat: 5.0 E/E' med: 6.5 MV E/A: 1.4 _ Ao V2 max: 184.3 cm/sec AI max iftikhar: 281.1 cm/sec LV V1 max: 111.2 cm/sec Ao max P.6 mmHg AI max P.6 mmHg LV V1 max P.9 mmHg AI dec slope: 166.5 cm/sec2 AI P1/2t: 494.6 msec _ PA V2 max: 94.2 cm/sec TR max iftikhar: 283.9 cm/sec TR max P.2 mmHg ECHO/Echo Complete W/ Contrast Interpretation Summary The estimated ejection fraction is 45-50 %. Mild LV dilatation With mild LV systolic dysfunction Contrast echo used/Definity. Ordering Physician: [place] Macario Referring Physician: WILL MARK Performed By: Maria Fernanda Hammond RDCS
--- NOTE | 2024-09-03 12:00 | CASEMGMT ---
RN CM in to discuss needs at discharge. Patient denies needs at discharge. Patient declining HHC or outpatient therapy at discharge. Patient states she has family to assist her at home. Patient denied further questions or concerns.
[2024-09-03 14:26] VITALS: BP 134/42; PULSE 58; RESP 18; TEMP 36.7; O2SAT 99
--- NOTE | 2024-09-03 16:34 | PN.HOSP_ITS ---
Reason for Visit Reason for Visit: Diagnoses Anemia, unspecified (08/31/24) Paroxysmal atrial fibrillation (08/31/24) Bradycardia, unspecified (08/31/24) Objective Data Objective Data Vital Signs: Vital Signs Temp Pulse Resp BP Pulse Ox O2 Del Method 98.1 F 58 L 18 134/42 H 99 Room Air 09/03/24 14:26 09/03/24 14:26 09/03/24 14:26 09/03/24 14:26 09/03/24 14:26 09/03/24 14:26 Oxygen Delivery Method Room Air Weight: 209 lb 3.499 oz Body Mass Index (BMI) 32.8 Intake & Output: Intake and Output for Last 24 Hours 09/01/24 09/02/24 09/03/24 23:59 23:59 23:59 Intake Total 1240 / 1240 1770 / 1770 360 / 360 Output Total 0 / 0 Balance 1240 / 1240 1770 / 1770 360 / 360 Lab / Micro Data 09/03/24 07:11 09/03/24 07:11 Labs: Laboratory Results - last 24 hr 09/03/24 07:11: WBC 6.3, RBC 3.20 L, Hgb 7.8 L, Hct 25.1 L, MCV 78.4 L, MCH 24.4 L, MCHC 31.1 L, RDW Std Deviation 46.8 H, RDW Coeff of Brianna 16.4 H, Plt Count 365, MPV 9.4, Immature Gran % (Auto) 0.600, Neut % (Auto) 67.1, Lymph % (Auto) 15.2 L, [place] % (Auto) 11.7 H, Eos % (Auto) 4.8, Baso % (Auto) 0.6, Absolute Neuts (auto) 4.2, Absolute Lymphs (auto) 0.96, Nucleated RBC % 0, Sodium 138, Potassium 3.9, Chloride 111 H, Carbon Dioxide 22.0, Anion Gap 5, BUN 9, Creatinine 1.35 H, Estim Creat Clear Calc 41.93, Est GFR (MDRD) Af Amer 49 L, Est GFR (MDRD) Non-Af 41 L, BUN/Creatinine Ratio 6.7 L, Glucose 100, Calcium 8.3 L Micro: Microbiology 08/31/24 16:33 Urine Catheter - Soto Urine Culture - Final Culture exhibits no growth. 08/31/24 16:25 Stool Stool Occult Blood (MELISSA) - Final Occult Blood Positive Radiography Diagnostic Testing: Radiology Impression Echocardiogram 09/03/24 10:22 Interpretation Summary The estimated ejection fraction is 45-50 %. Mild LV dilatation With mild LV systolic dysfunction Contrast echo used/Definity. Ordering Physician: [place] Macario Referring Physician: WILL MRAK Performed By: Maria Fernanda Hammond RDCS Rhythm Strip Rhythm Strip: Sinus bradycardia with a heart rate of 57. Physical Exam Narrative Seen and examined. Heart rate dipped down to 20s on the monitor but it is only in the low 40s. In afternoon, HR 58/min. Patient heart rate in low 40s. Toprol-XL, Cardizem and Aricept held. Trimmer Sorter consulted and discussed with him. Patient denies any external obvious bleeding including hematemesis, hematochezia/melena. No hematuria/menorrhagia/ bleed or other epistaxis Hemoglobin 7.8. No abdominal pain. Physical exam General: Alert, Oriented x3, Cooperative HEENT: Atraumatic, PERRLA, EOMI, Normocephalic Oral: No Gingival or Mucosal Lesions/ Ulcerations Neck: Supple, No JVD, Negative Carotid Bruits Chest wall/Lungs: Air entry diminished in bilateral lung bases. No crepitation/rhonchi Cardiovascular: Sinus bradycardia sometimes junctional rhythm. Normal S1, Normal S2, No M/G/R Abdomen: Bowel Sounds Present, Soft, Non Tender, Non-Distended : No dysuria. No renal angle tenderness. No suprapubic tenderness. Extremities: No edema, Capillary Refill Less than 3 Seconds Skin: No rashes, No breakdown Musculoskeletal: No Tenderness to Palpation of Joints or Extremities Neurological: Cranial nerves II-XII grossly intact, DTR 2+/4. No acute focal neurological deficit. Psych/Mental Status: Normal Affect, Appropriate. Assessment & Plan Assessment/Plan (1) Acute on chronic anemia: PLAN: Plan Patient is a 74-year-old female who presented [facility] ED on 08/31/2024 with fatigue with dizziness and acute on chronic anemia. Denies bleeding 1. Acute on chronic anemia with concern for occult GI bleed ? Admit under inpatient status to PCU. GI consulted. Hemoglobin 7.2 on admit, appears to be slowly decreasing over past few months. 09/01: Hemoglobin dropped to 6.2 g%. 1 unit PRBC ordered. Her hemoglobin was about 12 g in 2022 then dropped to 8.7 in July 2024. Hemodynamically blood pressure and heart rate in acceptable range. No hypoxia Iron studies shows very low ferritin 6, iron saturation 4.8%. Serum iron 18. Suggestive of iron deficiency anemia. B12 low at 229. Folic acid normal TSH normal. Continue IV PPI twice daily for now. Holding home Eliquis. Plan for EGD and colonoscopy 09/02: Hemoglobin 7.1. 1 more unit of PRBC ordered. 2. Paroxysmal A-fib on Eliquis ? In normal sinus rhythm on admit. Holding Eliquis as above. Continue home Toprol and diltiazem. 09/02: Severe bradycardia, heart rate in 40s with low blood pressure 100/50, 96/54.BP 108/60 mmHg after 500 mL bolus. Toprol, diltiazem and Aricept held. Trimmer Sorter consult reviewed and appreciated. No need to repeat echo 09/03: Severe bradycardia. Patient was delivered by waybill clerk. Event monitor/loop recorder at the time of discharge. Repeat echo was done on 09/03. EF 45 to 50%. Mildly dilated LV. Normal RV, right and left atrium. 3. History of CVA, nonobstructive CAD, HFrEF with nonischemic cardiomyopathy, hypertension, hyperlipidemia ? CT brain on admit showed right temporal occipital nonhemorrhagic infarction with mild senescent changes. On review of prior CT brain from 2022, appears this lesion was present at that time. Last echo in 2022 showed EF 40% with global LV dysfunction. Mildly hypertensive in the ED. Continue home aspirin, statin, diltiazem, losartan, Lasix and Toprol. 4. BPPV ? Suspected that dizziness on admit was due to vertigo as patient reports it is similar to her baseline. Could be mild exacerbated by worsening anemia. Continue home meclizine as needed. 5. Bedbug infestation ? Noted in the ED. Contact cautions in place. 6. Cognitive impairment ? Alert and answering questions appropriately on admit. Continue home donepezil. 7. Class I obesity ? BMI 32 on admit. Complicates hospital course, care and prognosis. DVT prophylaxis: SCDs CODE STATUS: Full code, verified Total time of the visit including total time spent in counseling or coordination of care, (more than 50% of the total time, spent in obtaining medical information from nurses and other ancillary care providers ,explaining to the patient about labs, imaging, diagnosis and management of active complex medical conditions), discussion with cardiology, review of labs and imaging is 40 minutes. Charges/Coding Visit Charges Inpatient E&M: 05918 Subs Hosp L2
[2024-09-03 21:38] VITALS: BP 152/62; PULSE 54; RESP 18; TEMP 36.4; O2SAT 98
[2024-09-03] MEDS: Atorvastatin Calcium 80 MG Tablet PO (21:40)
[2024-09-04 03:31] VITALS: BP 129/52; PULSE 59; RESP 18; TEMP 36.7; O2SAT 94
[2024-09-04] MEDS: Pantoprazole Sodium 40 MG in 0.9% Normal Saline (100mL MB+) 100 ML 330 MG IV (08:46)
[2024-09-04] MEDS: Aspirin E.C. 81 MG Tablet PO (09:00)
[2024-09-04 09:02] VITALS: BP 140/54; PULSE 53; RESP 17; TEMP 36.7; O2SAT 99
[2024-09-04 09:47] VITALS: BP 140/54; PULSE 53; RESP 18; TEMP 36.7; O2SAT 99
--- NOTE | 2024-09-04 09:47 | PCM.DC ---
Discharge Instructions DC O2, CPAP, BIPAP needs Home O2 Discharge instructions: No Follow Up Care Test Results: Test results from this visit will be discussed in further detail at your follow-up appointment, if applicable. Discharge Plan Admission Admit Date/Time: 08/31/24 18:41 Primary Reason for Your Visit: GI bleed, A-fib with severe bradycardia Attending Provider: Devon Burleson Primary Care Provider: Mane Lugo Consulting Providers: Otilio Abel; Ashok Larson Discharge Orders/Prescriptions Prescriptions: New furosemide 40 mg Tablet 40 mg PO DAILY 30 Days Qty: 30 0RF Rx Instructions: Hold Lasix for 5 days. ferrous sulfate 325 mg (65 mg iron) tablet 325 mg PO QODAY Qty: 30 2RF ascorbic acid (vitamin C) 500 mg tablet 500 mg PO BID Qty: 60 2RF Continued donepezil [Aricept] 5 mg tablet 5 mg PO DAILY Qty: 30 3RF meclizine [Antivert] 50 mg tablet 50 mg PO BID PRN (Reason: dizziness) Qty: 30 4RF ferrous sulfate 325 mg (65 mg iron) tablet 325 mg PO BID Qty: 100 4RF amiodarone 200 mg tablet 200 mg PO DAILY atorvastatin 80 mg tablet 80 mg PO QHS Qty: 90 3RF Changed losartan 100 mg tablet 50 mg PO DAILY 30 Days Qty: 0 0RF Held spironolactone 50 mg tablet 50 mg PO DAILY Hold Instructions: Hold spironolactone while holding Lasix. Eliquis 5 mg tablet 5 mg PO BID Qty: 180 3RF Hold Instructions: Hold for 5 more days and start lower dose 2.5 mg twice daily in consultation with PC Discontinued metoprolol succinate 25 mg tablet extended release 24 hr 25 mg PO DAILY Referrals / Follow Up: [facility] [Provider Group] - 10/15/24 1:00 pm (With [place] Macario ) Mane Lugo, DO [Primary Care Provider] - Disposition Disposition (needs filled in before D/C Order can be placed): Home, Self Care
--- NOTE | 2024-09-04 11:23 | PCM.DC.SUM ---
Providers Date of Admission: 08/31/24 Date of Discharge: 09/04/24 Primary Care Physician: Dr. Will Lugo, Consultations 08/31/24 19:45 Consult: Gastroenterology Routine Consulting Provider: Noe G[facility] Reason for Consult: acute on chronic anemia on eliquis, eval for EGD EMERGENT Consult: No Notified: Yes Date Notified: 08/31/24 Time Notified: 06:17 Method of Notification: Text 09/02/24 08:31 Consult: Cardiology Routine Consulting Provider: Ashok Larson Reason for Consult: severe bradycardia, dizziness EMERGENT Consult: No Notified: Yes Date Notified: 09/02/24 Time Notified: 08:31 Method of Notification: Text Reason For Visit: ACUTE ON CH RONIC ANEMIA W/CONCERN FOR GIB Diagnosis Discharge Diagnosis (1) Acute on chronic anemia: Status: Chronic Code(s): D64.9 - Anemia, unspecified Plan Patient is a 74-year-old female who presented [facility] ED on 08/31/2024 with fatigue with dizziness and acute on chronic anemia. Denies bleeding 1. Acute on chronic anemia with concern for occult GI bleed ? Admit under inpatient status to PCU. GI consulted. Hemoglobin 7.2 on admit, appears to be slowly decreasing over past few months. 09/01: Hemoglobin dropped to 6.2 g%. 1 unit PRBC ordered. Her hemoglobin was about 12 g in 2022 then dropped to 8.7 in July 2024. Hemodynamically blood pressure and heart rate in acceptable range. No hypoxia Iron studies shows very low ferritin 6, iron saturation 4.8%. Serum iron 18. Suggestive of iron deficiency anemia. B12 low at 229. Folic acid normal TSH normal. Continue IV PPI twice daily for now. Holding home Eliquis. Plan for EGD and colonoscopy 09/02: Hemoglobin 7.1. 1 more unit of PRBC ordered. 09/04: Hemoglobin improved to 7.8. Patient discharged on ferrous sulfate and vitamin C. Continue holding Eliquis for 5 more days and resume 2.5 mg twice daily with repeat CBC in consultation with PCP 2. Paroxysmal A-fib on Eliquis ? In normal sinus rhythm on admit. Holding Eliquis as above. Continue home Toprol and diltiazem. 09/02: Severe bradycardia, heart rate in 40s with low blood pressure 100/50, 96/54.BP 108/60 mmHg after 500 mL bolus. Toprol, diltiazem and Aricept held. Laborer Pipelines consult reviewed and appreciated. No need to repeat echo 09/03: Severe bradycardia. Patient was delivered by gas systems worker. Event monitor/loop recorder at the time of discharge. Repeat echo was done on 09/03. EF 45 to 50%. Mildly dilated LV. Normal RV, right and left atrium. 09/04: Bradycardia improved, heart rate 53/min. Patient discharged with ambulatory 48 hours of Holter monitor. Discussed with gas systems worker Dr. Alas. Follow-up in [place] [facility]. Amiodarone continued. Metoprolol discontinued. Continue holding 3. History of CVA, nonobstructive CAD, HFrEF with nonischemic cardiomyopathy, hypertension, hyperlipidemia ? CT brain on admit showed right temporal occipital nonhemorrhagic infarction with mild senescent changes. On review of prior CT brain from 2022, appears this lesion was present at that time. Last echo in 2022 showed EF 40% with global LV dysfunction. Mildly hypertensive in the ED. Continue home aspirin, statin, diltiazem, losartan, Lasix and Toprol. 09/04: Lasix and spironolactone held 4. BPPV ? Suspected that dizziness on admit was due to vertigo as patient reports it is similar to her baseline. Could be mild exacerbated by worsening anemia. Continue home meclizine as needed. 5. Bedbug infestation ? Noted in the ED. Contact cautions in place. 6. Cognitive impairment ? Alert and answering questions appropriately on admit. Continue home donepezil. 7. Class I obesity ? BMI 32 on admit. Complicates hospital course, care and prognosis. DVT prophylaxis: SCDs CODE STATUS: Full code, verified Discharge medication reconciliation done. Discharge follow-up instructions completed. Discharge process discussed with the patient and all questions were answered to patient's satisfaction. Follow with PCP in 1 to 2 weeks Total time spent, exact 35 minutes on discharge meds reconciliation, examination, coordination of care with nurses and ancillary staff, review of imaging and blood test and discussion with the patient on follow-up instructions. Medications at Discharge Home Medications apixaban 5 mg tablet (Eliquis) 5 mg PO BID #180 tabs 09/20/23 Held on 09/04/24. Instructions: Hold for 5 more days and start lower dose 2.5 mg twice daily in consultation with PC atorvastatin 80 mg tablet 80 mg PO QHS #90 tabs 04/23/23 donepezil 5 mg tablet (Aricept) 5 mg PO DAILY #30 tabs 04/24/23 meclizine 50 mg tablet (Antivert) 50 mg PO BID PRN dizziness #30 tabs 07/24/23 ferrous sulfate 325 mg (65 mg iron) tablet 325 mg PO BID #100 tabs 08/31/24 amiodarone 200 mg tablet 200 mg PO DAILY hr 09/01/24 spironolactone 50 mg tablet 50 mg PO DAILY hf 09/01/24 Held on 09/04/24. Instructions: Hold spironolactone while holding Lasix. ascorbic acid (vitamin C) 500 mg tablet 500 mg PO BID #60 tabs 09/04/24 ferrous sulfate 325 mg (65 mg iron) tablet 325 mg PO QODAY #30 tabs 09/04/24 furosemide 40 mg tablet 40 mg PO DAILY 30 days #30 tabs 09/04/24 losartan 100 mg tablet 50 mg (1/2 x 100 mg) PO DAILY 30 days #0 tabs 09/04/24 Physical Exam Narrative Seen and examined. Heart rate improved in 50s. Hemoglobin 7.8 g%. No abdominal pain. Physical exam General: Alert, Oriented x3, Cooperative HEENT: Atraumatic, PERRLA, EOMI, Normocephalic Oral: No Gingival or Mucosal Lesions/ Ulcerations Neck: Supple, No JVD, Negative Carotid Bruits Chest wall/Lungs: Air entry diminished in bilateral lung bases. No crepitation/rhonchi Cardiovascular: Sinus bradycardia sometimes junctional rhythm. Normal S1, Normal S2, No M/G/R Abdomen: Bowel Sounds Present, Soft, Non Tender, Non-Distended : No dysuria. No renal angle tenderness. No suprapubic tenderness. Extremities: No edema, Capillary Refill Less than 3 Seconds Skin: No rashes, No breakdown Musculoskeletal: No Tenderness to Palpation of Joints or Extremities Neurological: Cranial nerves II-XII grossly intact, DTR 2+/4. No acute focal neurological deficit. Psych/Mental Status: Normal Affect, Appropriate. Weight / BMI Weight Weight: 209 lb 3.499 oz Body Mass Index (BMI) 32.8 ABG / Lab / Microbiology Data 09/03/24 07:11 09/03/24 07:11 Microbiology: Microbiology 08/31/24 16:33 Urine Catheter - Soto Urine Culture - Final Culture exhibits no growth. 08/31/24 16:25 Stool Stool Occult Blood (MELISSA) - Final Occult Blood Positive Radiography Diagnostic Testing: Radiology Impression Echocardiogram 09/03/24 10:22 Interpretation Summary The estimated ejection fraction is 45-50 %. Mild LV dilatation With mild LV systolic dysfunction Contrast echo used/Definity. Ordering Physician: [place] Macario Referring Physician: WILL LUGO Performed By: Maria Fernanda Hammond RDCS D/C Instructions DC O2, CPAP, BIPAP Needs Home O2 Discharge instructions: No Meaningful Use Info Meaningful Use Meaningful Use Diagnoses (Choose all that apply): None applicable Ischemic Stroke Statin Dosing Therapy Reference: STATIN DOSE THERAPY REFERENCE: * Patients > 75 years receive moderate or high dose statin therapy. * Patients 75 years or YOUNGER should receive HIGH intensity statin dose unless contraindicated. You will be required to document reason for non-treatment if statin daily dose does not meet guidelines. HIGH DOSE STATIN THERAPY DAILY Atorvastatin > than or = to 40 mg Rosuvastatin > than or = to 20 mg Amlodipine + Atorvastatin > than or = to 2.5/40 mg Ezetimibe + Simvastatin 10/80 mg Simvastatin 80mg Discharge Plan Admission Admit Date/Time: 08/31/24 18:41 Primary Reason for Your Visit: GI bleed, A-fib with severe bradycardia Attending Provider: Devon Burleson Primary Care Provider: Will Lugo Consulting Providers: Otilio Abel; Ashok Larson Instructions Additional Instructions / Restrictions: Resume Lasix and spironolactone may be lower dose Lasix 20 mg daily and spironolactone 25 mg daily after 3 days. Discharge Orders/Prescriptions Prescriptions: New furosemide 40 mg Tablet 40 mg PO DAILY 30 Days Qty: 30 0RF Rx Instructions: Hold Lasix for 5 days. ferrous sulfate 325 mg (65 mg iron) tablet 325 mg PO QODAY Qty: 30 2RF ascorbic acid (vitamin C) 500 mg tablet 500 mg PO BID Qty: 60 2RF Continued donepezil [Aricept] 5 mg tablet 5 mg PO DAILY Qty: 30 3RF meclizine [Antivert] 50 mg tablet 50 mg PO BID PRN (Reason: dizziness) Qty: 30 4RF ferrous sulfate 325 mg (65 mg iron) tablet 325 mg PO BID Qty: 100 4RF amiodarone 200 mg tablet 200 mg PO DAILY atorvastatin 80 mg tablet 80 mg PO QHS Qty: 90 3RF Changed losartan 100 mg tablet 50 mg PO DAILY 30 Days Qty: 0 0RF Held spironolactone 50 mg tablet 50 mg PO DAILY Hold Instructions: Hold spironolactone while holding Lasix. Eliquis 5 mg tablet 5 mg PO BID Qty: 180 3RF Hold Instructions: Hold for 5 more days and start lower dose 2.5 mg twice daily in consultation with PC Discontinued metoprolol succinate 25 mg tablet extended release 24 hr 25 mg PO DAILY Other Ambulatory Orders: Cardiac Holter Monitor, 48 Hrs (Routine) Timeframe: 2 Days Facility: [facility] - Location: Cardiovascular Services Ordered By: Dr. Devon Burleson Referrals / Follow Up: [facility] [Provider Group] - 10/15/24 1:00 pm (With [place] Macario ) Will Lugo DO [Primary Care Provider] - Disposition Disposition (needs filled in before D/C Order can be placed): Home, Self Care Charges/Coding Visit Charges Inpatient E&M: 33541 Subs Hosp L2
== END 2024-09-04 12:49 | disposition home or self-care (01) | DRG 378 ==
LOC: ED 18:45 → PCU 18:58
PROVIDERS: Internal Medicine Gastroenterology; Admitting Provider Hospitalist; Emergency Provider Emergency Medicine; PCP Family Medicine; Visit Provider Internal Medicine
PROC: 0DJD8ZZ Inspection of Lower Intestinal Tract, Via Natural or Artificial Opening Endoscopic (ICD-10-PCS; CPT 45378; principal; 2024-09-01 13:55)
DX: K92.2 Gastrointestinal hemorrhage, unspecified (principal); D68.32 Hemorrhagic disorder due to extrinsic circulating anticoagulants; I42.8 Other cardiomyopathies; I50.22 Chronic systolic (congestive) heart failure; D12.3 Benign neoplasm of transverse colon; B88.8 Other specified infestations; G31.84 Mild cognitive impairment of uncertain or unknown etiology; I11.0 Hypertensive heart disease with heart failure; I48.0 Paroxysmal atrial fibrillation; D50.9 Iron deficiency anemia, unspecified; I35.1 Nonrheumatic aortic (valve) insufficiency; E66.811 Obesity, class 1; E78.00 Pure hypercholesterolemia, unspecified; I25.10 Atherosclerotic heart disease of native coronary artery without angina pectoris; H81.10 Benign paroxysmal vertigo, unspecified ear; I34.0 Nonrheumatic mitral (valve) insufficiency; R00.1 Bradycardia, unspecified; K44.9 Diaphragmatic hernia without obstruction or gangrene; K57.30 Diverticulosis of large intestine without perforation or abscess without bleeding; K62.89 Other specified diseases of anus and rectum; Z79.01 Long term (current) use of anticoagulants; Z79.82 Long term (current) use of aspirin; Z90.49 Acquired absence of other specified parts of digestive tract; Z68.32 Body mass index [BMI] 32.0-32.9, adult; Z86.73 Personal history of transient ischemic attack (TIA), and cerebral infarction without residual deficits; Z79.899 Other long term (current) drug therapy
CPT/HCPCS: 36415; 70450; 71046; 80048; 81001; 82274; 82607; 82728; 82746; 83540; 83550; 84443; 84484; 85014; 85018; 85025; 85027; 85610; 85730; 86850; 86900; 86901; 87086; 88305; 93005; 93306; 97162; 97166; 97530; 97535; 97802; 99285; P9016; Q9957; A4216; C8929; J2405

== ENCOUNTER → 2024-08-31 | Outpatient (CLI) | payer MEDICARE, MEDICAID, SELFPAY ==
[2024-08-31 10:21] LABS: Absolute Lymphocyte Count 0.65 X10^3/uL (0.83-4.51); Absolute Neutrophil Count 5.8 X10^3/uL (2.0-7.7); Basophil# 0.06 X10^3/uL; Basophil% 0.8 % (0-1); Eosinophil# 0.29 X10^3/uL; Eosinophils% 3.9 % (0-5); Hematocrit 26.1 % (37-47); Hemoglobin 7.8 g/dL (12.0-15.0); Lymphocyte # 0.65 X10^3/ul (0.83-4.51); Lymphocyte % 8.7 % (19-41); Mean Corp Hgb Conc 29.9 g/dL (32-36); Mean Corpuscular Hgb 23.1 pg (27.0-32.0); Mean Corpuscular Volume 77.4 fL (81-99); Monocyte# 0.68 X10^3/uL; Monocyte% 9.1 % (0-10); NRBC Flagged by Analyzer 0 % (0-5); Neutrophil # 5.75 X10^3/uL (2.7-7.7); Neutrophil % 76.8 % (47-70); Platelet Count 434 K/mm3 (150-450); RBC Distribution Width CV 16.1 % (11.6-14.6); RBC Distribution Width SD 45.6 fl (35.1-43.9); Red Blood Count 3.37 M/mm3 (4.2-5.4); White Blood Count 7.5 K/mm3 (4.4-11.0)
== END | disposition home or self-care (01) ==
PROVIDERS: PCP Family Medicine; Referring Provider Family Medicine; Visit Provider Family Medicine
DX: D64.9 Anemia, unspecified (principal)
CPT/HCPCS: 36415; 85025

== ENCOUNTER → 2024-09-04 | Outpatient (CLI) | payer MEDICARE, MEDICAID, SELFPAY | END | disposition home or self-care (01) | LOC: CVS 12:12 | PROVIDERS: PCP Family Medicine; Referring Provider Internal Medicine; Visit Provider Internal Medicine | DX: R00.1 Bradycardia, unspecified (principal) | CPT/HCPCS: 93225; 93226 ==

== ENCOUNTER → 2024-11-11 | Outpatient (CLI) | payer MEDICARE, MEDICAID, SELFPAY ==
[2024-11-11 13:10] LABS: Absolute Lymphocyte Count 1.51 X10^3/uL (0.83-4.51); Absolute Neutrophil Count 6.2 X10^3/uL (2.0-7.7); Basophil# 0.05 X10^3/uL; Basophil% 0.6 % (0-1); Eosinophil# 0.32 X10^3/uL; Eosinophils% 3.6 % (0-5); Hematocrit 31.1 % (37-47); Hemoglobin 9.7 g/dL (12.0-15.0); Lymphocyte # 1.51 X10^3/ul (0.83-4.51); Lymphocyte % 16.9 % (19-41); Mean Corp Hgb Conc 31.2 g/dL (32-36); Mean Corpuscular Hgb 27.3 pg (27.0-32.0); Mean Corpuscular Volume 87.6 fL (81-99); Mean Platelet Vol. 10.5 fl (6.2-12.0); Monocyte# 0.78 X10^3/uL; Monocyte% 8.8 % (0-10); NRBC Flagged by Analyzer 0 % (0-5); Neutrophil # 6.21 X10^3/uL (2.7-7.7); Neutrophil % 69.7 % (47-70); Platelet Count 341 K/mm3 (150-450); RBC Distribution Width CV 17.7 % (11.6-14.6); RBC Distribution Width SD 56.8 fl (35.1-43.9); Red Blood Count 3.55 M/mm3 (4.2-5.4); White Blood Count 8.9 K/mm3 (4.4-11.0)
[2024-11-11 14:25] LABS: Anion Gap 11 (5-15); BUN 21 mg/dL (4-19); BUN/Creat Ratio 15.9 RATIO (10-20); Calcium,Total 9.2 mg/dL (7.6-11.0); Carbon Dioxide 22.8 mmol/L (21.0-32.0); Chloride 105 mmol/L (98-108); Creatinine, Serum 1.32 mg/dL (0.70-1.20); EST Glomerular Filtration Rate 42 (>60); Glucose 94 mg/dL (70-99); Potassium 4.2 mmol/L (3.3-5.1); Sodium Level 139 mmol/L (133-145)
== END | disposition home or self-care (01) ==
LOC: LAB 12:20
PROVIDERS: PCP Family Medicine; Referring Provider Nurse Practitioner Family; Visit Provider Nurse Practitioner Family
DX: I50.22 Chronic systolic (congestive) heart failure (principal); D50.9 Iron deficiency anemia, unspecified; I35.1 Nonrheumatic aortic (valve) insufficiency; I36.1 Nonrheumatic tricuspid (valve) insufficiency
CPT/HCPCS: 36415; 80048; 85025

== ENCOUNTER → 2024-12-07 | Outpatient (CLI) | payer MEDICARE, MEDICAID, SELFPAY ==
[2024-12-07 15:31] LABS: Absolute Lymphocyte Count 1.56 X10^3/uL (0.83-4.51); Absolute Neutrophil Count 6.4 X10^3/uL (2.0-7.7); Basophil# 0.05 X10^3/uL; Basophil% 0.5 % (0-1); Eosinophil# 0.24 X10^3/uL; Eosinophils% 2.6 % (0-5); Hematocrit 33.2 % (37-47); Hemoglobin 10.3 g/dL (12.0-15.0); Lymphocyte # 1.56 X10^3/ul (0.83-4.51); Mean Corpuscular Hgb 26.8 pg (27.0-32.0); Mean Corpuscular Volume 86.2 fL (81-99); Mean Platelet Vol. 10.2 fl (6.2-12.0); Monocyte# 0.82 X10^3/uL; NRBC Flagged by Analyzer 0 % (0-5); Neutrophil # 6.42 X10^3/uL (2.7-7.7); Neutrophil % 70.2 % (47-70); Platelet Count 496 K/mm3 (150-450); RBC Distribution Width CV 15.7 % (11.6-14.6); RBC Distribution Width SD 47.7 fl (35.1-43.9); Red Blood Count 3.85 M/mm3 (4.2-5.4); White Blood Count 9.2 K/mm3 (4.4-11.0)
[2024-12-07 17:45] LABS: Iron 314 ug/dL (50-170); Iron Binding Capacity,Unsat 140 ug/dL (228-428)
[2024-12-07 18:04] LABS: Iron Binding Capacity,Total 454 ug/dL (250-450)
== END | disposition home or self-care (01) ==
LOC: BIMLAB 14:05
PROVIDERS: PCP Family Medicine; Visit Provider Family Medicine
DX: D50.9 Iron deficiency anemia, unspecified (principal)
CPT/HCPCS: 36415; 83540; 83550; 85025